=== PATIENT | female | born 1980 | race Caucasian/White ===

== ENCOUNTER → 2016-07-14 | Outpatient (CLI) | payer OTHER ==
--- NOTE | 2016-07-14 13:46 | CARD ---
APPROVED REPORT EXAM: Two-dimensional and M-mode echocardiogram with Doppler and color Doppler. Other Information Quality : GoodHR: 115bpm Rhythm : Tachycardia INDICATION Near syncope, Cardiac murmur 2D DIMENSIONS RVDd2.0 (2.9-3.5cm)Left Atrium(2D)2.9 (1.6-4.0cm) IVSd1.0 (0.7-1.1cm)Aortic Root(2D)3.1 (2.0-3.7cm) LVDd4.7 (3.9-5.9cm)LVOT Diameter2.1 (1.8-2.4cm) PWd0.7 (0.7-1.1cm)LVDs2.8 (2.5-4.0cm) FS (%) 40.1 %SV73.2 ml Aortic Valve AoV Peak Warren.129.3cm/sAoV VTI23.3cm AO Peak GR.6.7mmHgLVOT Peak Warren.98.0cm/s AO Mean GR.4mmHgAVA (VMAX)2.68cm2 Mitral Valve MV E Cpcjzqah358.7cm/sMV DECEL CDLD67yy MV A Dwvpskum548.0cm/sE/A Ratio0.7 MV A Kwsjqyud73ea Pulmonary Valve PV Peak Ftbgzcjq47.6cm/s Tricuspid Valve TR P. Bqlfspcs472th/sTR Peak Gr.46mmHg Pulmonary Vein S1 Knmodcyh63.7cm/sD2 Vhjevnsv41.9cm/s PVa [id number] LEFT VENTRICLE The left ventricle is normal size. There is normal left ventricular wall thickness. The left ventricu lar systolic function is normal and the ejection fraction is within normal range. The Ejection Fracti on is 60-65%. There is normal LV segmental wall motion. Transmitral Doppler flow pattern is Grade I-a bnormal relaxation pattern. RIGHT VENTRICLE The right ventricle is normal size. There is normal right ventricular wall thickness. The right ventr icular systolic function is normal. ATRIA The left atrium size is normal. The right atrium size is normal. The interatrial septum is intact wit h no evidence for an atrial septal defect or patent foramen ovale as noted on 2-D or Doppler imaging. AORTIC VALVE The aortic valve is normal in structure and function. Doppler and Color Flow revealed no significant aortic regurgitation. There is no significant aortic valvular stenosis. MITRAL VALVE There is no evidence of mitral valve prolapse. There is no mitral valve stenosis. Doppler and Color F low revealed trace to mild mitral regurgitation. TRICUSPID VALVE Doppler and Color Flow revealed mild tricuspid regurgitation. The pulmonary artery systolic pressure is estimated at 42 mmHg. PULMONIC VALVE The pulmonary valve is normal in structure and function. Doppler and Color Flow revealed no pulmonic valvular regurgitation. There is no pulmonic valvular stenosis. GREAT VESSELS The aortic root is normal in size. The ascending aorta is normal in size. The pulmonary artery is nor mal. The IVC is normal in size and collapses >50% with inspiration. PERICARDIAL EFFUSION There is no pleural effusion. There is no evidence of significant pericardial effusion. Critical Notification Critical Value: No <Conclusion> The left ventricle is normal size. The left ventricular systolic function is normal and the ejection fraction is within normal range. The Ejection Fraction is 60-65%. There is no significant aortic valvular stenosis. Doppler and Color Flow revealed no significant aortic regurgitation. Doppler and Color Flow revealed trace to mild mitral regurgitation. Doppler and Color Flow revealed mild tricuspid regurgitation. The pulmonary artery systolic pressure is estimated at 42 mmHg.
== END | disposition home or self-care (01) ==
LOC: ECHO 09:03
PROVIDERS: ATTEND Internal Medicine Cardiovascular Disease
DX: I34.0 Nonrheumatic mitral (valve) insufficiency (principal); I07.1 Rheumatic tricuspid insufficiency
CPT/HCPCS: 93306

== ENCOUNTER → 2016-07-15 | Outpatient (CLI) | payer OTHER ==
--- NOTE | 2016-07-15 10:41 | RAD ---
Right hip, 2 views, 07/15/2016: History: Degenerative change at the hip The right hip joint is well maintained. The femoral head is smooth. The periarticular soft tissues are unremarkable. Surgical sutures are noted in the pelvis. IMPRESSION: No significant right hip abnormality is detected.
== END | disposition home or self-care (01) ==
LOC: RAD 09:53
PROVIDERS: ATTEND Family Medicine
DX: M16.11 Unilateral primary osteoarthritis, right hip (principal)
CPT/HCPCS: 73502

== ENCOUNTER → 2017-05-14 | Outpatient (CLI) | payer OTHER | END | disposition home or self-care (01) | LOC: KCIC MRI 13:08 | DX: R55 Syncope and collapse (principal); G43.919 Migraine, unspecified, intractable, without status migrainosus | CPT/HCPCS: 70551 ==

== ENCOUNTER 2017-08-25 15:24 | Emergency (ER) | payer OTHER ==
[2017-08-25] MEDS: ONDANSETRON PF 4 MG/2 ML VIAL. IV (16:00)
[2017-08-25] MEDS: IV NORMAL SALINE 1000ML BAG 1,000 ML IV (16:00)
[2017-08-25 16:05] LABS: URINE HCG POC HCG NEGATIVE (Negative)
[2017-08-25 16:09] LABS: BILIRUBIN,URINE NEGATIVE (NEG); CLARITY,URINE CLOUDY; COLOR,URINE YELLOW; GLUCOSE,URINE NEGATIVE (NEG); NITRITE,URINE NEGATIVE (NEG); PROTEIN,URINE NEGATIVE (NEG-TRACE)
[2017-08-25 16:15] LABS: BACTERIA,URINE MODERATE /HPF (0-FEW); BARBITURATES NEG (NEG); BENZODIAZEPINES NEG (NEG); CANNABINOIDS NEG (NEG); COCAINE NEG (NEG); METHADONE NEG (NEG); OPIATES NEG (NEG); PHENCYCLIDINE NEG (NEG); RBC,URINE >40 /HPF (0-2); SQUAMOUS EPITHELIAL CELL,UR MOD /LPF
[2017-08-25 16:17] LABS: AMPHETAMINE/METHAMPHETAMINE NEG (NEG); ETHANOL, URINE NEG (NEG)
[2017-08-25 16:44] LABS: ADD MAN DIFF? NO
[2017-08-25 16:46] LABS: BASO # 0.1 x10^3/uL (0.0-0.2); BASO % 1 % (0-3); EOS # 0.1 x10^3/uL (0.0-0.7); EOS % 1 % (0-3); HEMATOCRIT 39.7 % (36.0-47.0); HEMOGLOBIN 13.7 g/dL (12.0-15.5); LYMPH # 3.1 x10^3/uL (1.0-4.8); LYMPH % 33 % (24-48); MEAN CORPUSCULAR HEMOGLOBIN 32 pg (25-35); MEAN CORPUSCULAR HGB CONC 35 g/dL (31-37); MEAN CORPUSCULAR VOLUME 91 fL (79-100); MONO # 0.7 x10^3/uL (0.0-1.1); MONO % 7 % (0-9); NEUT # 5.4 x10^3uL (1.8-7.7); NEUT % 58 % (31-73); PLATELET COUNT 377 x10^3/uL (140-400); RED BLOOD COUNT 4.36 x10^6/uL (3.50-5.40); RED CELL DISTRIBUTION WIDTH 12.5 % (11.5-14.5); WHITE BLOOD COUNT 9.3 x10^3/uL (4.0-11.0)
[2017-08-25 16:55] LABS: PROTHROMBIN TIME PATIENT 12.7 SEC (11.7-14.0)
[2017-08-25 17:00] LABS: ETHANOL < 10 mg/dL (0-10)
[2017-08-25 17:01] LABS: ANION GAP 11 (6-14); BLOOD UREA NITROGEN 11 mg/dL (7-20); BUN/CREATININE RATIO 10 (6-20); CALCIUM 8.7 mg/dL (8.5-10.1); CARBON DIOXIDE 24 mmol/L (21-32); CHLORIDE 106 mmol/L (98-107); CREATININE 1.1 mg/dL (0.6-1.0); GFR 56.2; GLUCOSE 118 mg/dL (70-99); POTASSIUM 3.7 mmol/L (3.5-5.1); SODIUM 141 mmol/L (136-145)
[2017-08-25 17:07] LABS: ALBUMIN 3.7 g/dL (3.4-5.0); ALK PHOS 90 U/L (46-116); ALT (SGPT) 21 U/L (14-59); AST (SGOT) 15 U/L (15-37); LIPASE 405 U/L (73-393); MAGNESIUM 1.8 mg/dL (1.8-2.4); TOTAL BILIRUBIN 0.5 mg/dL (0.2-1.0); TOTAL PROTEIN 7.4 g/dL (6.4-8.2)
[2017-08-25 17:09] LABS: TROPONINI < 0.017 ng/mL (0.000-0.055)
[2017-08-25 17:17] LABS: NT-PRO BNP 87 pg/mL (0-124); THYROID STIM HORMONE (TSH) 1.195 uIU/mL (0.358-3.74)
[2017-08-25 17:17] LABS: CKMB MASS < 0.5 ng/mL (0.0-3.6); CREATINE KINASE 50 U/L (26-192)
[2017-08-25] MEDS: fentaNYL PF VIAL 100 MCG/2 ML VIAL IV (17:50)
[2017-08-25] MEDS: TAMSULOSIN 0.4 MG CAP.ER.24H. PO (17:50)
[2017-08-25] MEDS: KETOROLAC 30 MG/ML INJ. IV (17:51)
== END 2017-08-25 18:20 | disposition home or self-care (01) ==
LOC: ER 15:24
DX: N20.0 Calculus of kidney (principal); R42 Dizziness and giddiness; Z87.442 Personal history of urinary calculi
CPT/HCPCS: 36415; 71046; 74176; 80053; 80307; 81001; 81025; 82553; 83690; 83735; 83880; 84443; 84484; 85025; 85610; 87086; 93005; 96361; 96374; 96375; 99285-25; G0480; J1885; J2405; J3010; J7030

== ENCOUNTER 2018-03-08 13:12 | Emergency (ER) | payer OTHER ==
[~2018-03-08] VITALS: Ht 165.1 cm; Wt 90.8 kg
[~2018-03-08 13:12] MED LIST: ALPR0.5T6 PO; CIPR500T94 PO; DIVA500T17 PO; FLUD0.1T PO; HYDR-971 PO; LACT460C PO; LEVO50TA5 PO; LEXAPRO20 MG PO; MULT1TAB52 PO; ONDA4TAB10 SL; OXYC-411 PO; PRAZ1CAP2 PO; TAMS0.4C97 PO; TOPI100T8 PO; TRAM50TA PO; [UNRECOGNIZED DRUG - OTHER] PO
--- NOTE | 2018-03-08 14:21 | PHYS DOC ---
Past Medical History Past Medical History: Anxiety, Depression, Hypothyroid, Kidney Stone, Migraines , Other Additional Past Medical Histor: ptsd Past Surgical History: Tonsillectomy, Other Additional Past Surgical Histo: partial hyster, r leg Alcohol Use: None Drug Use: None Adult General Chief Complaint Chief Complaint: FLANK PAIN HPI HPI Patient is a 37 year old female who presents to the emergency room for evaluation. She states that about 4 days ago she had a gradual onset of left flank pain, which radiated towards her left lower abdomen and pelvic area. She reports some discomfort with urination, and somewhat of a decreased urine output. She has not had any vomiting or fever. She denies any chills, dizziness , lightheadedness, numbness, weakness. She has had a prior hysterectomy. She denies abnormal vaginal bleeding or other pelvic pain. She has had kidney stones in the past and states that this pain feels similar to her prior kidney stones. She states her last episode of kidney stones was about 3 months ago. There are no alleviating or exacerbating factors to the patient's symptoms except as noted above. Review of Systems Review of Systems Constitutional: Denies fever or chills [] Eyes: Denies change in visual acuity, redness, or eye pain [] HENT: Denies nasal congestion or sore throat [] Respiratory: Denies cough or shortness of breath [] Cardiovascular: The patient denies any shortness of breath, chest pain, palpitations, or orthopnea [] GI: Denies vomiting, bloody stools or diarrhea [] : Denies hematuria. Reports some dysuria. [] Musculoskeletal: Denies midline back pain or joint pain [] Integument: Denies rash or skin lesions [] Neurologic: Denies headache, focal weakness or sensory changes [] Endocrine: Denies polyuria or polydipsia [] All other systems were reviewed and found to be within normal limits, except as documented in this note. Current Medications Current Medications Current Medications Medications (Trade) Dose Ordered Sig/Clarissa Start Time Stop Time Status Last Admin Dose Admin Ketorolac Tromethamine (Toradol 30mg Vial) 30 mg 1X ONCE 03/08/18 14:30 03/08/18 14:31 DC 03/08/18 14:44 30 MG Sodium Chloride 1,000 ml @ 1,000 mls/hr Q1H 03/08/18 14:30 03/08/18 15:29 DC 03/08/18 14:43 1,000 MLS/HR Allergies Allergies Allergies Coded Allergies Type Severity Reaction Last Updated Verified No Known Drug Allergies 08/25/17 No Physical Exam Physical Exam PHYSICAL EXAM: CONSTITUTIONAL: Well developed, well nourished HEAD: normocephalic, atraumatic EENT: PERRL, EOMI. Conjunctivae normal color, sclerae non-icteric; moist mucous membranes. NECK: Supple, non-tender; no meningismus. LUNGS: Lungs CTA, breathing even and unlabored. Normal air movement. HEART: Regular rate and rhythm, no murmur CHEST: No deformity; non-tender ABDOMEN: The abdomen is soft, there is mild diffuse left mid and lower abdominal tenderness to palpation, without rebound or guarding. The remainder the abdomen is soft and non-tender, no masses or bruits. EXTREM: Normal ROM; no deformity, no calf tenderness. Normal pulses palpable in all extremities. There is no pedal edema. SKIN: No rash; no diaphoresis NEURO: Alert; normal speech and cognition; CN's grossly intact; strength grossly intact without focal deficit. BACK: There is mild left-sided CVA tenderness to palpation. There is no right CVA TTP, and no midline vertebral tenderness to palpation. Current Patient Data Vital Signs Vital Signs Date Time Temp Pulse Resp B/P (MAP) Pulse Ox O2 Delivery O2 Flow Rate FiO2 03/08/18 14:43 90 22 117/67 (84) 100 Room Air 03/08/18 13:17 98.2 98.2 Lab Values Laboratory Tests Test 03/08/18 13:36 03/08/18 13:58 White Blood Count 8.0 x10^3/uL (4.0-11.0) Red Blood Count 4.21 x10^6/uL (3.50-5.40) Hemoglobin 13.5 g/dL (12.0-15.5) Hematocrit 38.6 % (36.0-47.0) Mean Corpuscular Volume 92 fL (79-100) Mean Corpuscular Hemoglobin 32 pg (25-35) Mean Corpuscular Hemoglobin Concent 35 g/dL (31-37) Red Cell Distribution Width 12.4 % (11.5-14.5) Platelet Count 279 x10^3/uL (140-400) Neutrophils (%) (Auto) 60 % (31-73) Lymphocytes (%) (Auto) 33 % (24-48) Monocytes (%) (Auto) 5 % (0-9) Eosinophils (%) (Auto) 2 % (0-3) Basophils (%) (Auto) 1 % (0-3) Neutrophils # (Auto) 4.8 x10^3uL (1.8-7.7) Lymphocytes # (Auto) 2.6 x10^3/uL (1.0-4.8) Monocytes # (Auto) 0.4 x10^3/uL (0.0-1.1) Eosinophils # (Auto) 0.1 x10^3/uL (0.0-0.7) Basophils # (Auto) 0.1 x10^3/uL (0.0-0.2) Urine Collection Type U cath Urine Color Yellow Urine Clarity Clear Urine pH 7.0 Urine Specific [place] 1.020 Urine Protein 30 mg/dL (NEG-TRACE) Urine Glucose (UA) Negative mg/dL (NEG) Urine Ketones (Stick) Negative mg/dL (NEG) Urine Blood Moderate (NEG) Urine Nitrite Negative (NEG) Urine Bilirubin Negative (NEG) Urine Urobilinogen Dipstick 1.0 mg/dL (0.2 mg/dL) Urine Leukocyte Esterase Trace (NEG) Urine RBC 11-20 /HPF (0-2) Urine WBC 5-10 /HPF (0-4) Urine Squamous Epithelial Cells Mod /LPF Urine Bacteria Few /HPF (0-FEW) Urine Mucus Mod /LPF Sodium Level 142 mmol/L (136-145) Potassium Level 3.4 mmol/L (3.5-5.1) L Chloride Level 107 mmol/L (98-107) Carbon Dioxide Level 24 mmol/L (21-32) Anion Gap 11 (6-14) Blood Urea Nitrogen 13 mg/dL (7-20) Creatinine 1.0 mg/dL (0.6-1.0) Estimated GFR (Cockcroft-Gault) 62.7 BUN/Creatinine Ratio 13 (6-20) Glucose Level 109 mg/dL (70-99) H Calcium Level 8.8 mg/dL (8.5-10.1) Total Bilirubin 0.3 mg/dL (0.2-1.0) Aspartate Amino Transferase (AST) 20 U/L (15-37) Alanine Aminotransferase (ALT) 36 U/L (14-59) Alkaline Phosphatase 70 U/L (46-116) Total Protein 7.2 g/dL (6.4-8.2) Albumin 3.3 g/dL (3.4-5.0) L Albumin/Globulin Ratio 0.8 (1.0-1.7) L Lipase 102 U/L (73-393) POC Urine HCG, Qualitative Hcg negative (Negative) Laboratory Tests 03/08/18 13:36 Laboratory Tests 03/08/18 13:36 EKG EKG [] Radiology/Procedures Radiology/Procedures [PROCEDURE: CT ABDOMEN PELVIS WO CONTRAST PQRS Compliance Statement: One or more of the following individualized dose reduction techniques were utilized for this examination: 1. Automated exposure control 2. Adjustment of the mA and/or kV according to patient size 3. Use of iterative reconstruction technique CT ABDOMEN PELVIS WO CONTRAST Clinical Indication: RIGHT SIDE FLANK PAIN Comparison: CT abdomen and pelvis without contrast, August 25. Technique: Helical CT imaging of the abdomen and pelvis is performed without IV or oral contrast. Findings: Mild bilateral lower lobe atelectasis or scarring. Cardiac size is normal. Gallbladder is contracted, limiting evaluation. The liver, spleen, pancreas, adrenal glands, and abdominal aorta are normal. There are multiple bilateral mostly sub-5 mm renal calculi. No ureteral calculus. No hydronephrosis. Stomach unremarkable. No dilated small bowel. Sigmoid and descending colon diverticulosis. The appendix is normal. There is no colon wall thickening. The urinary bladder is well-distended, otherwise normal. Uterus surgically absent. Probable small left ovary functional cyst. No pelvic free fluid. IMPRESSION: 1. No obstructive uropathy. 2. Multiple bilateral nonobstructing renal calculi, similar to prior study. 3. Distal colon diverticulosis without diverticulitis. ] Course & Med Decision Making Course & Med Decision Making Pertinent Labs and Imaging studies reviewed. (See chart for details) 3:30 PM: The patient's condition remained stable. I discussed test results, the exact uncertain etiology of her symptoms, although I do suspect her urinalysis more likely represents urine contamination with skin cells as opposed to an actual UTI, because of her symptoms of dysuria she'll be treated empirically for possible UTI. I discussed importance of close follow-up with her urologist and return precautions. [] Obi Disclaimer Dragon Disclaimer This electronic medical record was generated, in whole or in part, using a voice recognition dictation system. Departure Departure Impression: Primary Impression: Flank pain Disposition: 01 HOME, SELF-CARE Condition: STABLE Referrals: OLE BARRERA MD (PCP) CURTIS CROCKETT MD Patient Instructions: Flank Pain Scripts Diclofenac Sodium (DICLOFENAC SODIUM) 50 Mg Tablet.dr 1 TAB PO BID, #20 TAB 0 Refills Prov: SHOAIB AGRAWAL MD 03/08/18 Sulfamethoxazole/Trimethoprim (BACTRIM DS TABLET) 1 Each Tablet 1 TAB PO BID, #14 TAB Prov: SHOAIB AGRAWAL MD 03/08/18 SHOAIB AGRAWAL MD Mar 08, 2018 14:21
[2018-03-08] MEDS ORDERED: IV NORMAL SALINE 1000ML BAG 1,000 ML IV SCH (14:30)
[2018-03-08] MEDS ORDERED: KETOROLAC 30 MG/ML VIAL. IV ONE (14:30)
[2018-03-08 14:39] LABS: BASO # 0.1 x10^3/uL (0.0-0.2); BASO % 1 % (0-3); EOS # 0.1 x10^3/uL (0.0-0.7); EOS % 2 % (0-3); HEMATOCRIT 38.6 % (36.0-47.0); HEMOGLOBIN 13.5 g/dL (12.0-15.5); LYMPH # 2.6 x10^3/uL (1.0-4.8); LYMPH % 33 % (24-48); MEAN CORPUSCULAR HEMOGLOBIN 32 pg (25-35); MEAN CORPUSCULAR HGB CONC 35 g/dL (31-37); MEAN CORPUSCULAR VOLUME 92 fL (79-100); MONO # 0.4 x10^3/uL (0.0-1.1); MONO % 5 % (0-9); NEUT # 4.8 x10^3uL (1.8-7.7); NEUT % 60 % (31-73); PLATELET COUNT 279 x10^3/uL (140-400); RED BLOOD COUNT 4.21 x10^6/uL (3.50-5.40); RED CELL DISTRIBUTION WIDTH 12.4 % (11.5-14.5)
[2018-03-08 14:40] LABS: BILIRUBIN,URINE NEGATIVE (NEG); CLARITY,URINE CLEAR; COLOR,URINE YELLOW; NITRITE,URINE NEGATIVE (NEG); PROTEIN,URINE 30 mg/dL (NEG-TRACE)
[2018-03-08 14:48] LABS: CALCIUM 8.8 mg/dL (8.5-10.1); GFR 62.7; POTASSIUM 3.4 mmol/L (3.5-5.1)
[2018-03-08 14:51] LABS: ALBUMIN 3.3 g/dL (3.4-5.0); ALBUMIN/GLOBULIN RATIO 0.8 (1.0-1.7); TOTAL BILIRUBIN 0.3 mg/dL (0.2-1.0); TOTAL PROTEIN 7.2 g/dL (6.4-8.2)
[2018-03-08 14:57] LABS: BACTERIA,URINE FEW /HPF (0-FEW); SQUAMOUS EPITHELIAL CELL,UR MOD /LPF
--- NOTE | 2018-03-08 15:15 | RAD ---
PQRS Compliance Statement: One or more of the following individualized dose reduction techniques were utilized for this examination: 1. Automated exposure control 2. Adjustment of the mA and/or kV according to patient size 3. Use of iterative reconstruction technique CT ABDOMEN PELVIS WO CONTRAST Clinical Indication: RIGHT SIDE FLANK PAIN Comparison: CT abdomen and pelvis without contrast, August 25. Technique: Helical CT imaging of the abdomen and pelvis is performed without IV or oral contrast. Findings: Mild bilateral lower lobe atelectasis or scarring. Cardiac size is normal. Gallbladder is contracted, limiting evaluation. The liver, spleen, pancreas, adrenal glands, and abdominal aorta are normal. There are multiple bilateral mostly sub-5 mm renal calculi. No ureteral calculus. No hydronephrosis. Stomach unremarkable. No dilated small bowel. Sigmoid and descending colon diverticulosis. The appendix is normal. There is no colon wall thickening. The urinary bladder is well-distended, otherwise normal. Uterus surgically absent. Probable small left ovary functional cyst. No pelvic free fluid. IMPRESSION: 1. No obstructive uropathy. 2. Multiple bilateral nonobstructing renal calculi, similar to prior study. 3. Distal colon diverticulosis without diverticulitis. Electronically signed by: Raad Lora MD (03/08/2018 3:11 PM) [id number]
[2018-03-08 15:30] VITALS: BP 119/84
[2018-03-08] MEDS ORDERED: SULF1TAB24 PO (15:33)
[2018-03-08] MEDS ORDERED: DICL50TA4 PO (15:33)
[2018-03-08] MEDS ORDERED: fentaNYL PF VIAL 100 MCG/2 ML VIAL IV ONE (15:45)
== END 2018-03-08 16:36 | disposition home or self-care (01) ==
LOC: ER 13:12
DX: R10.32 Left lower quadrant pain (principal); E03.9 Hypothyroidism, unspecified; Z90.89 Acquired absence of other organs
CPT/HCPCS: 36415; 74176; 80053; 81001; 81025; 83690; 85025; 87086; 96374; 96375; 99285; J1885; J3010; J7030

== ENCOUNTER 2018-05-30 13:58 | Emergency (ER) | payer MEDICAID, OTHER ==
[~2018-05-30] VITALS: Ht 167.6 cm; Wt 81.6 kg
[~2018-05-30 13:58] MED LIST changes: +DICL50TA4 PO; +HYDR-3164 PO; -HYDR-971 PO; +SULF1TAB24 PO
[2018-05-30] MEDS ORDERED: IV NORMAL SALINE 1000ML BAG 1,000 ML IV ONE (14:30)
--- NOTE | 2018-05-30 14:32 | PHYS DOC ---
Past Medical History Past Medical History: Anxiety, Depression, Hypothyroid, Kidney Stone, Migraines , Other Additional Past Medical Histor: ptsd Past Surgical History: Tonsillectomy, Other Additional Past Surgical Histo: partial hyster, r leg Alcohol Use: None Drug Use: None Adult General Chief Complaint Chief Complaint: URINARY RETENTION HPI HPI 37 y/o female presents to ER for c/o rt lower abd/groin pain with difficulty urinating. She reports symptoms started yesterday and have been gradually worsening. Patient states she has history of kidney stones as well as growth on her right ovary. Patient has had partial hysterectomy due to endometriosis. Patient states she has appointment scheduled on the at [facility] for further evaluation for growth on her right ovary. Patient states she has been having difficulty urinating but has been able to void this morning. Pt denies fever, V/D, change in bowel pattern, or swelling. She denies vaginal symptoms or concerns for STDs. Patient states she has had recent pelvic exam which was normal limits. Review of Systems Review of Systems Constitutional: Denies fever or chills [] Respiratory: Denies cough or shortness of breath [] Cardiovascular: No additional information not addressed in HPI [] GI: Denies vomiting, bloody stools or diarrhea. Reports rt lower abd/groin pain with intermittent nausea : Denies hematuria. Reports difficulty urinating with dysuria. Denies vaginal symptoms concerns for STDs as she has monogamous relationship with boyfriend. Musculoskeletal: Denies back pain or joint pain [] Integument: Denies rash, swelling or skin lesions [] Neurologic: Denies headache, focal weakness or sensory changes [] All other systems were reviewed and found to be within normal limits, except as documented in this note. Current Medications Current Medications Current Medications Medications (Trade) Dose Ordered Sig/Clarissa Start Time Stop Time Status Last Admin Dose Admin Fentanyl Citrate (Fentanyl 2ml Vial) 50 mcg 1X ONCE 05/30/18 15:45 05/30/18 15:46 DC 05/30/18 15:52 50 MCG Ketorolac Tromethamine (Toradol 15mg Vial) 15 mg 1X ONCE 05/30/18 16:30 05/30/18 16:31 DC 05/30/18 16:46 15 MG Ondansetron HCl (Zofran) 4 mg 1X ONCE 05/30/18 15:00 05/30/18 15:01 DC 05/30/18 14:39 4 MG Sodium Chloride 1,000 ml @ 1,000 mls/hr 1X ONCE 05/30/18 14:30 05/30/18 15:29 DC 05/30/18 14:30 1,000 MLS/HR Allergies Allergies Allergies Coded Allergies Type Severity Reaction Last Updated Verified No Known Drug Allergies 08/25/17 No Physical Exam Physical Exam Constitutional: Well developed, well nourished, no acute distress, non-toxic appearance. [] HENT: Normocephalic, atraumatic, bilateral external ears normal, oropharynx moist, no oral exudates, nose normal. [] Eyes: Pupils equal, conjunctiva normal, no discharge. [] Neck: Normal range of motion, no tenderness, supple, no stridor. [] Cardiovascular: Heart rate regular rhythm, no murmur [] Lungs & Thorax: Bilateral breath sounds clear to auscultation. Resp. equal/ nonlabored Abdomen: Bowel sounds normal, soft- no distention/rigidity, tender to palp. rt lower abd/groin- no rebound tenderness, no masses, no pulsatile masses. [] Skin: Warm, dry, no erythema, no rash. [] Back: No tenderness, no CVA tenderness. [] Extremities: No tenderness, no cyanosis, no clubbing, ROM intact, no edema. [] Neurologic: Alert and oriented X 3, normal motor function, normal sensory function, no focal deficits noted. [] Psychologic: Affect normal, judgement normal, mood normal. [] Current Patient Data Vital Signs Vital Signs Date Time Temp Pulse Resp B/P (MAP) Pulse Ox O2 Delivery O2 Flow Rate FiO2 05/30/18 16:45 82 16 99 05/30/18 14:42 98.7 116/71 (86) Room Air 98.7 Lab Values Laboratory Tests Test 05/30/18 14:10 05/30/18 14:30 Urine Collection Type Unknown Urine Color Yellow Urine Clarity Clear Urine pH 6.5 Urine Specific [place] 1.010 Urine Protein Negative mg/dL (NEG-TRACE) Urine Glucose (UA) Negative mg/dL (NEG) Urine Ketones (Stick) Negative mg/dL (NEG) Urine Blood Large (NEG) Urine Nitrite Negative (NEG) Urine Bilirubin Negative (NEG) Urine Urobilinogen Dipstick 0.2 mg/dL (0.2 mg/dL) Urine Leukocyte Esterase Negative (NEG) Urine RBC 11-20 /HPF (0-2) Urine WBC 1-4 /HPF (0-4) Urine Squamous Epithelial Cells Many /LPF Urine Bacteria Many /HPF (0-FEW) Urine Mucus Slight /LPF White Blood Count 6.7 x10^3/uL (4.0-11.0) Red Blood Count 4.55 x10^6/uL (3.50-5.40) Hemoglobin 14.3 g/dL (12.0-15.5) Hematocrit 42.0 % (36.0-47.0) Mean Corpuscular Volume 92 fL (79-100) Mean Corpuscular Hemoglobin 32 pg (25-35) Mean Corpuscular Hemoglobin Concent 34 g/dL (31-37) Red Cell Distribution Width 12.8 % (11.5-14.5) Platelet Count 330 x10^3/uL (140-400) Neutrophils (%) (Auto) 46 % (31-73) Lymphocytes (%) (Auto) 41 % (24-48) Monocytes (%) (Auto) 8 % (0-9) Eosinophils (%) (Auto) 4 % (0-3) H Basophils (%) (Auto) 1 % (0-3) Neutrophils # (Auto) 3.1 x10^3uL (1.8-7.7) Lymphocytes # (Auto) 2.7 x10^3/uL (1.0-4.8) Monocytes # (Auto) 0.6 x10^3/uL (0.0-1.1) Eosinophils # (Auto) 0.3 x10^3/uL (0.0-0.7) Basophils # (Auto) 0.1 x10^3/uL (0.0-0.2) Sodium Level 138 mmol/L (136-145) Potassium Level 3.9 mmol/L (3.5-5.1) Chloride Level 105 mmol/L (98-107) Carbon Dioxide Level 27 mmol/L (21-32) Anion Gap 6 (6-14) Blood Urea Nitrogen 8 mg/dL (7-20) Creatinine 0.8 mg/dL (0.6-1.0) Estimated GFR (Cockcroft-Gault) 81.2 BUN/Creatinine Ratio 10 (6-20) Glucose Level 86 mg/dL (70-99) Calcium Level 8.6 mg/dL (8.5-10.1) Total Bilirubin 0.3 mg/dL (0.2-1.0) Aspartate Amino Transferase (AST) 15 U/L (15-37) Alanine Aminotransferase (ALT) 25 U/L (14-59) Alkaline Phosphatase 69 U/L (46-116) Total Protein 7.1 g/dL (6.4-8.2) Albumin 3.4 g/dL (3.4-5.0) Albumin/Globulin Ratio 0.9 (1.0-1.7) L Laboratory Tests 05/30/18 14:30 Laboratory Tests 05/30/18 14:30 EKG EKG [] Radiology/Procedures Radiology/Procedures PROCEDURE: CT ABDOMEN PELVIS WO CONTRAST PQRS Compliance Statement: One or more of the following individualized dose reduction techniques were utilized for this examination: 1. Automated exposure control 2. Adjustment of the mA and/or kV according to patient size 3. Use of iterative reconstruction technique CT ABDOMEN PELVIS WO CONTRAST Clinical Indication: rt lower abd pain- hx of kidney stones Comparison: CT abdomen and pelvis without contrast, March 08, 2018. Technique: Helical CT imaging of the abdomen and pelvis is performed without IV or oral contrast. Findings: Minimal dependent atelectasis the lung bases. Cardiac size normal. Gallbladder is mostly contracted, limiting evaluation. Liver, spleen, pancreas, adrenal glands, and abdominal aorta caliber are normal. Multiple bilateral nonobstructing renal calculi are similar to prior study. There is mild right hydroureteronephrosis secondary to a 6 x 3 mm calculus at the ureterovesicular junction, image 209. Urinary bladder is normal. Stomach unremarkable. No dilated small bowel. The appendix is normal. There is moderate distal colon diverticulosis. No colon wall thickening is seen. No abdominal adenopathy or free fluid. Hysterectomy. Ovaries relatively symmetric. Trace pelvic free fluid is probably physiologic. No acute bone abnormality. IMPRESSION: 1. Mild right obstructive uropathy secondary to a 6 x 3 mm calculus at the ureterovesicular junction. 2. Bilateral nonobstructing renal calculi. 3. Distal colon diverticulosis without diverticulitis. Electronically signed by: Raad Lora MD (05/30/2018 4:15 PM) [facility] DICTATED and SIGNED BY: RAAD LORA MD DATE: 05/30/18 0240 Course & Med Decision Making Course & Med Decision Making Pertinent Labs and Imaging studies reviewed. (See chart for details) 1530: Discussed lab results with patient with labs unremarkable and UA with large blood and negative leukocytes. Patient states she's had minimal relief from initial dose pain medicine will provide second dose. CT abdomen and pelvis is pending. Is nontoxic in appearance at this time and has had no episodes of vomiting. She has been able to urinate while in the ER. 1635: Discussed CT results with patient with 6 x 3 mm obstructive stone right UVJ with mild hydroureter nephrosis-appendix normal limits. Patient reports last dose of pain medicine improved her pain and at this time reports pain to be tolerable. Discussed plans for home discharge as patient has follow-up with urology this week and patient is comfortable with this plan. Patient's WBCs were 6.7 no bands BUN/creatinine normal limits at 8/0.8. UA with large blood negative leukocytes and nitrates. Patient had had partial hysterectomy in past. Patient remains nontoxic in appearance and in no visible distress during this discussion. Advised on signs and symptoms to return to ER for. We will provide prescriptions for Flomax, Zofran ODT, and [place] tablets. Patient reports she has been on those medications in the past and tolerated fine. Will provide dose of Toradol prior to discharge. She is currently denying any nausea. Discharge instructions were discussed and patient was advised to call her urology office in the morning and discuss emergency department visit. Staff Physician Addendum: I was working in the ER during the course of this patient's visit. I was available for consultation as needed, but I was not directly involved in the care of this patient. Dragon Disclaimer Dragon Disclaimer This electronic medical record was generated, in whole or in part, using a voice recognition dictation system. Departure Departure Impression: Primary Impression: Hydroureteronephrosis Additional Impression: Kidney stone on right side Disposition: HOME, SELF-CARE Condition: STABLE Referrals: OLE BARRERA MD (PCP) Patient Instructions: Kidney Stones Additional Instructions: As discussed call your urology office tomorrow and discuss emergency department visit. Drink plenty of water. Ibuprofen as directed on container as needed for additional pain control. Scripts Tamsulosin Hcl (FLOMAX) 0.4 Mg Cap.er.24h 0.4 MG PO DAILY, #7 TAB 0 Refills Prov: HAJA VICENTE APRN 05/30/18 Hydrocodone/Apap 5-325 (NORCO 5-325 TABLET) 1 Each Tablet 1-2 TAB PO Q4-6HRS PRN for PAIN, #16 TAB 0 Refills Prov: HAJA VICENTE APRN 05/30/18 Ondansetron (ONDANSETRON ODT) 4 Mg Tab.rapdis 1 TAB PO PRN Q6-8HRS PRN for NAUSEA, #8 TAB 0 Refills Prov: HAJA VICENTE APRN 05/30/18 Problem Qualifiers HAJA VICENTE APRN May 30, 2018 14:32 OPAL CASTELLON MD May 30, 2018 17:59
[2018-05-30 14:41] LABS: BASO # 0.1 x10^3/uL (0.0-0.2); BASO % 1 % (0-3); EOS # 0.3 x10^3/uL (0.0-0.7); EOS % 4 % (0-3); HEMOGLOBIN 14.3 g/dL (12.0-15.5); LYMPH # 2.7 x10^3/uL (1.0-4.8); LYMPH % 41 % (24-48); MEAN CORPUSCULAR HEMOGLOBIN 32 pg (25-35); MEAN CORPUSCULAR HGB CONC 34 g/dL (31-37); MEAN CORPUSCULAR VOLUME 92 fL (79-100); MONO # 0.6 x10^3/uL (0.0-1.1); MONO % 8 % (0-9); NEUT # 3.1 x10^3uL (1.8-7.7); NEUT % 46 % (31-73); PLATELET COUNT 330 x10^3/uL (140-400); RED BLOOD COUNT 4.55 x10^6/uL (3.50-5.40); RED CELL DISTRIBUTION WIDTH 12.8 % (11.5-14.5); WHITE BLOOD COUNT 6.7 x10^3/uL (4.0-11.0)
[2018-05-30 14:43] LABS: BILIRUBIN,URINE NEGATIVE (NEG); CLARITY,URINE CLEAR; COLOR,URINE YELLOW; NITRITE,URINE NEGATIVE (NEG); PH,URINE 6.5; PROTEIN,URINE NEGATIVE (NEG-TRACE); UROBILINOGEN,URINE 0.2 mg/dL (0.2 mg/dL)
[2018-05-30 14:52] LABS: BACTERIA,URINE MANY /HPF (0-FEW); SQUAMOUS EPITHELIAL CELL,UR MANY /LPF
[2018-05-30 15:00] LABS: ALBUMIN 3.4 g/dL (3.4-5.0); ALBUMIN/GLOBULIN RATIO 0.9 (1.0-1.7); CALCIUM 8.6 mg/dL (8.5-10.1); CREATININE 0.8 mg/dL (0.6-1.0); GFR 81.2; POTASSIUM 3.9 mmol/L (3.5-5.1); TOTAL BILIRUBIN 0.3 mg/dL (0.2-1.0); TOTAL PROTEIN 7.1 g/dL (6.4-8.2)
[2018-05-30] MEDS ORDERED: ONDANSETRON PF 4 MG/2 ML VIAL. IV ONE (15:00)
[2018-05-30] MEDS ORDERED: fentaNYL PF VIAL 100 MCG/2 ML VIAL IV ONE ×2 (15:00→15:45)
--- NOTE | 2018-05-30 16:19 | RAD ---
PQRS Compliance Statement: One or more of the following individualized dose reduction techniques were utilized for this examination: 1. Automated exposure control 2. Adjustment of the mA and/or kV according to patient size 3. Use of iterative reconstruction technique CT ABDOMEN PELVIS WO CONTRAST Clinical Indication: rt lower abd pain- hx of kidney stones Comparison: CT abdomen and pelvis without contrast, March 08, 2018. Technique: Helical CT imaging of the abdomen and pelvis is performed without IV or oral contrast. Findings: Minimal dependent atelectasis the lung bases. Cardiac size normal. Gallbladder is mostly contracted, limiting evaluation. Liver, spleen, pancreas, adrenal glands, and abdominal aorta caliber are normal. Multiple bilateral nonobstructing renal calculi are similar to prior study. There is mild right hydroureteronephrosis secondary to a 6 x 3 mm calculus at the ureterovesicular junction, image 209. Urinary bladder is normal. Stomach unremarkable. No dilated small bowel. The appendix is normal. There is moderate distal colon diverticulosis. No colon wall thickening is seen. No abdominal adenopathy or free fluid. Hysterectomy. Ovaries relatively symmetric. Trace pelvic free fluid is probably physiologic. No acute bone abnormality. IMPRESSION: 1. Mild right obstructive uropathy secondary to a 6 x 3 mm calculus at the ureterovesicular junction. 2. Bilateral nonobstructing renal calculi. 3. Distal colon diverticulosis without diverticulitis. Electronically signed by: Raad Lora MD (05/30/2018 4:15 PM) [facility]
[2018-05-30] MEDS ORDERED: KETOROLAC 15 MG/ML VIAL. IV ONE (16:30)
[2018-05-30] MEDS ORDERED: HYDR-3164 PO (16:44)
[2018-05-30] MEDS ORDERED: ONDA4TAB12 PO (16:44)
[2018-05-30] MEDS ORDERED: TAMS0.4C97 PO (16:44)
[2018-05-30 16:45] VITALS: BP 111/65
== END 2018-05-30 17:29 | disposition home or self-care (01) ==
LOC: ER 13:58
DX: N13.30 Unspecified hydronephrosis (principal); N20.0 Calculus of kidney; E03.9 Hypothyroidism, unspecified; Z90.89 Acquired absence of other organs
CPT/HCPCS: 36415; 74176; 80053; 81001; 85025; 87086; 96374; 96375; 96376; 99284; J1885; J2405; J3010; J7030

== ENCOUNTER 2018-06-14 19:32 | Emergency (ER) | payer OTHER ==
[~2018-06-14] VITALS: Ht 165.1 cm; Wt 86.2 kg
[~2018-06-14 19:32] MED LIST changes: +ONDA4TAB12 PO
[2018-06-14] MEDS ORDERED: IV NORMAL SALINE 1000ML BAG 1,000 ML IV SCH (20:22)
--- NOTE | 2018-06-14 20:28 | PHYS DOC ---
Past Medical History Past Medical History: Hypothyroid, Migraines Additional Past Medical Histor: ptsd Past Surgical History: Hysterectomy Additional Past Surgical Histo: partial hyster, r leg Alcohol Use: None Drug Use: None Adult General Chief Complaint Chief Complaint: POST-OP PROBLEM HPI HPI is a 37-year-old female who presents with complaint of abdominal pain after having recent surgery. Patient states that she had laparoscopic surgery to evaluate a pelvic mass and states that it was found to be her ovary. She states that she was told that the ovary and tube were moved and clipped. She states that since that time she has had a lot of pain up under her right ribs. She states that she was told by the surgeon to do a lot of walking after the surgery to relieve any gas and states that she also took a laxative to make sure she wasn't just constipated. She states that she has been moving her bowels well. She rates the pain at an 8 out of 10. She also complains of right- sided neck pain that radiates into her right shoulder and down her right arm. She states that that pain has been present ever since the surgery. She believes that pain is associated with the recent surgery. Review of Systems Review of Systems Constitutional: Denies fever or chills [] Respiratory: Denies cough or shortness of breath [] Cardiovascular: No additional information not addressed in HPI [] GI: Complains of postoperative abdominal pain without nausea, vomiting or diarrhea [] : [place] of dysuria and vaginal inflammation [] Neurologic: Denies headache, focal weakness or sensory changes [] All other systems were reviewed and found to be within normal limits, except as documented in this note. Current Medications Current Medications Current Medications Medications (Trade) Dose Ordered Sig/Clarissa Start Time Stop Time Status Last Admin Dose Admin Fentanyl Citrate (Fentanyl 2ml Vial) 25 mcg 1X ONCE 06/14/18 20:30 06/14/18 20:31 DC 06/14/18 20:46 25 MCG Info (CONTRAST GIVEN -- Rx MONITORING) 1 each PRN DAILY PRN 06/14/18 20:45 06/16/18 20:44 Iohexol (Omnipaque 300 Mg/ml) 75 ml 1X ONCE 06/14/18 20:45 06/14/18 20:46 DC 06/14/18 22:00 75 ML Ondansetron HCl (Zofran) 4 mg 1X ONCE 06/14/18 20:30 06/14/18 20:31 DC 06/14/18 20:46 4 MG Sodium Chloride 1,000 ml @ 1,000 mls/hr Q1H 06/14/18 20:22 06/14/18 21:21 DC 06/14/18 20:47 1,000 MLS/HR Allergies Allergies Allergies Coded Allergies Type Severity Reaction Last Updated Verified No Known Drug Allergies 08/25/17 No Physical Exam Physical Exam Constitutional: Well developed, well nourished, no acute distress, non-toxic appearance. [] HENT: Normocephalic, atraumatic, bilateral external ears normal, oropharynx moist, no oral exudates, nose normal. [] Eyes: PERRLA, EOMI, conjunctiva normal, no discharge. [] Neck: Normal range of motion, with tenderness to palpation around the cervical strap musculature on the right. [] Cardiovascular:Heart rate regular rhythm, no murmur [] Lungs & Thorax: Bilateral breath sounds clear to auscultation [] Abdomen: Bowel sounds normal, soft, with right upper abdominal tenderness. [] Skin: Warm, dry, no erythema, no rash. [] Extremities: No tenderness, no cyanosis, no clubbing, ROM intact, no edema. [] Neurologic: Alert and oriented X 3, no focal deficits noted. [] Current Patient Data Vital Signs Vital Signs Date Time Temp Pulse Resp B/P (MAP) Pulse Ox O2 Delivery O2 Flow Rate FiO2 06/14/18 20:46 18 99 Room Air 06/14/18 19:40 97.6 115 126/74 (91) 97.6 Lab Values Laboratory Tests Test 06/14/18 19:40 06/14/18 19:53 06/14/18 20:45 Urine Color Yellow Urine Clarity Clear Urine pH 8.0 Urine Specific [place] 1.010 Urine Protein Negative mg/dL (NEG-TRACE) Urine Glucose (UA) Negative mg/dL (NEG) Urine Ketones (Stick) Negative mg/dL (NEG) Urine Blood Negative (NEG) Urine Nitrite Negative (NEG) Urine Bilirubin Negative (NEG) Urine Urobilinogen Dipstick 0.2 mg/dL (0.2 mg/dL) Urine Leukocyte Esterase Negative (NEG) Urine RBC 0 /HPF (0-2) Urine WBC 1-4 /HPF (0-4) Urine Squamous Epithelial Cells Occ /LPF Urine Amorphous Sediment Present /HPF Urine Bacteria 0 /HPF (0-FEW) POC Urine HCG, Qualitative Hcg negative (Negative) White Blood Count 10.0 x10^3/uL (4.0-11.0) Red Blood Count 4.66 x10^6/uL (3.50-5.40) Hemoglobin 14.4 g/dL (12.0-15.5) Hematocrit 43.3 % (36.0-47.0) Mean Corpuscular Volume 93 fL (79-100) Mean Corpuscular Hemoglobin 31 pg (25-35) Mean Corpuscular Hemoglobin Concent 33 g/dL (31-37) Red Cell Distribution Width 13.2 % (11.5-14.5) Platelet Count 335 x10^3/uL (140-400) Neutrophils (%) (Auto) 57 % (31-73) Lymphocytes (%) (Auto) 31 % (24-48) Monocytes (%) (Auto) 6 % (0-9) Eosinophils (%) (Auto) 5 % (0-3) H Basophils (%) (Auto) 1 % (0-3) Neutrophils # (Auto) 5.7 x10^3uL (1.8-7.7) Lymphocytes # (Auto) 3.1 x10^3/uL (1.0-4.8) Monocytes # (Auto) 0.6 x10^3/uL (0.0-1.1) Eosinophils # (Auto) 0.5 x10^3/uL (0.0-0.7) Basophils # (Auto) 0.1 x10^3/uL (0.0-0.2) Sodium Level 140 mmol/L (136-145) Potassium Level 3.8 mmol/L (3.5-5.1) Chloride Level 103 mmol/L (98-107) Carbon Dioxide Level 28 mmol/L (21-32) Anion Gap 9 (6-14) Blood Urea Nitrogen 9 mg/dL (7-20) Creatinine 0.7 mg/dL (0.6-1.0) Estimated GFR (Cockcroft-Gault) 94.7 BUN/Creatinine Ratio 13 (6-20) Glucose Level 59 mg/dL (70-99) L Calcium Level 9.1 mg/dL (8.5-10.1) Total Bilirubin 0.2 mg/dL (0.2-1.0) Aspartate Amino Transferase (AST) 28 U/L (15-37) Alanine Aminotransferase (ALT) 37 U/L (14-59) Alkaline Phosphatase 80 U/L (46-116) Total Protein 7.8 g/dL (6.4-8.2) Albumin 3.6 g/dL (3.4-5.0) Albumin/Globulin Ratio 0.9 (1.0-1.7) L Lipase 80 U/L (73-393) Laboratory Tests 06/14/18 20:45 Laboratory Tests 06/14/18 20:45 EKG EKG [] Radiology/Procedures Radiology/Procedures [] Impressions: REASON: postop abd pain; had lap surgery on the PROCEDURE: CT ABD PELV W/ IV CONTRST ONLY PQRS Compliance statement: One or more of the following individualized dose reduction techniques were utilized for this examination: 1. Automated exposure control. 2. Adjustment of the mA and/or kV according to patient size. 3. Use of iterative reconstruction technique. Indication:POST OP ABD PAIN; OVARIAN SURGERY; OMNI 300, 75ML TECHNIQUE: CT abdomen and pelvis with IV contrast with multiplanar reformats. COMPARISON: 05/30/2018 FINDINGS: Heart is normal in size. No pericardial or pleural effusion. Clear lung bases. Liver, spleen, gallbladder, pancreas, adrenals within normal limits. Multiple bilateral renal stones are seen. The largest stone in the left kidney measures 8 mm. No nephrolithiasis. No free pelvic fluid or ascites. Scattered colonic diverticuli. No bowel obstruction. Normal appendix. Status post hysterectomy. Urinary bladder is within normal limits. Bilateral ovaries are seen. Small pneumoperitoneum. No suspicious bony lesion. IMPRESSION: 1. Small pneumoperitoneum which may be secondary to recent surgery. 2. Nonobstructing bilateral renal stones. Critical findings were identified on 06/14/2018 10:16 PM, read back and verified with Dr. Keene on 06/14/2018 10:[address] Dyllan James DO. Electronically signed by: Dyllan James DO (06/14/2018 10:26 PM) [facility] Course & Med Decision Making Course & Med Decision Making Pertinent Labs and Imaging studies reviewed. (See chart for details) [] Dragon Disclaimer Dragon Disclaimer This electronic medical record was generated, in whole or in part, using a voice recognition dictation system. Departure Departure Impression: Primary Impression: Postoperative abdominal pain Additional Impression: Cervical paraspinal muscle spasm Disposition: 01 HOME, SELF-CARE Condition: STABLE Referrals: OLE BARRERA MD (PCP) Patient Instructions: Muscle Cramps, Pain Relief Preoperatively and Postoperatively Scripts Fluconazole (DIFLUCAN) 150 Mg Tablet 1 TAB PO ONCE, #1 TAB 1 Refill Prov: DON KEENE Jr. DO 06/14/18 Orphenadrine Citrate (ORPHENADRINE CITRATE) 100 Mg Tablet.er 1 TAB PO BID PRN for MUSCLE SPASMS, #20 TAB Prov: DON KEENE Jr. DO 06/14/18 Hydrocodone/Apap 5-325 (NORCO 5-325 TABLET) 1 Each Tablet 1 EACH PO PRN Q6HRS PRN for PAIN, #15 as needed for pain Prov: DON KEENE Jr. DO 06/14/18 Problem Qualifiers DON KEENE Jr. DO Jun 14, 2018 20:28
[2018-06-14] MEDS ORDERED: fentaNYL PF VIAL 100 MCG/2 ML VIAL IV ONE (20:30)
[2018-06-14] MEDS ORDERED: ONDANSETRON PF 4 MG/2 ML VIAL. IV ONE (20:30)
[2018-06-14 20:32] LABS: BILIRUBIN,URINE NEGATIVE (NEG); CLARITY,URINE CLEAR; COLOR,URINE YELLOW; NITRITE,URINE NEGATIVE (NEG); PROTEIN,URINE NEGATIVE (NEG-TRACE); UROBILINOGEN,URINE 0.2 mg/dL (0.2 mg/dL)
[2018-06-14 20:39] LABS: AMORPHOUS SEDIMENT,UR PRESENT /HPF; BACTERIA,URINE 0 /HPF (0-FEW); RBC,URINE 0 /HPF (0-2); SQUAMOUS EPITHELIAL CELL,UR OCC /LPF
[2018-06-14] MEDS ORDERED: CONTRAST GIVEN. MC PRN (20:45)
[2018-06-14] MEDS ORDERED: IOHEXOL 300 MG/ML 100ML VIAL. IV ONE (20:45)
--- NOTE | 2018-06-14 21:16 | RAD ---
Indication: Lower neck pain after abdominal surgery one week ago TECHNIQUE: 3 views of the cervical spine COMPARISON: None FINDINGS: Cervical spine demonstrates straightening. This could be due to muscle spasm or positioning. Atlantoaxial joint interval is preserved. No compression deformity. No significant facet arthropathy. Prevertebral soft tissue within normal limits. Visualized lung apices are clear. IMPRESSION: No acute findings. Electronically signed by: Dyllan James DO (06/14/2018 9:12 PM) [facility]
[2018-06-14 21:38] LABS: BASO # 0.1 x10^3/uL (0.0-0.2); BASO % 1 % (0-3); EOS # 0.5 x10^3/uL (0.0-0.7); EOS % 5 % (0-3); HEMATOCRIT 43.3 % (36.0-47.0); HEMOGLOBIN 14.4 g/dL (12.0-15.5); LYMPH # 3.1 x10^3/uL (1.0-4.8); LYMPH % 31 % (24-48); MEAN CORPUSCULAR HEMOGLOBIN 31 pg (25-35); MEAN CORPUSCULAR HGB CONC 33 g/dL (31-37); MEAN CORPUSCULAR VOLUME 93 fL (79-100); MONO # 0.6 x10^3/uL (0.0-1.1); MONO % 6 % (0-9); NEUT # 5.7 x10^3uL (1.8-7.7); NEUT % 57 % (31-73); PLATELET COUNT 335 x10^3/uL (140-400); RED BLOOD COUNT 4.66 x10^6/uL (3.50-5.40); RED CELL DISTRIBUTION WIDTH 13.2 % (11.5-14.5)
[2018-06-14 21:49] LABS: CALCIUM 9.1 mg/dL (8.5-10.1); CREATININE 0.7 mg/dL (0.6-1.0); GFR 94.7; POTASSIUM 3.8 mmol/L (3.5-5.1)
[2018-06-14 21:55] LABS: ALBUMIN 3.6 g/dL (3.4-5.0); ALBUMIN/GLOBULIN RATIO 0.9 (1.0-1.7); TOTAL BILIRUBIN 0.2 mg/dL (0.2-1.0); TOTAL PROTEIN 7.8 g/dL (6.4-8.2)
--- NOTE | 2018-06-14 22:31 | RAD ---
PQRS Compliance statement: One or more of the following individualized dose reduction techniques were utilized for this examination: 1. Automated exposure control. 2. Adjustment of the mA and/or kV according to patient size. 3. Use of iterative reconstruction technique. Indication:POST OP ABD PAIN; OVARIAN SURGERY; OMNI 300, 75ML TECHNIQUE: CT abdomen and pelvis with IV contrast with multiplanar reformats. COMPARISON: 05/30/2018 FINDINGS: Heart is normal in size. No pericardial or pleural effusion. Clear lung bases. Liver, spleen, gallbladder, pancreas, adrenals within normal limits. Multiple bilateral renal stones are seen. The largest stone in the left kidney measures 8 mm. No nephrolithiasis. No free pelvic fluid or ascites. Scattered colonic diverticuli. No bowel obstruction. Normal appendix. Status post hysterectomy. Urinary bladder is within normal limits. Bilateral ovaries are seen. Small pneumoperitoneum. No suspicious bony lesion. IMPRESSION: 1. Small pneumoperitoneum which may be secondary to recent surgery. 2. Nonobstructing bilateral renal stones. Critical findings were identified on 06/14/2018 10:16 PM, read back and verified with Dr. Keene on 06/14/2018 10:[address] Dyllan James DO. Electronically signed by: Dyllan James DO (06/14/2018 10:26 PM) [facility]
[2018-06-14 22:33] VITALS: BP 112/68
[2018-06-14] MEDS ORDERED: HYDR-3164 PO (22:48)
[2018-06-14] MEDS ORDERED: FLUC150T PO (22:48)
[2018-06-14] MEDS ORDERED: ORPH100T PO (22:48)
== END 2018-06-14 23:00 | disposition home or self-care (01) ==
LOC: ER 19:32
DX: G89.18 Other acute postprocedural pain (principal); R10.11 Right upper quadrant pain; M62.838 Other muscle spasm; M25.511 Pain in right shoulder; E03.9 Hypothyroidism, unspecified; G43.909 Migraine, unspecified, not intractable, without status migrainosus; Z90.711 Acquired absence of uterus with remaining cervical stump
CPT/HCPCS: 36415; 72040; 74177; 80053; 81001; 81025; 83690; 85025; 96374; 96375; 99284; J2405; J3010; J7030; Q9967

== ENCOUNTER 2018-09-04 14:19 | Emergency (ER) | payer OTHER ==
[~2018-09-04] VITALS: Ht 165.1 cm; Wt 86.2 kg
[~2018-09-04 14:19] MED LIST changes: +FLUC150T PO; +ORPH100T PO
[2018-09-04 14:34] VITALS: BP 135/68
[2018-09-04] MEDS ORDERED: NAPROXEN 500 MG TABLET PO STA (14:50)
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
[2018-09-04] MEDS ORDERED: cefTRIAXone IM 250 MG VIAL IM ONE (15:00)
[2018-09-04] MEDS ORDERED: AZITHROMYCIN 250 MG TABLET. PO ONE (15:00)
[2018-09-04 15:05] LABS: BILIRUBIN,URINE NEGATIVE (NEG); CLARITY,URINE CLEAR; COLOR,URINE YELLOW; NITRITE,URINE NEGATIVE (NEG); PROTEIN,URINE NEGATIVE (NEG-TRACE); UROBILINOGEN,URINE 0.2 mg/dL (0.2 mg/dL)
[2018-09-04 15:09] LABS: BACTERIA,URINE 0 /HPF (0-FEW); RBC,URINE OCC /HPF (0-2); SQUAMOUS EPITHELIAL CELL,UR MANY /LPF; WBC,URINE RARE /HPF (0-4)
[2018-09-04] MEDS ORDERED: NAPR-683 PO (15:35)
--- NOTE | 2018-09-04 22:29 | RAD ---
Two-view right femur 09/04/2018 CLINICAL INDICATION: Right leg pain. COMPARISON: None. FINDINGS: No acute fracture or traumatic malalignment. The visualized soft tissues are unremarkable. IMPRESSION: No acute osseous abnormality. Electronically signed by: Eliecer Brown MD (09/04/2018 10:26 PM) [facility]
== END 2018-09-04 15:46 | disposition home or self-care (01) ==
LOC: ER 14:19
DX: S79.921A Unspecified injury of right thigh, initial encounter (principal); Z20.2 Contact with and (suspected) exposure to infections with a predominantly sexual mode of transmission; G43.909 Migraine, unspecified, not intractable, without status migrainosus; E03.9 Hypothyroidism, unspecified; Z90.711 Acquired absence of uterus with remaining cervical stump; W18.39XA Other fall on same level, initial encounter; Y93.89 Activity, other specified; Y92.098 Other place in other non-institutional residence as the place of occurrence of the external cause; Y99.8 Other external cause status
CPT/HCPCS: 73552; 81001; 87491; 87591; 96372; 99285; J0696; Q0111; Q0144

== ENCOUNTER → 2019-02-17 | Outpatient (CLI) | payer MEDICAID ==
[2018-11-05 11:00] VITALS: BP 98/58
[~2019-02-17] MED LIST changes: +HYDR-2769 PO; +LEVO75TA5 PO; +NAPR-683 PO; +PHEN-443 PO; +POTA10TA17 PO
[2019-02-17 15:58] LABS: BILIRUBIN,URINE NEGATIVE (NEG); CLARITY,URINE CLEAR; COLOR,URINE YELLOW; NITRITE,URINE NEGATIVE (NEG); PROTEIN,URINE NEGATIVE (NEG-TRACE); UROBILINOGEN,URINE 0.2 mg/dL (0.2 mg/dL)
[2019-02-17 16:06] LABS: CALCIUM 8.9 mg/dL (8.5-10.1); CREATININE 0.8 mg/dL (0.6-1.0); GFR 80.7; POTASSIUM 4.3 mmol/L (3.5-5.1)
[2019-02-17 16:10] LABS: SQUAMOUS EPITHELIAL CELL,UR MOD /LPF
[2019-02-17 16:11] LABS: BACTERIA,URINE MOD /HPF (0-FEW)
[2019-02-18 03:12] LABS: RHEUMATOID FACTOR <10.0 IU/mL (0.0-13.9)
[2019-02-21 21:09] LABS: ANA INTERP Negative (.)
== END | disposition home or self-care (01) ==
LOC: LAB 15:29
PROVIDERS: ATTEND Internal Medicine Nephrology
DX: N20.0 Calculus of kidney (principal)
CPT/HCPCS: 36415; 80048; 81001; 82570; 84156; 86038; 86431

== ENCOUNTER 2019-02-24 17:35 | Emergency (ER) | payer MEDICAID ==
[~2019-02-24] VITALS: Ht 165.1 cm; Wt 88.0 kg
[2019-02-24 19:22] LABS: BILIRUBIN,URINE NEGATIVE (NEG); CLARITY,URINE CLEAR; COLOR,URINE YELLOW; NITRITE,URINE NEGATIVE (NEG); PROTEIN,URINE NEGATIVE (NEG-TRACE)
[2019-02-24] MEDS ORDERED: AZITHROMYCIN 250 MG TABLET. PO ONE (19:30)
[2019-02-24] MEDS ORDERED: metroNIDAZOLE 500 MG TABLET PO ONE (19:30)
[2019-02-24] MEDS ORDERED: cefTRIAXone IM 250 MG VIAL IM ONE (19:30)
[2019-02-24 19:33] LABS: BACTERIA,URINE MANY /HPF (0-FEW); SQUAMOUS EPITHELIAL CELL,UR MOD /LPF
[2019-02-24 20:37] VITALS: BP 114/71
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
== END 2019-02-24 20:42 | disposition home or self-care (01) ==
LOC: ER 17:35
DX: Z20.2 Contact with and (suspected) exposure to infections with a predominantly sexual mode of transmission (principal); F41.9 Anxiety disorder, unspecified; G43.909 Migraine, unspecified, not intractable, without status migrainosus; Z90.710 Acquired absence of both cervix and uterus; Z90.89 Acquired absence of other organs; Z87.442 Personal history of urinary calculi
CPT/HCPCS: 81001; 87491; 87591; 96372; 99284; J0696; Q0144

== ENCOUNTER → 2019-05-25 | Outpatient (CLI) | payer MEDICAID ==
[2019-05-25 10:44] LABS: CALCIUM 8.9 mg/dL (8.5-10.1); CREATININE 0.8 mg/dL (0.6-1.0); GFR 80.7; POTASSIUM 4.8 mmol/L (3.5-5.1)
[2019-05-25 10:46] LABS: CREATININE,RANDOM URINE 143.9 mg/dL (Not Establ.)
--- NOTE | 2019-05-25 16:11 | RAD ---
EXAM: Renal sonogram. HISTORY: Nephrolithiasis. TECHNIQUE: Sonographic imaging of the kidneys and bladder was performed. COMPARISON: CT dated 11/03/2018. FINDINGS: The kidneys are normal in size. There is slight renal cortical thinning. No solid or cystic renal lesion is seen. There is no hydronephrosis. The bladder is empty. IMPRESSION: 1. No sonographic correlate for nephrolithiasis demonstrated on the prior CT. 2. No hydronephrosis. 2. Suspected slight renal cortical thinning. Electronically signed by: Kimmie Jefferson MD (05/25/2019 4:08 PM) [facility]
== END | disposition home or self-care (01) ==
LOC: US 09:57
PROVIDERS: ATTEND Internal Medicine Nephrology
DX: N20.0 Calculus of kidney (principal)
CPT/HCPCS: 36415; 76770; 80048; 82570; 84156

== ENCOUNTER 2019-06-11 16:28 | Emergency (ER) | payer MEDICAID ==
[~2019-06-11] VITALS: Ht 165.1 cm; Wt 89.0 kg
--- NOTE | 2019-06-11 16:43 | PHYS DOC ---
Past Medical History Past Medical History: Anxiety, Diverticulitis, Kidney Stone, Migraines Additional Past Medical Histor: ptsd Past Surgical History: Hysterectomy, Tonsillectomy Additional Past Surgical Histo: kidney stone removal Alcohol Use: None Drug Use: None Adult General HPI HPI Patient is a 38 year old female who presents with [Maria Guadalupe. Patient reports today she has noticed her lower lip is swollen, states it has seemed to get a little bit worse throughout the day. States she does not know what caused it, states no new foods, no new medications, no new personal care products. States no shortness of breath, however she does feel some burning when she takes a deep breath in the back of her throat. Denies any shortness of breath at this time. Denies any discomfort, other than to lower lip, due to swelling. denies any rash to body.] States never had this happen before and she has not taken any medications for this Review of Systems Review of Systems Constitutional: Denies fever or chills [] Eyes: Denies change in visual acuity, redness, or eye pain [] HENT: Denies nasal congestion or sore throat Reports swelling to lip and tongue[] Respiratory: Denies cough or shortness of breath [] Cardiovascular: No additional information not addressed in HPI [] GI: Denies abdominal pain, nausea, vomiting, bloody stools or diarrhea [] : Denies dysuria or hematuria [] Musculoskeletal: Denies back pain or joint pain [] Integument: Denies rash or skin lesions [] Neurologic: Denies headache, focal weakness or sensory changes [] Endocrine: Denies polyuria or polydipsia [] All other systems were reviewed and found to be within normal limits, except as documented in this note. Current Medications Current Medications Current Medications Medications (Trade) Dose Ordered Sig/Clarissa Start Time Stop Time Status Last Admin Dose Admin Diphenhydramine HCl (Benadryl) 25 mg 1X ONCE 06/11/19 17:15 06/11/19 17:16 DC 06/11/19 17:00 25 MG Famotidine (Pepcid Vial) 20 mg 1X ONCE 06/11/19 17:15 06/11/19 17:16 DC 06/11/19 16:50 20 MG Methylprednisolone Sodium Succinate (SOLU-Medrol 125MG VIAL) 125 mg 1X ONCE 06/11/19 17:15 06/11/19 17:16 DC 06/11/19 16:57 125 MG Ondansetron HCl (Zofran) 4 mg 1X ONCE 06/11/19 17:15 06/11/19 17:16 DC 06/11/19 17:11 4 MG Sodium Chloride 1,000 ml @ 1,000 mls/hr 1X ONCE 06/11/19 16:45 06/11/19 17:44 DC 06/11/19 16:47 1,000 MLS/HR Allergies Allergies Allergies Coded Allergies Type Severity Reaction Last Updated Verified No Known Drug Allergies 08/25/17 No Physical Exam Physical Exam Constitutional: Well developed, well nourished, no acute distress, non-toxic appearance. [] HENT: Normocephalic, atraumatic, bilateral external ears normal, oropharynx mois t, no oral exudates, nose normal. Noted swelling to lower lip with erythema. No appreciable swelling of tongue. Tonsils 0+, no erythema. Oropharynx without noted edema. [] Eyes: PERRLA, EOMI, conjunctiva normal, no discharge. [] Neck: Normal range of motion, no tenderness, supple, no stridor. [] Cardiovascular:Heart rate regular rhythm, no murmur [] Lungs & Thorax: Bilateral breath sounds clear to auscultation [] Abdomen: Bowel sounds normal, soft, no tenderness, no masses, no pulsatile masses. [] Skin: Warm, dry, no erythema, no rash. No hives or whelts noted.[] Back: No tenderness, no CVA tenderness. [] Extremities: No tenderness, no cyanosis, no clubbing, ROM intact, no edema. [] Neurologic: Alert and oriented X 3, normal motor function, normal sensory function, no focal deficits noted. [] Psychologic: Affect normal, judgement normal, mood normal. [] Current Patient Data Vital Signs Vital Signs Date Time Temp Pulse Resp B/P (MAP) Pulse Ox O2 Delivery O2 Flow Rate FiO2 06/11/19 16:28 98.7 107 16 134/88 (103) 99 Room Air 98.7 Lab Values Laboratory Tests Test 06/11/19 16:35 White Blood Count 15.9 x10^3/uL (4.0-11.0) H Red Blood Count 4.58 x10^6/uL (3.50-5.40) Hemoglobin 14.6 g/dL (12.0-15.5) Hematocrit 42.0 % (36.0-47.0) Mean Corpuscular Volume 92 fL (79-100) Mean Corpuscular Hemoglobin 32 pg (25-35) Mean Corpuscular Hemoglobin Concent 35 g/dL (31-37) Red Cell Distribution Width 12.9 % (11.5-14.5) Platelet Count 355 x10^3/uL (140-400) Neutrophils (%) (Auto) 79 % (31-73) H Lymphocytes (%) (Auto) 13 % (24-48) L Monocytes (%) (Auto) 7 % (0-9) Eosinophils (%) (Auto) 0 % (0-3) Basophils (%) (Auto) 1 % (0-3) Neutrophils # (Auto) 12.6 x10^3/uL (1.8-7.7) H Lymphocytes # (Auto) 2.1 x10^3/uL (1.0-4.8) Monocytes # (Auto) 1.1 x10^3/uL (0.0-1.1) Eosinophils # (Auto) 0.0 x10^3/uL (0.0-0.7) Basophils # (Auto) 0.1 x10^3/uL (0.0-0.2) Segmented Neutrophils % 82 % (35-66) H Lymphocytes % 11 % (24-48) L Monocytes % 6 % (0-10) Basophils % 1 % (0-3) Platelet Estimate Adequate (ADEQUATE) Sodium Level 139 mmol/L (136-145) Potassium Level 3.4 mmol/L (3.5-5.1) L Chloride Level 101 mmol/L (98-107) Carbon Dioxide Level 26 mmol/L (21-32) Anion Gap 12 (6-14) Blood Urea Nitrogen 15 mg/dL (7-20) Creatinine 1.0 mg/dL (0.6-1.0) Estimated GFR (Cockcroft-Gault) 62.4 BUN/Creatinine Ratio 15 (6-20) Glucose Level 128 mg/dL (70-99) H Calcium Level 9.3 mg/dL (8.5-10.1) Total Bilirubin 1.0 mg/dL (0.2-1.0) Aspartate Amino Transferase (AST) 153 U/L (15-37) H Alanine Aminotransferase (ALT) 61 U/L (14-59) H Alkaline Phosphatase 87 U/L (46-116) Total Protein 7.6 g/dL (6.4-8.2) Albumin 4.0 g/dL (3.4-5.0) Albumin/Globulin Ratio 1.1 (1.0-1.7) Laboratory Tests 06/11/19 16:35 Laboratory Tests 06/11/19 16:35 EKG EKG [] Radiology/Procedures Radiology/Procedures [] Course & Med Decision Making Course & Med Decision Making Pertinent Labs and Imaging studies reviewed. (See chart for details) [@1730 Patient reporting she's feeling her lips less swollen. states no SOA. Lips noted with decreased swelling. Patient reports she does have some hallucinations from benadryl, reporting she just sees some items around. States she has had this before with benadryl. Will continue to observe ]@1830 Patient states she continues to feel her lips are less swollen, states her tongue does not feel swollen. States she feels good enough to go home. Discussed Epi Pen, reports she doesn't have money for that at that time. Discussed with patient importance of calling EMS if she notices for the swelling, any difficulty breathing or worsening rash. Patient reports she saw her primary care to see if she gets allergy testing. Discussed with patient at times familial angioedema may take 1-2 weeks to return to normal. Primary care may consider testing for this, as she reports her son is also had episode of angioedema however was believed to be related to a spice. Obi Disclaimer Obi Disclaimer This electronic medical record was generated, in whole or in part, using a voice recognition dictation system. Departure Departure Impression: Primary Impression: Angioedema of lips Disposition: HOME, SELF-CARE Condition: GOOD Referrals: OLE BARRERA MD (PCP) Patient Instructions: Angioedema, [id number] Additional Instructions: As we discussed, follow-up with your primary care to determine if they want to r efer you to an cold storage worker for further testing. You may also discuss with your primary care testing for familial angioedema, if concerned. If you start to notice some shortness of breath, for the swelling in her throat, difficulty breathing, call 911 for further evaluation and emergency care as needed. Problem Qualifiers Primary Impression: Angioedema of lips Encounter type: initial encounter Qualified Codes: T78.3XXA - Angioneurotic edema, initial encounter SANTI MONTIEL HOME COORDINATOR Jun 11, 2019 16:43
[2019-06-11 16:45] LABS: BASO # 0.1 x10^3/uL (0.0-0.2); BASO % 1 % (0-3); EOS % 0 % (0-3); HEMOGLOBIN 14.6 g/dL (12.0-15.5); LYMPH # 2.1 x10^3/uL (1.0-4.8); LYMPH % 13 % (24-48); MEAN CORPUSCULAR HEMOGLOBIN 32 pg (25-35); MEAN CORPUSCULAR HGB CONC 35 g/dL (31-37); MEAN CORPUSCULAR VOLUME 92 fL (79-100); MONO # 1.1 x10^3/uL (0.0-1.1); MONO % 7 % (0-9); NEUT # 12.6 x10^3/uL (1.8-7.7); NEUT % 79 % (31-73); PLATELET COUNT 355 x10^3/uL (140-400); RED BLOOD COUNT 4.58 x10^6/uL (3.50-5.40); RED CELL DISTRIBUTION WIDTH 12.9 % (11.5-14.5); WHITE BLOOD COUNT 15.9 x10^3/uL (4.0-11.0)
[2019-06-11] MEDS ORDERED: IV NORMAL SALINE 1000ML BAG 1,000 ML IV ONE (16:45)
[2019-06-11 17:06] LABS: ALBUMIN/GLOBULIN RATIO 1.1 (1.0-1.7); CALCIUM 9.3 mg/dL (8.5-10.1); GFR 62.4; POTASSIUM 3.4 mmol/L (3.5-5.1); TOTAL PROTEIN 7.6 g/dL (6.4-8.2)
[2019-06-11] MEDS ORDERED: ONDANSETRON PF 4 MG/2 ML VIAL. IV ONE (17:15)
[2019-06-11] MEDS ORDERED: diphenhydrAMINE 50 MG/ML VIAL IVP ONE (17:15)
[2019-06-11] MEDS ORDERED: FAMOTIDINE 20 MG/2 ML VIAL IVP ONE (17:15)
[2019-06-11] MEDS ORDERED: methylPREDNISolone SOD SUCC PF 125 MG/2 ML VIAL. IV ONE (17:15)
[2019-06-11 17:25] LABS: % BASOS 1 % (0-3); % LYMPHS 11 % (24-48); % MONOS 6 % (0-10); % SEGS 82 % (35-66)
[2019-06-11 17:26] LABS: PLT ESTIMATE ADEQUATE (ADEQUATE)
[2019-06-11 18:30] VITALS: BP 122/71
[2019-06-14] MEDS ORDERED: METH4TAB2 PO (14:29)
== END 2019-06-11 19:00 | disposition home or self-care (01) ==
LOC: ER 16:28
DX: T78.3XXA Angioneurotic edema, initial encounter (principal); R19.7 Diarrhea, unspecified; G43.909 Migraine, unspecified, not intractable, without status migrainosus; F41.9 Anxiety disorder, unspecified; R44.3 Hallucinations, unspecified; F43.10 Post-traumatic stress disorder, unspecified
CPT/HCPCS: 36415; 80053; 85007; 85025; 96361; 96374; 96375; 99284; J1200; J2405; J2930; J3490; J7030

== ENCOUNTER → 2019-06-14 | Emergency (ER) | payer MEDICAID ==
[2019-06-11 18:30] VITALS: BP 122/71
[~2019-06-14] MED LIST changes: +METH4TAB2 PO
== END ==
LOC: ER 12:19
DX: K13.0 Diseases of lips (principal); K14.8 Other diseases of tongue; R22.0 Localized swelling, mass and lump, head; Z53.21 Procedure and treatment not carried out due to patient leaving prior to being seen by health care provider

== ENCOUNTER 2019-07-27 16:48 | Emergency (ER) | payer MEDICAID ==
[~2019-07-27] VITALS: Ht 165.1 cm; Wt 84.0 kg
[2019-07-27 17:32] VITALS: BP 135/77
[2019-07-27] MEDS ORDERED: FLUC150T PO (18:21)
[2019-07-27] MEDS ORDERED: DICY20TA3 PO (18:21)
[2019-07-27] MEDS ORDERED: ONDA4TAB12 PO (18:21)
[2019-07-27] MEDS ORDERED: ACYC800T PO (18:22)
--- NOTE | 2019-07-27 18:22 | PHYS DOC ---
Past Medical History Past Medical History: Anxiety, Depression, Kidney Stone, Migraines Additional Past Medical Histor: ptsd Past Surgical History: Hysterectomy, Tonsillectomy Additional Past Surgical Histo: lithotripsy, RLE fx repair Smoking Status: Never Smoker Alcohol Use: Occasionally Drug Use: None Adult General Chief Complaint Chief Complaint: OTHER COMPLAINTS [facility] Patient is a 39 year old female who presents with bumps on the lips due to herpes for two days. Denies any fever. Patient is also complaining of nausea, vomiting and diarrhea for three days. Denies any abd pain. Denies any chance is . Patient also believes she has a yeast infection and is requesting a prescription. Denies any concerns for STDs. Review of Systems Review of Systems Constitutional: Denies fever or chills [] Eyes: Denies change in visual acuity, redness, or eye pain [] HENT: Reports lips lesions. Denies nasal congestion or sore throat [] Respiratory: Denies cough or shortness of breath [] Cardiovascular: No additional information not addressed in HPI [] GI: Reports nausea,vomiting and diarrhea. Denies abdominal bloody stools : Reports possible yeast infection. Denies dysuria or hematuria [] Musculoskeletal: Denies back pain or joint pain [] Integument: Denies rash or skin lesions [] Neurologic: Denies headache, focal weakness or sensory changes [] All other systems were reviewed and found to be within normal limits, except as documented in this note. Allergies Allergies Allergies Coded Allergies Type Severity Reaction Last Updated Verified No Known Drug Allergies 08/25/17 No Physical Exam Physical Exam Constitutional: Well developed, well nourished, no acute distress, non-toxic appearance. [] HENT: Normocephalic, atraumatic, bilateral external ears normal, oropharynx moist, no oral exudates, nose normal. upper lip with blisters consistent with herpes. Eyes: PERRLA, EOMI, conjunctiva normal, no discharge. [] Neck: Normal range of motion, no tenderness, supple, no stridor. [] Cardiovascular:Heart rate regular rhythm, no murmur [] Lungs & Thorax: Bilateral breath sounds clear to auscultation [] Abdomen: Bowel sounds normal, soft, no tenderness, no masses, no pulsatile masses. [] Skin: Warm, dry, no erythema, no rash. [] Back: No tenderness, no CVA tenderness. [] Extremities: No tenderness, no cyanosis, no clubbing, ROM intact, no edema. [] Neurologic: Alert and oriented X 3, normal motor function, normal sensory function, no focal deficits noted. [] Psychologic: Affect normal, judgement normal, mood normal. [] Current Patient Data Vital Signs Vital Signs Date Time Temp Pulse Resp B/P (MAP) Pulse Ox O2 Delivery O2 Flow Rate FiO2 07/27/19 17:32 98.3 111 18 135/77 (96) 100 Room Air 98.3 EKG EKG [] Radiology/Procedures Radiology/Procedures [] Course & Med Decision Making Course & Med Decision Making Pertinent Labs and Imaging studies reviewed. (See chart for details) This is a 39-year-old female patient with herpes labialis, discharged with acyclovir. Patient is also complaining of nausea vomiting and diarrhea, given prescription for Zofran dicyclomine. Patient is also requesting prescription for yeast infection, Fluconazole provided Provided instructions to follow-up with her PCP next week. Note for work provided Dragon Disclaimer Dragon Disclaimer This electronic medical record was generated, in whole or in part, using a voice recognition dictation system. Departure Departure Impression: Primary Impression: Herpes labialis Additional Impressions: Nausea, vomiting and diarrhea Yeast infection involving the vagina and surrounding area Disposition: 01 HOME, SELF-CARE Condition: STABLE Referrals: OLE BARRERA MD (PCP) Follow-up with your doctor in 1 week Patient Instructions: Diarrhea, [id number], Herpes Labialis, Nausea and Vomiting, [id number] Additional Instructions: Please take the prescribed medications as ordered. Maintain good hand and pain at home. Push fluids. Follow-up with your doctor next week. Scripts Acyclovir (ACYCLOVIR) 800 Mg Tablet 1 TAB PO 5XDAY, #50 TAB Prov: MUTUNGA,CLUA SOLUTION COORDINATOR 07/27/19 Dicyclomine Hcl (DICYCLOMINE HCL) 20 Mg Tablet 1 TAB PO TID, #20 TAB Prov: MUTUNGA,CLAU SOLUTION COORDINATOR 07/27/19 Ondansetron (ONDANSETRON ODT) 4 Mg Tab.rapdis 1 TAB PO PRN Q6-8HRS, #16 TAB Prov: MUTUNGA,CLAU SOLUTION COORDINATOR 07/27/19 Fluconazole (DIFLUCAN) 150 Mg Tablet 1 TAB PO ONCE, #1 TAB 1 Refill Prov: CLAU CHERRY APRN 07/27/19 Problem Qualifiers CLAU CHERRY APRN Jul 27, 2019 18:22
== END 2019-07-27 18:35 | disposition home or self-care (01) ==
LOC: ER 16:48
DX: B00.1 Herpesviral vesicular dermatitis (principal); R11.2 Nausea with vomiting, unspecified; R19.7 Diarrhea, unspecified; B37.3 Candidiasis of vulva and vagina; G43.909 Migraine, unspecified, not intractable, without status migrainosus; Z87.442 Personal history of urinary calculi; Z90.710 Acquired absence of both cervix and uterus
CPT/HCPCS: 99283

== ENCOUNTER 2019-08-14 17:57 | Emergency (ER) | payer MEDICAID ==
[~2019-08-14] VITALS: Ht 170.2 cm; Wt 90.0 kg
[~2019-08-14 17:57] MED LIST changes: +ACYC800T PO; +DICY20TA3 PO
[2019-08-14 18:24] LABS: BASO # 0.1 x10^3/uL (0.0-0.2); BASO % 1 % (0-3); EOS % 0 % (0-3); HEMATOCRIT 46.4 % (36.0-47.0); HEMOGLOBIN 15.6 g/dL (12.0-15.5); LYMPH # 2.7 x10^3/uL (1.0-4.8); LYMPH % 26 % (24-48); MEAN CORPUSCULAR HEMOGLOBIN 31 pg (25-35); MEAN CORPUSCULAR HGB CONC 34 g/dL (31-37); MEAN CORPUSCULAR VOLUME 93 fL (79-100); MONO # 0.6 x10^3/uL (0.0-1.1); MONO % 5 % (0-9); NEUT # 7.2 x10^3/uL (1.8-7.7); NEUT % 68 % (31-73); PLATELET COUNT 326 x10^3/uL (140-400); RED BLOOD COUNT 5.01 x10^6/uL (3.50-5.40); RED CELL DISTRIBUTION WIDTH 13.9 % (11.5-14.5); WHITE BLOOD COUNT 10.5 x10^3/uL (4.0-11.0)
[2019-08-14] MEDS ORDERED: IV NORMAL SALINE 1000ML BAG 1,000 ML IV ONE (18:30)
[2019-08-14 18:33] LABS: CALCIUM 9.9 mg/dL (8.5-10.1); CREATININE 0.7 mg/dL (0.6-1.0); GFR 93.6
[2019-08-14 18:39] LABS: ALBUMIN 3.9 g/dL (3.4-5.0); ALBUMIN/GLOBULIN RATIO 1.1 (1.0-1.7); MAGNESIUM 1.7 mg/dL (1.8-2.4); TOTAL BILIRUBIN 0.6 mg/dL (0.2-1.0); TOTAL PROTEIN 7.6 g/dL (6.4-8.2)
[2019-08-14 18:44] LABS: BILIRUBIN,URINE NEGATIVE (NEG); CLARITY,URINE CLEAR; COLOR,URINE YELLOW; NITRITE,URINE NEGATIVE (NEG); PH,URINE 6.5 (<5.0-8.0); PROTEIN,URINE NEGATIVE (NEG-TRACE); UROBILINOGEN,URINE 0.2 mg/dL (0.2 mg/dL)
[2019-08-14 18:50] LABS: FREE T4 0.97 ng/dL (0.76-1.46); THYROID STIM HORMONE (TSH) 4.676 uIU/mL (0.358-3.74)
[2019-08-14 18:50] LABS: BACTERIA,URINE FEW /HPF (0-FEW); SQUAMOUS EPITHELIAL CELL,UR MOD /LPF
[2019-08-14 18:57] LABS: BARBITURATES NEG (NEG); BENZODIAZEPINES NEG (NEG); CANNABINOIDS NEG (NEG); COCAINE NEG (NEG); METHADONE NEG (NEG); OPIATES NEG (NEG); PHENCYCLIDINE NEG (NEG)
[2019-08-14 19:00] LABS: AMPHETAMINE/METHAMPHETAMINE NEG (NEG)
--- NOTE | 2019-08-14 19:00 | PHYS DOC ---
Past Medical History Past Medical History: Anxiety, Depression, Kidney Stone, Migraines Additional Past Medical Histor: ptsd Past Surgical History: Hysterectomy, Tonsillectomy Additional Past Surgical Histo: lithotripsy, RLE fx repair Smoking Status: Never Smoker Alcohol Use: Occasionally Drug Use: None Adult General Chief Complaint Chief Complaint: RAPID HEART RATE HPI HPI 39-year-old female presents with 3-4 day history of intermittent episodes of palpitations with associated dizziness and sweating. Reports weakness. Reports nausea/vomiting and "chest tightness". Reports had happened a few years ago without specific diagnosis. Denies syncope. Denies fever/chills. Denies trauma. Denies leg swelling or calf tenderness. Denies known sick contacts. Denies dysuria or cough. Review of Systems Review of Systems Constitutional: Denies fever or chills; reports sweatiness Eyes: Denies redness or eye pain HENT: Denies nasal congestion or sore throat Respiratory: Denies cough or shortness of breath Cardiovascular: Reports chest discomfort and palpitations GI: Denies abdominal pain; reports nausea and vomiting : Denies dysuria or hematuria Musculoskeletal: Denies back pain or joint pain Integument: Denies rash or skin lesions Neurologic: Denies headache, focal weakness or sensory changes; reports weakness Complete systems were reviewed and found to be within normal limits, except as documented in this note. Current Medications Current Medications Current Medications Medications (Trade) Dose Ordered Sig/Clarissa Start Time Stop Time Status Last Admin Dose Admin Sodium Chloride 1,000 ml @ 1,000 mls/hr 1X ONCE 08/14/19 18:30 08/14/19 19:29 DC 08/14/19 18:32 1,000 MLS/HR Allergies Allergies Allergies Coded Allergies Type Severity Reaction Last Updated Verified No Known Drug Allergies 08/25/17 No Physical Exam Physical Exam Constitutional: Well developed, well nourished, no acute distress, non-toxic appearance HENT: Normocephalic, atraumatic, oropharynx moist Eyes: PERRL, EOMI, conjunctiva normal, no discharge, no nystagmus Neck: Normal range of motion, no tenderness, supple Cardiovascular: Heart rate tachycardic, regular rhythm Lungs & Thorax: Bilateral breath sounds clear to auscultation, no wheezing Abdomen: Soft, no tenderness Skin: Warm, dry, no erythema, no rash Extremities: No calf tenderness, ROM intact, no edema Neurologic: Alert and oriented X 3, normal motor function, normal sensory function, no focal deficits noted Psychologic: Affect anxious, judgment normal Current Patient Data Vital Signs Vital Signs Date Time Temp Pulse Resp B/P (MAP) Pulse Ox O2 Delivery O2 Flow Rate FiO2 08/14/19 19:13 98 98 08/14/19 18:00 98.2 18 145/82 (103) Room Air 98.2 Lab Values Laboratory Tests Test 08/14/19 18:05 08/14/19 18:35 08/14/19 18:38 White Blood Count 10.5 x10^3/uL (4.0-11.0) Red Blood Count 5.01 x10^6/uL (3.50-5.40) Hemoglobin 15.6 g/dL (12.0-15.5) H Hematocrit 46.4 % (36.0-47.0) Mean Corpuscular Volume 93 fL (79-100) Mean Corpuscular Hemoglobin 31 pg (25-35) Mean Corpuscular Hemoglobin Concent 34 g/dL (31-37) Red Cell Distribution Width 13.9 % (11.5-14.5) Platelet Count 326 x10^3/uL (140-400) Neutrophils (%) (Auto) 68 % (31-73) Lymphocytes (%) (Auto) 26 % (24-48) Monocytes (%) (Auto) 5 % (0-9) Eosinophils (%) (Auto) 0 % (0-3) Basophils (%) (Auto) 1 % (0-3) Neutrophils # (Auto) 7.2 x10^3/uL (1.8-7.7) Lymphocytes # (Auto) 2.7 x10^3/uL (1.0-4.8) Monocytes # (Auto) 0.6 x10^3/uL (0.0-1.1) Eosinophils # (Auto) 0.0 x10^3/uL (0.0-0.7) Basophils # (Auto) 0.1 x10^3/uL (0.0-0.2) D-Dimer (Mansi) < 0.27 ug/mlFEU Sodium Level 136 mmol/L (136-145) Potassium Level 4.0 mmol/L (3.5-5.1) Chloride Level 100 mmol/L (98-107) Carbon Dioxide Level 29 mmol/L (21-32) Anion Gap 7 (6-14) Blood Urea Nitrogen 12 mg/dL (7-20) Creatinine 0.7 mg/dL (0.6-1.0) Estimated GFR (Cockcroft-Gault) 93.6 BUN/Creatinine Ratio 17 (6-20) Glucose Level 127 mg/dL (70-99) H Calcium Level 9.9 mg/dL (8.5-10.1) Magnesium Level 1.7 mg/dL (1.8-2.4) L Total Bilirubin 0.6 mg/dL (0.2-1.0) Aspartate Amino Transferase (AST) 21 U/L (15-37) Alanine Aminotransferase (ALT) 29 U/L (14-59) Alkaline Phosphatase 71 U/L (46-116) Creatine Kinase 37 U/L (26-192) Creatine Kinase MB (Mass) < 0.5 ng/mL (0.0-3.6) Creatine Kinase MB Relative Index % (0-4) Troponin I Quantitative < 0.017 ng/mL (0.000-0.055) Total Protein 7.6 g/dL (6.4-8.2) Albumin 3.9 g/dL (3.4-5.0) Albumin/Globulin Ratio 1.1 (1.0-1.7) Thyroid Stimulating Hormone (TSH) 4.676 uIU/mL (0.358-3.74) H Free Thyroxine 0.97 ng/dL (0.76-1.46) Free Triiodothyronine (T3) pg/mL 2.77 pg/mL (2.18-3.98) Urine Collection Type Unknown Urine Color Yellow Urine Clarity Clear Urine pH 6.5 (<5.0-8.0) Urine Specific [place] 1.010 (1.000-1.030) Urine Protein Negative mg/dL (NEG-TRACE) Urine Glucose (UA) Negative mg/dL (NEG) Urine Ketones (Stick) Negative mg/dL (NEG) Urine Blood Negative (NEG) Urine Nitrite Negative (NEG) Urine Bilirubin Negative (NEG) Urine Urobilinogen Dipstick 0.2 mg/dL (0.2 mg/dL) Urine Leukocyte Esterase Negative (NEG) Urine RBC 1-2 /HPF (0-2) Urine WBC 5-10 /HPF (0-4) Urine Squamous Epithelial Cells Mod /LPF Urine Bacteria Few /HPF (0-FEW) Urine Mucus Slight /LPF Urine Opiates Screen Neg (NEG) Urine Methadone Screen Neg (NEG) Urine Barbiturates Neg (NEG) Urine Phencyclidine Screen Neg (NEG) Urine Amphetamine/Methamphetamine Neg (NEG) Urine Benzodiazepines Screen Neg (NEG) Urine Cocaine Screen Neg (NEG) Urine Cannabinoids Screen Neg (NEG) Urine Ethyl Alcohol Neg (NEG) POC Urine HCG, Qualitative Hcg negative (Negative) Laboratory Tests 08/14/19 18:05 Laboratory Tests 08/14/19 18:05 EKG EKG @1804 Sinus tachycardia at 112bpm, NO ST elevation, QRS 70ms, QT/QTc 332/455ms Radiology/Procedures Radiology/Procedures PROCEDURE: CHEST PA & LATERAL PA and lateral chest radiographs 08/14/2019. CLINICAL HISTORY: Chest discomfort. PA and lateral digital radiographs of chest were obtained. Comparison study is dated 08/25/2017. The cardiac and mediastinal silhouettes are within normal limits in size and configuration. No acute pulmonary infiltrate is seen. No pleural effusion or pneumothorax is noted. The osseous structures are grossly intact. IMPRESSION: No acute abnormality is seen. Electronically signed by: Josse Dickey MD (08/14/2019 10:48 PM) [id number] Course & Med Decision Making Course & Med Decision Making Pertinent Labs and Imaging studies reviewed. (See chart for details) Patient presents with report of near syncope, palpitations, and nausea/vomiting which has been intermittent over the last several days. Patient neurologically intact. EKG with sinus tachycardia. No calf tenderness. No distress. Labs obtained and posted to chart. TSH slightly elevated but T3 and T4 WNL. Troponin WNL. HEART score 0. CXR without acute process. Patient stable for discharge with outpatient follow-up with PCP. Discussed findings and plan with patient, who acknowledges understanding and agreement. Dragon Disclaimer Dragon Disclaimer This electronic medical record was generated, in whole or in part, using a voice recognition dictation system. Departure Departure Impression: Primary Impression: Palpitations Disposition: HOME, SELF-CARE Condition: STABLE Referrals: OLE BARRERA MD (PCP) ROSEMARIE VILLA MD Patient Instructions: Palpitations, [id number] The HEART Score for CP Pts HEART Score for Chest Pain: HEART Score for Chest Pain Response (Comments) Value History Slighlty/Non-Suspicious 0 ECG Normal 0 Age < 45 0 Risk Factors No Risk Factors 0 Troponin < Normal Limit 0 Total 0 Risk Factors: Risk Factors: DM, Current or recent (<one month) smoker, HTN, HLP, family history of CAD, obesity. Risk Scores: Score 0 - 3: 2.5% MACE over next 6 weeks - Discharge Home Score 4 - 6: 20.3% MACE over next 6 weeks - Admit for Clinical Observation Score 7 - 10: 72.7% MACE over next 6 weeks - Early Invasive Strategies SUKH BARDALES DO Aug 14, 2019 19:00
[2019-08-14 19:13] VITALS: BP 126/66
[2019-08-14 19:40] LABS: CREATINE KINASE 37 U/L (26-192)
--- NOTE | 2019-08-14 22:51 | RAD ---
PA and lateral chest radiographs 08/14/2019. CLINICAL HISTORY: Chest discomfort. PA and lateral digital radiographs of chest were obtained. Comparison study is dated 08/25/2017. The cardiac and mediastinal silhouettes are within normal limits in size and configuration. No acute pulmonary infiltrate is seen. No pleural effusion or pneumothorax is noted. The osseous structures are grossly intact. IMPRESSION: No acute abnormality is seen. Electronically signed by: Josse Dickey MD (08/14/2019 10:48 PM) [id number]
--- NOTE | 2019-08-15 08:55 | EKG ---
[facility] [address] [place] [address] Test Date: 2019-08-14 Test Time: 18:04:17 Pat Name: GLENROY TEE Department: Room: Gender: F Nurse Rn Bsn: : 1980 Requested By: SUKH BARDALES Order Number: [id number] Reading MD: Measurements Intervals [place] Rate: 112 P: 39 OK: 150 QRS: -4 QRSD: 70 T: 19 QT: 332 QTc: 455 Interpretive Statements SINUS TACHYCARDIA LEFTWARD AXIS QRS(T) CONTOUR ABNORMALITY CONSIDER ANTEROSEPTAL MYOCARDIAL DAMAGE POSSIBLY ABNORMAL ECG RI6.01 No previous ECG available for comparison
== END 2019-08-14 21:00 | disposition home or self-care (01) ==
LOC: ER 17:57
DX: R00.2 Palpitations (principal); R42 Dizziness and giddiness; R53.1 Weakness; R11.2 Nausea with vomiting, unspecified; R07.89 Other chest pain; G43.909 Migraine, unspecified, not intractable, without status migrainosus; Z87.442 Personal history of urinary calculi
CPT/HCPCS: 36415; 71046; 80053; 80307; 81001; 81025; 82553; 83735; 84439; 84443; 84481; 84484; 85025; 85379; 87086; 93005; 96360; 99285; J7030

== ENCOUNTER → 2019-11-15 | Outpatient (CLI) | payer MEDICAID ==
[~2019-11-15] MED LIST changes: +MULT-445 PO; -MULT1TAB52 PO
== END | disposition home or self-care (01) ==
LOC: LAB 10:53
PROVIDERS: ATTEND Obstetrics & Gynecology
DX: Z01.419 Encounter for gynecological examination (general) (routine) without abnormal findings (principal); Z20.2 Contact with and (suspected) exposure to infections with a predominantly sexual mode of transmission
CPT/HCPCS: 36415; 86592; 86696; 86703

== ENCOUNTER → 2019-11-15 | Outpatient (CLI) | payer MEDICAID ==
--- NOTE | 2019-11-15 13:12 | KCIC ---
STUDY: MRI of the right knee without contrast INDICATION: Chronic knee pain. Weakness and swelling. No known injury. COMPARISON: No prior MRI is available for review. TECHNIQUE: Multiplanar MR imaging of the right knee performed without the use of intravenous or intra-articular contrast. FINDINGS: Menisci: Mild undersurface irregularity of the medial meniscal body but without a discrete tear. Intact lateral meniscus. Cruciate ligaments: Somewhat diminutive but intact ACL. The PCL is intact. Collateral ligaments: Intact. Tendons: Intact extensor mechanism. The degree of striation at the distal quadriceps is within normal limits. The additional tendons at the knee are intact. Cartilage: Patellofemoral: Intact. Lateral compartment: Intact. Medial compartment: Intact. Bones: Ill-defined edema-like signal at the anterior margin of the tibial plafond and such as seen on image 14 series 5. On the coronal PD sequence there appear to be several small perforating vessels supplying this region, image 19 series 7. Miscellaneous: Normal volume knee joint fluid. TT-TG distance is within normal limits. IMPRESSION: 1. Minimal undersurface irregularity of the medial meniscal body. No meniscal tear is identified. The cruciate and collateral ligaments are intact. 2. Mild ill-defined edema-like signal at the anterior aspect of the tibial plafond however this is of questionable significance given the absence of any reported trauma. There are several small osseous vessels traversing this region and collectively this is favored physiologic. 3. No focal chondral defect. Normal volume joint fluid. Electronically signed by: JEOVANY ISAAC MD (11/15/2019 1:09 PM) [id number]
== END ==
LOC: KCIC MRI 09:57
PROVIDERS: ATTEND Family Medicine
DX: M25.48 Effusion, other site (principal); M25.561 Pain in right knee
CPT/HCPCS: 73721

== ENCOUNTER 2019-12-22 03:11 | Emergency (ER) | payer MEDICAID ==
[~2019-12-22] VITALS: Ht 165.1 cm; Wt 93.6 kg
[~2019-12-22 03:11] MED LIST changes: -OXYC-411 PO; +OXYC1TAB20 PO
[2019-12-22] MEDS ORDERED: PHEN37.53 PO (04:10)
[2019-12-22] MEDS ORDERED: CLON0.5T PO (04:10)
[2019-12-22] MEDS ORDERED: LURA40TA PO (04:11)
[2019-12-22] MEDS ORDERED: ZOLP10TA PO (04:11)
--- NOTE | 2019-12-22 04:20 | PHYS DOC ---
Past Medical History Past Medical History: Anxiety, Depression, Kidney Stone, Migraines Additional Past Medical Histor: ptsd,herpes symplex,hydroureternephosis,angio edema Past Surgical History: Hysterectomy, Tonsillectomy Additional Past Surgical Histo: lithotripsy, RLE fx repair x 3 Smoking Status: Never Smoker Alcohol Use: Occasionally Drug Use: None General Adult EDM: Chief Complaint: ABDOMINAL PAIN HPI: HPI: Patient is a 39 year old female who presents with complaints of epigastric and left upper quadrant abdominal pain. Patient states that she has had pain on and off for over 3-1/2 years. However in the last 3 days the patient states that the pain has been persistent and consistent. She reports no change with food and that there is no improvement or worsening of her pain. She does complain of some nausea without vomiting, no diarrhea, melena or hematochezia. Patient denied any vaginal discharge, change in urination. She describes the pain as a sharp pain that is intermittent replaced by achiness. It is nonradiating. Review of Systems: Review of Systems: Constitutional: Denies fever or chills. [] Eyes: Denies change in visual acuity. [] HENT: Denies nasal congestion or sore throat. [] Respiratory: Denies cough or shortness of breath. [] Cardiovascular: Denies chest pain or edema. [] GI: See HPI [] : Denies dysuria. [] Musculoskeletal: Denies back pain or joint pain. [] Integument: Denies rash. [] Neurologic: Denies headache, focal weakness or sensory changes. [] Endocrine: Denies polyuria or polydipsia. [] Lymphatic: Denies swollen glands. [] Psychiatric: Denies depression or anxiety. [] Heart Score: Risk Factors: Risk Factors: DM, Current or recent (<one month) smoker, HTN, HLP, family history of CAD, obesity. Risk Scores: Score 0 - 3: 2.5% MACE over next 6 weeks - Discharge Home Score 4 - 6: 20.3% MACE over next 6 weeks - Admit for Clinical Observation Score 7 - 10: 72.7% MACE over next 6 weeks - Early Invasive Strategies Allergies: Allergies: Allergies Coded Allergies Type Severity Reaction Last Updated Verified No Known Drug Allergies 08/25/17 No Physical Exam: PE: Constitutional: Well developed, well nourished, no acute distress, non-toxic appearance. [] HENT: Normocephalic, atraumatic, bilateral external ears normal, oropharynx moist, no oral exudates, nose normal. [] Eyes: PERRLA, EOMI, conjunctiva normal, no discharge. [] Neck: Normal range of motion, no tenderness, supple, no stridor. [] Cardiovascular:Heart rate regular rhythm, no murmur [] Lungs & Thorax: Bilateral breath sounds clear to auscultation [] Abdomen: Soft, positive bowel sounds, tender in the epigastrium and less so in the left upper quadrant, negative Sifuentes sign, negative rebound or guarding, negative Rovsing sign. [] Skin: Warm, dry, no erythema, no rash. [] Back: No tenderness, no CVA tenderness. [] Extremities: No tenderness, no cyanosis, no clubbing, ROM intact, no edema. [] Neurologic: Alert and oriented X 3, normal motor function, normal sensory function, no focal deficits noted. [] Psychologic: Affect normal, judgement normal, mood normal. [] Current Patient Data: Labs: Laboratory Tests Test 12/22/19 03:22 POC Urine HCG, Qualitative Hcg negative (Negative) Vital Signs: Vital Signs Date Time Temp Pulse Resp B/P (MAP) Pulse Ox O2 Delivery O2 Flow Rate FiO2 12/22/19 03:30 97.5 95 18 119/74 (89) 99 Room Air 97.5 EKG: EK bpm, sinus rhythm, leftward axis, normal intervals, abnormal ECG [] Radiology/Procedures: Radiology/Procedures: [] Course & Med Decision Making: Course & Med Decision Making Pertinent Labs and Imaging studies reviewed. (See chart for details) 0501-the patient was seen and reevaluated. Patient reported that the pain did not improve with the medications rendered here in the emergency department. Patient stated that she did not think that antacids were to be enough to treat her pain so she decided that she was going to leave. I tried to convince her to stay but she insisted on leaving. I was unable to give her any discharge papers and she left prior to this being performed. I did encourage her to return should she have any concerns or have continued pains [] Joon Disclaimer: Obi Disclaimer: This electronic medical record was generated, in whole or in part, using a voice recognition dictation system. Departure Departure Impression: Primary Impression: Epigastric abdominal pain Disposition: 07 AGAINST MEDICAL ADVICE Condition: STABLE Referrals: OLE BARRERA MD (PCP) Justicifation of Admission Dx: Justifications for Admission: Justification of Admission Dx: N/A KIRK SANTILLAN MD Dec 22, 2019 04:20
[2019-12-22 04:23] LABS: BASO # 0.1 x10^3/uL (0.0-0.2); BASO % 1 % (0-3); EOS # 0.2 x10^3/uL (0.0-0.7); EOS % 3 % (0-3); HEMATOCRIT 41.7 % (36.0-47.0); HEMOGLOBIN 14.1 g/dL (12.0-15.5); LYMPH # 4.1 x10^3/uL (1.0-4.8); LYMPH % 51 % (24-48); MEAN CORPUSCULAR HEMOGLOBIN 32 pg (25-35); MEAN CORPUSCULAR HGB CONC 34 g/dL (31-37); MEAN CORPUSCULAR VOLUME 95 fL (79-100); MONO # 0.7 x10^3/uL (0.0-1.1); MONO % 9 % (0-9); NEUT # 2.9 x10^3/uL (1.8-7.7); NEUT % 36 % (31-73); PLATELET COUNT 346 x10^3/uL (140-400)
[2019-12-22 04:25] LABS: BILIRUBIN,URINE SMALL (NEG); CLARITY,URINE CLEAR; COLOR,URINE YELLOW; NITRITE,URINE NEGATIVE (NEG); PROTEIN,URINE NEGATIVE (NEG-TRACE)
[2019-12-22 04:30] VITALS: BP 106/65
[2019-12-22] MEDS ORDERED: FAMOTIDINE 20 MG TABLET. PO ONE (04:30)
[2019-12-22] MEDS ORDERED: METOCLOPRAMIDE HCL 10 MG/2 ML VIAL. IVP ONE (04:30)
[2019-12-22] MEDS ORDERED: MAG HYDROX/ALUMINUM HYD/SIMETH 30 ML ORAL.SUSP PO ONE (04:30)
[2019-12-22 04:32] LABS: CALCIUM 8.8 mg/dL (8.5-10.1); CREATININE 0.8 mg/dL (0.6-1.0); GFR 80.3; POTASSIUM 3.8 mmol/L (3.5-5.1)
[2019-12-22 04:32] LABS: BACTERIA,URINE FEW /HPF (0-FEW); RBC,URINE OCC /HPF (0-2); SQUAMOUS EPITHELIAL CELL,UR FEW /LPF
[2019-12-22 04:37] LABS: ALBUMIN 3.6 g/dL (3.4-5.0); TOTAL BILIRUBIN 0.4 mg/dL (0.2-1.0); TOTAL PROTEIN 7.2 g/dL (6.4-8.2)
--- NOTE | 2019-12-22 09:35 | EKG ---
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
== END 2019-12-22 04:44 | disposition left against medical advice (07) ==
LOC: ER 03:11
DX: R10.13 Epigastric pain (principal); R10.12 Left upper quadrant pain; R11.0 Nausea; G43.909 Migraine, unspecified, not intractable, without status migrainosus; Z87.442 Personal history of urinary calculi; Z90.710 Acquired absence of both cervix and uterus
CPT/HCPCS: 36415; 80053; 81001; 81025; 83690; 84484; 85025; 93005; 96374; 99284; J2765

== ENCOUNTER 2020-01-08 10:41 | Emergency (ER) | payer MEDICAID ==
[~2020-01-08] VITALS: Ht 165.1 cm; Wt 90.0 kg
[~2020-01-08 10:41] MED LIST changes: +CLON0.5T PO; +LURA40TA PO; +PHEN37.53 PO; +ZOLP10TA PO
--- NOTE | 2020-01-08 11:24 | PHYS DOC ---
Past Medical History Past Medical History: Anxiety, Depression, Kidney Stone, Migraines Additional Past Medical Histor: ptsd,herpes symplex,hydroureternephosis,angio edema Past Surgical History: Hysterectomy, Tonsillectomy Additional Past Surgical Histo: lithotripsy, RLE fx repair x 3 Smoking Status: Never Smoker Alcohol Use: Occasionally Drug Use: None General Adult EDM: Chief Complaint: FLANK PAIN HPI: HPI: Patient is a 39 year old female with a history of kidney stones presents with a 2-day history of right lower back pain that radiates to her right CVA and to her abdomen pain. Patient says the pain is severe in intensity and nothing makes it better or worse. Pain is described as throbbing and constant. Patient denies any hematuria or dysuria but says she has urinary urgency. Patient states this feels like her prior kidney stones. Patient denies any fever cough shortness of breath or recent illnesses. Review of Systems: Review of Systems: Constitutional: Denies fever or chills. [] Eyes: Denies change in visual acuity. [] HENT: Denies nasal congestion or sore throat. [] Respiratory: Denies cough or shortness of breath. [] Cardiovascular: Denies chest pain or edema. [] GI: Complains abdominal pain nausea vomiting but no diarrhea : Denies dysuria. But has urinary frequency Musculoskeletal: Complains of right lower back pain and CVA pain Integument: Denies rash. [] Neurologic: Denies headache, focal weakness or sensory changes. [] Endocrine: Denies polyuria or polydipsia. [] Lymphatic: Denies swollen glands. [] Psychiatric: Denies depression or anxiety. [] Heart Score: Risk Factors: Risk Factors: DM, Current or recent (<one month) smoker, HTN, HLP, family history of CAD, obesity. Risk Scores: Score 0 - 3: 2.5% MACE over next 6 weeks - Discharge Home Score 4 - 6: 20.3% MACE over next 6 weeks - Admit for Clinical Observation Score 7 - 10: 72.7% MACE over next 6 weeks - Early Invasive Strategies Current Medications: Current Medications Medications (Trade) Dose Ordered Sig/Clarissa Start Time Stop Time Status Last Admin Dose Admin Ketorolac Tromethamine (Toradol 15mg Vial) 15 mg 1X ONCE 01/08/20 11:30 01/08/20 11:31 Ondansetron HCl (Zofran) 4 mg 1X ONCE 01/08/20 11:30 01/08/20 11:31 Sodium Chloride 1,000 ml @ 1,000 mls/hr 1X ONCE 01/08/20 11:30 01/08/20 12:29 Allergies: Allergies: Allergies Coded Allergies Type Severity Reaction Last Updated Verified No Known Drug Allergies 08/25/17 No Physical Exam: PE: Constitutional: Well developed, well nourished, no acute distress, non-toxic appearance. [] HENT: Normocephalic, atraumatic, bilateral external ears normal, no trismus, nose normal. [] Eyes: PERRLA, EOMI, conjunctiva normal, no discharge. [] Neck: Normal range of motion, no tenderness, supple, no stridor. [] Cardiovascular:Heart rate regular rhythm, peripheral pulses intact cap refill brisk Lungs & Thorax: Bilateral breath sounds clear, no respiratory distress Abdomen: Mild right-sided abdominal tenderness without guarding or rebound, no masses, no pulsatile masses. [] Skin: Warm, dry, no erythema, no rash. [] Back: No tenderness, right CVA tenderness Extremities: No tenderness, no cyanosis, no clubbing, ROM intact, no edema. [] Neurologic: Alert and oriented X 3, normal motor function, normal sensory function, no focal deficits noted. [] Psychologic: Affect normal, judgement normal, mood normal. [] Current Patient Data: Labs: Laboratory Tests Test 01/08/20 11:25 01/08/20 12:27 White Blood Count 6.9 x10^3/uL Red Blood Count 4.52 x10^6/uL Hemoglobin 14.9 g/dL Hematocrit 43.6 % Mean Corpuscular Volume 96 fL Mean Corpuscular Hemoglobin 33 pg Mean Corpuscular Hemoglobin Concent 34 g/dL Red Cell Distribution Width 13.2 % Platelet Count 306 x10^3/uL Neutrophils (%) (Auto) 54 % Lymphocytes (%) (Auto) 38 % Monocytes (%) (Auto) 5 % Eosinophils (%) (Auto) 3 % Basophils (%) (Auto) 1 % Neutrophils # (Auto) 3.7 x10^3/uL Lymphocytes # (Auto) 2.6 x10^3/uL Monocytes # (Auto) 0.3 x10^3/uL Eosinophils # (Auto) 0.2 x10^3/uL Basophils # (Auto) 0.1 x10^3/uL Sodium Level 141 mmol/L Potassium Level 4.3 mmol/L Chloride Level 104 mmol/L Carbon Dioxide Level 27 mmol/L Anion Gap 10 Blood Urea Nitrogen 10 mg/dL Creatinine 0.9 mg/dL Estimated GFR (Cockcroft-Gault) 70.1 BUN/Creatinine Ratio 11 Glucose Level 133 mg/dL Calcium Level 8.4 mg/dL Total Bilirubin 0.2 mg/dL Aspartate Amino Transf (AST/SGOT) 21 U/L Alanine Aminotransferase (ALT/SGPT) 39 U/L Alkaline Phosphatase 57 U/L Total Protein 6.6 g/dL Albumin 3.5 g/dL Albumin/Globulin Ratio 1.1 Lipase 91 U/L Urine Collection Type Unknown Urine Color Yellow Urine Clarity Clear Urine pH 6.0 Urine Specific [place] 1.015 Urine Protein Negative mg/dL Urine Glucose (UA) Negative mg/dL Urine Ketones (Stick) Negative mg/dL Urine Blood Negative Urine Nitrite Negative Urine Bilirubin Negative Urine Urobilinogen Dipstick 0.2 mg/dL Urine Leukocyte Esterase Negative Urine RBC 0 /HPF Urine WBC 1-4 /HPF Urine Squamous Epithelial Cells Mod /LPF Urine Bacteria Moderate /HPF Urine Mucus Mod /LPF Current Medications Medications (Trade) Dose Ordered Sig/Clarissa Route PRN Reason Start Time Stop Time Status Last Admin Dose Admin Ketorolac Tromethamine (Toradol 15mg Vial) 15 mg 1X ONCE IVP 01/08/20 11:30 01/08/20 11:31 DC 01/08/20 11:34 Sodium Chloride 1,000 ml @ 1,000 mls/hr 1X ONCE IV 01/08/20 11:30 01/08/20 12:29 DC 01/08/20 11:34 Ondansetron HCl (Zofran) 4 mg 1X ONCE IVP 01/08/20 11:30 01/08/20 11:31 DC 01/08/20 11:34 Vital Signs: Vital Signs Date Time Temp Pulse Resp B/P (MAP) Pulse Ox O2 Delivery O2 Flow Rate FiO2 01/08/20 10:52 97.4 102 16 122/77 (92) 100 Room Air 97.4 EKG: EKG: [] Radiology/Procedures: Radiology/Procedures: [][facility] [address] [place] [address] IMAGING REPORT Signed PATIENT: GLENROY TEE ACCOUNT: [id number] : 1980 LOCATION: ER AGE: 39 SEX: F EXAM STATUS: PRE ER ORD. PHYSICIAN: TRACY MOORE MD REASON: Right flank pain x 2 days, h/o stones, r/o stone PROCEDURE: CT ABDOMEN PELVIS WO CONTRAST EXAM: CT ABDOMEN/PELVIS WITHOUT CONTRAST. HISTORY: Right flank pain. TECHNIQUE: Computed tomography of the abdomen and pelvis was performed without intravenous contrast. One or more of the following individualized dose reduction techniques were utilized for this examination: 1. Automated exposure control. 2. Adjustment of the mA and/or kV according to patient size. 3. Use of iterative reconstruction technique. COMPARISON: None. FINDINGS: Lung windows through the visualized portions of the bases reveal mild atelectasis. Bone windows reveal no suspicious lesions. The liver, spleen, adrenal glands, pancreas and gallbladder are unremarkable without contrast. The uterus is surgically absent. The ovaries remain and contain small physiologic follicles. Left colonic diverticulosis is moderate for patient age. The appendix is not inflamed. There is no small bowel obstruction. There are multiple bilateral renal calculi. The largest on the right measures 7 mm in the upper pole. Others measure up to 4 mm on the left. There are no ureteral or bladder calculi. There are no clear suspicious renal lesions without contrast. IMPRESSION: 1. Multiple bilateral renal calculi measure up to 7 mm on the right. No ureteral calculi or hydronephrosis. Electronically signed by: Nora Jones MD (01/08/2020 11:40 AM) [id number] DICTATED and SIGNED BY: CANDELARIA JONES MD DATE: 01/08/20 1140 Course & Med Decision Making: Course & Med Decision Making Pertinent Labs and Imaging studies reviewed. (See chart for details) [] 39-year-old female presents with right flank pain. Patient has history of multiple kidney stones. There is no ureteral stones on her scan. On reassessment patient was in no distress. Patient given prescription for Zofran and anti-inflammatories. Return precautions given. Dragon Disclaimer: Dragon Disclaimer: This electronic medical record was generated, in whole or in part, using a voice recognition dictation system. Departure Departure Impression: Primary Impression: Right flank pain Disposition: 01 HOME, SELF-CARE Condition: STABLE Referrals: OLE BARRERA MD (PCP) 2-3 DAYS Patient Instructions: Kidney Stones Additional Instructions: EMERGENCY DEPARTMENT GENERAL DISCHARGE INSTRUCTIONS THANK YOU for coming to [facility] Emergency Department (ED) today and trusting us with your care. We trust that you had a positive experience in our Emergency Department. If you wish to speak to the department Management you can contact the meat department manager at . YOUR FOLLOW UP INSTRUCTIONS ARE FOLLOWS: Do you have a private doctor? If you do not have a private doctor, please ask for a resource list of physicians or clinics that may be able to assist you with follow up care. The Emergency Physician has interpreted your x-rays. The X-ray specialist will also review them. If there is a change in the findings you will be notified in 48 hours when at all possible. A lab test or lab culture may have been done, your results will be reviewed and you will be notified if you need a change in treatment. ADDITIONAL INSTRUCTIONS AND INFORMATION Your care today has been supervised by a physician who is specially trained in emergency care. Many problems require more than one evaluation for a complete diagnosis and treatment. We recommend that you schedule your follow up appointment as recommended to ensure complete treatment of your illness or injury. If you are unable to obtain follow up care and continue to have a problem, or if your condition worsens we recommend that you return to the ED. We are not able to safely determine your condition over the phone nor are we able to give sound medical advice over the phone. For these safety reasons, if you call for medical advice we will ask you to come to the ED for further evaluation If you have any questions regarding these discharge instructions please call the ED at . SAFETY INFORMATION In the interest of safety, wellness, and injury prevention; we encourage you to wear your seatbelt, if you smoke; quit smoking, and we encourage your family to use protective helmet for bicycling and other sporting events that present an increased risk for head injury. IF YOUR SYMPTOMS WORSEN OR NEW SYMPTOMS DEVELOP, OR YOU HAVE CONCERNS ABOUT YOUR CONDITION; OR IF YOUR CONDITION WORSENS WHILE YOU ARE WAITING FOR YOUR FOLLOW UP APPOINTMENT; EITHER CONTACT YOUR PRIMARY CARE DOCTOR, THE PHYSICIAN WHOSE NAME AND NUMBER YOU WERE GIVEN, OR RETURN TO THE ED IMMEDIATELY. Scripts Ondansetron Hcl (ZOFRAN) 4 Mg Tablet 1 TAB PO PRN Q6-8HRS, #15 TAB Prov: TRACY MOORE MD 01/08/20 Ibuprofen (IBUPROFEN) 600 Mg Tablet 600 MG PO PRN Q6HRS PRN for PAIN, #20 TAB take with food or milk Prov: TRACY MOORE MD 01/08/20 Justicifation of Admission Dx: Justifications for Admission: Justification of Admission Dx: N/A TRACY MOORE MD Jan 08, 2020 11:24
[2020-01-08] MEDS ORDERED: KETOROLAC 15 MG/ML VIAL. IVP ONE (11:30)
[2020-01-08] MEDS ORDERED: ONDANSETRON PF 4 MG/2 ML VIAL. IVP ONE (11:30)
[2020-01-08] MEDS ORDERED: IV NORMAL SALINE 1000ML BAG 1,000 ML IV ONE (11:30)
--- NOTE | 2020-01-08 11:43 | RAD ---
EXAM: CT ABDOMEN/PELVIS WITHOUT CONTRAST. HISTORY: Right flank pain. TECHNIQUE: Computed tomography of the abdomen and pelvis was performed without intravenous contrast. One or more of the following individualized dose reduction techniques were utilized for this examination: 1. Automated exposure control. 2. Adjustment of the mA and/or kV according to patient size. 3. Use of iterative reconstruction technique. COMPARISON: None. FINDINGS: Lung windows through the visualized portions of the bases reveal mild atelectasis. Bone windows reveal no suspicious lesions. The liver, spleen, adrenal glands, pancreas and gallbladder are unremarkable without contrast. The uterus is surgically absent. The ovaries remain and contain small physiologic follicles. Left colonic diverticulosis is moderate for patient age. The appendix is not inflamed. There is no small bowel obstruction. There are multiple bilateral renal calculi. The largest on the right measures 7 mm in the upper pole. Others measure up to 4 mm on the left. There are no ureteral or bladder calculi. There are no clear suspicious renal lesions without contrast. IMPRESSION: 1. Multiple bilateral renal calculi measure up to 7 mm on the right. No ureteral calculi or hydronephrosis. Electronically signed by: Nora Jones MD (01/08/2020 11:40 AM) [id number]
[2020-01-08 11:49] LABS: BASO # 0.1 x10^3/uL (0.0-0.2); BASO % 1 % (0-3); EOS # 0.2 x10^3/uL (0.0-0.7); EOS % 3 % (0-3); HEMATOCRIT 43.6 % (36.0-47.0); HEMOGLOBIN 14.9 g/dL (12.0-15.5); LYMPH # 2.6 x10^3/uL (1.0-4.8); LYMPH % 38 % (24-48); MEAN CORPUSCULAR HEMOGLOBIN 33 pg (25-35); MEAN CORPUSCULAR HGB CONC 34 g/dL (31-37); MEAN CORPUSCULAR VOLUME 96 fL (79-100); MONO # 0.3 x10^3/uL (0.0-1.1); MONO % 5 % (0-9); NEUT # 3.7 x10^3/uL (1.8-7.7); NEUT % 54 % (31-73); PLATELET COUNT 306 x10^3/uL (140-400); RED BLOOD COUNT 4.52 x10^6/uL (3.50-5.40); RED CELL DISTRIBUTION WIDTH 13.2 % (11.5-14.5); WHITE BLOOD COUNT 6.9 x10^3/uL (4.0-11.0)
[2020-01-08 11:56] LABS: CALCIUM 8.4 mg/dL (8.5-10.1); CREATININE 0.9 mg/dL (0.6-1.0); GFR 70.1; POTASSIUM 4.3 mmol/L (3.5-5.1)
[2020-01-08 12:02] LABS: ALBUMIN 3.5 g/dL (3.4-5.0); ALBUMIN/GLOBULIN RATIO 1.1 (1.0-1.7); TOTAL BILIRUBIN 0.2 mg/dL (0.2-1.0); TOTAL PROTEIN 6.6 g/dL (6.4-8.2)
[2020-01-08 12:45] LABS: BILIRUBIN,URINE NEGATIVE (NEG); CLARITY,URINE CLEAR; COLOR,URINE YELLOW; NITRITE,URINE NEGATIVE (NEG); PROTEIN,URINE NEGATIVE (NEG-TRACE); UROBILINOGEN,URINE 0.2 mg/dL (0.2 mg/dL)
[2020-01-08 12:58] LABS: BACTERIA,URINE MODERATE /HPF (0-FEW); RBC,URINE 0 /HPF (0-2); SQUAMOUS EPITHELIAL CELL,UR MOD /LPF
[2020-01-08] MEDS ORDERED: IBUP-1007 PO (13:18)
[2020-01-08] MEDS ORDERED: ONDA4TAB7 PO (13:18)
[2020-01-08 13:29] VITALS: BP 108/68
== END 2020-01-08 13:44 | disposition home or self-care (01) ==
LOC: ER 10:41
DX: R10.31 Right lower quadrant pain (principal); M54.5 Low back pain; G43.909 Migraine, unspecified, not intractable, without status migrainosus; Z87.442 Personal history of urinary calculi; Z90.710 Acquired absence of both cervix and uterus
CPT/HCPCS: 36415; 74176; 80053; 81001; 83690; 85025; 87086; 96361; 96374; 96375; 99285; J1885; J2405; J7030

== ENCOUNTER 2020-02-21 16:48 | Emergency (ER) | payer MEDICAID ==
[~2020-02-21] VITALS: Ht 165.1 cm; Wt 89.0 kg
[~2020-02-21 16:48] MED LIST changes: +IBUP-1007 PO; +ONDA4TAB7 PO
[2020-02-21 17:55] VITALS: BP 131/77
[2020-02-21 18:21] LABS: BILIRUBIN,URINE NEGATIVE (NEG); CLARITY,URINE CLEAR; COLOR,URINE YELLOW; NITRITE,URINE NEGATIVE (NEG); PROTEIN,URINE NEGATIVE (NEG-TRACE); UROBILINOGEN,URINE 0.2 mg/dL (0.2 mg/dL)
[2020-02-21 18:30] LABS: HYALINE CASTS, URINE FEW /HPF
[2020-02-21] MEDS ORDERED: ONDANSETRON PF 4 MG/2 ML VIAL. IVP ONE (18:30)
[2020-02-21] MEDS ORDERED: MORPHINE SULFATE 10 MG/ML VIAL. IV ONE (18:30)
[2020-02-21] MEDS ORDERED: IV NORMAL SALINE 1000ML BAG 1,000 ML IV ONE (18:30)
[2020-02-21 18:31] LABS: BACTERIA,URINE FEW /HPF (0-FEW); RBC,URINE >40 /HPF (0-2)
[2020-02-21 18:34] LABS: BASO # 0.1 x10^3/uL (0.0-0.2); BASO % 1 % (0-3); EOS # 0.3 x10^3/uL (0.0-0.7); EOS % 3 % (0-3); HEMATOCRIT 39.6 % (36.0-47.0); HEMOGLOBIN 13.8 g/dL (12.0-15.5); LYMPH # 3.1 x10^3/uL (1.0-4.8); LYMPH % 34 % (24-48); MEAN CORPUSCULAR HEMOGLOBIN 33 pg (25-35); MEAN CORPUSCULAR HGB CONC 35 g/dL (31-37); MEAN CORPUSCULAR VOLUME 95 fL (79-100); MONO # 0.6 x10^3/uL (0.0-1.1); MONO % 7 % (0-9); NEUT # 5.1 x10^3/uL (1.8-7.7); NEUT % 56 % (31-73); PLATELET COUNT 353 x10^3/uL (140-400); RED BLOOD COUNT 4.18 x10^6/uL (3.50-5.40); RED CELL DISTRIBUTION WIDTH 12.9 % (11.5-14.5); WHITE BLOOD COUNT 9.2 x10^3/uL (4.0-11.0)
[2020-02-21 18:57] LABS: CALCIUM 8.9 mg/dL (8.5-10.1); CREATININE 0.7 mg/dL (0.6-1.0); GFR 93.6; POTASSIUM 3.8 mmol/L (3.5-5.1)
[2020-02-21 19:03] LABS: ALBUMIN 3.9 g/dL (3.4-5.0); ALBUMIN/GLOBULIN RATIO 1.1 (1.0-1.7); TOTAL BILIRUBIN 0.2 mg/dL (0.2-1.0); TOTAL PROTEIN 7.6 g/dL (6.4-8.2)
--- NOTE | 2020-02-21 19:03 | RAD ---
Exam: CT of abdomen and pelvis without contrast INDICATION: Severe pain TECHNIQUE: Sequential axial images through the abdomen and pelvis obtained without IV contrast. Sagittal and coronal reformatted images were reconstructed from the axial data and reviewed. Comparisons: 01/08/2020 FINDINGS: Heart size is normal. No pericardial effusion. Visualized lung bases are clear. No pleural effusion. Evaluation of solid organs limited secondary to noncontrast technique. Liver, spleen, pancreas, gallbladder and adrenals are unremarkable. There is moderate left-sided hydronephrosis. There is a 4 mm calculus the distal left ureter. Several nonobstructing renal calculi are noted bilaterally. Bladder is partially distended and not well evaluated. Uterus is absent. No abnormal adnexal mass. There are a few scattered diverticula noted within the descending and sigmoid colon without evidence of acute diverticulitis. Remainder of the large and small bowel are unremarkable. Appendix is normal. No free intra-abdominal air or fluid. No obstruction. Abdominal aorta has a normal course and caliber. No enlarged abdominal lymph nodes are identified. No suspicious osseous lesions or acute fractures. IMPRESSION: 1. A 4 mm calculus at the distal left ureter causing moderate left-sided hydronephrosis. 2. Several nonobstructing renal calculi bilaterally. 3. Diverticulosis without evidence of acute diverticulitis. Exposure: One or more of the following in the visualized dose reduction techniques were utilized for this examination: 1. Automated exposure control 2. Adjustment of the MA and/or KV according to patient size 3. Use of iterative of reconstructive technique Electronically signed by: Annamaria Watters MD (02/21/2020 7:00 PM) [facility]
[2020-02-21] MEDS ORDERED: KETOROLAC 30 MG/ML VIAL. IVP ONE (19:30)
--- NOTE | 2020-02-21 19:44 | PHYS DOC ---
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 This started 2 days ago. She states this feels very similar to prior kidney stones that she has had. She does not know if she has had any hematuria. She has not had any fever. She has had some nausea and vomiting that started this evening. She has required lithotripsy twice in the past. She does have a history of hydronephrosis. She typically follows with urology and nephrology outpatient. Review of Systems: Review of Systems: General: Denies fever, chills, sweats, fatigue Eyes: Denies drainage, blurred vision, eye redness HENT: Denies rhinorrhea, sore throat, earache Respiratory: Denies cough, shortness of breath, wheezing Cardiac: Denies edema, palpitations, chest pain GI: Reports abdominal pain, flank pain, nausea, vomiting MSK: Denies back pain, neck pain Skin: Denies rash, jaundice Neuro: Denies headache, dizziness Psychiatric: Denies SI/HI Heart Score: Risk Factors: Risk Factors: DM, Current or recent (<one month) smoker, HTN, HLP, family history of CAD, obesity. Risk Scores: Score 0 - 3: 2.5% MACE over next 6 weeks - Discharge Home Score 4 - 6: 20.3% MACE over next 6 weeks - Admit for Clinical Observation Score 7 - 10: 72.7% MACE over next 6 weeks - Early Invasive Strategies Current Medications: Current Medications Medications (Trade) Dose Ordered Sig/Clarissa Start Time Stop Time Status Last Admin Dose Admin Ketorolac Tromethamine (Toradol 30mg Vial) 30 mg 1X ONCE 02/21/20 19:30 02/21/20 19:31 DC 02/21/20 19:25 30 MG Morphine Sulfate (Morphine Sulfate) 5 mg 1X ONCE 02/21/20 18:30 02/21/20 18:31 DC 02/21/20 18:32 5 MG Ondansetron HCl (Zofran) 4 mg 1X ONCE 02/21/20 18:30 02/21/20 18:31 DC 02/21/20 18:32 4 MG Sodium Chloride 1,000 ml @ 1,000 mls/hr 1X ONCE 02/21/20 18:30 02/21/20 19:29 DC 02/21/20 18:31 1,000 MLS/HR Allergies: Allergies: Allergies Coded Allergies Type Severity Reaction Last Updated Verified No Known Drug Allergies 08/25/17 No Physical Exam: PE: General: Awake, alert, mild distress. Well Nourished, well hydrated. Cooperative HEENT: Atraumatic, EOMI, PERRL, airway patent, moist oral mucosa Neck: Supple, trachea midline Respiratory: CTA bilaterally, normal effort, no wheezing/crackles CV: RRR, no murmur, cap refill <2 GI: Soft, nondistended, nontender, no masses MSK: No obvious deformities Skin: Warm, dry, intact Neuro: A&O x3, speech NL, sensory and motor grossly intact, no focal deficits Psych: Normal affect, normal mood, not suicidal or homicidal Current Patient Data: Labs: Laboratory Tests Test 02/21/20 17:55 02/21/20 18:04 02/21/20 18:15 Urine Collection Type Unknown Urine Color Yellow Urine Clarity Clear Urine pH 6.0 (<5.0-8.0) Urine Specific [place] 1.015 (1.000-1.030) Urine Protein Negative mg/dL (NEG-TRACE) Urine Glucose (UA) Negative mg/dL (NEG) Urine Ketones (Stick) Negative mg/dL (NEG) Urine Blood Large (NEG) Urine Nitrite Negative (NEG) Urine Bilirubin Negative (NEG) Urine Urobilinogen Dipstick 0.2 mg/dL (0.2 mg/dL) Urine Leukocyte Esterase Negative (NEG) Urine RBC >40 /HPF (0-2) Urine WBC 1-4 /HPF (0-4) Urine Squamous Epithelial Cells Mod /LPF Urine Bacteria Few /HPF (0-FEW) Urine Hyaline Casts Few /HPF Urine Mucus Marked /LPF POC Urine HCG, Qualitative Hcg negative (Negative) White Blood Count 9.2 x10^3/uL (4.0-11.0) Red Blood Count 4.18 x10^6/uL (3.50-5.40) Hemoglobin 13.8 g/dL (12.0-15.5) Hematocrit 39.6 % (36.0-47.0) Mean Corpuscular Volume 95 fL (79-100) Mean Corpuscular Hemoglobin 33 pg (25-35) Mean Corpuscular Hemoglobin Concent 35 g/dL (31-37) Red Cell Distribution Width 12.9 % (11.5-14.5) Platelet Count 353 x10^3/uL (140-400) Neutrophils (%) (Auto) 56 % (31-73) Lymphocytes (%) (Auto) 34 % (24-48) Monocytes (%) (Auto) 7 % (0-9) Eosinophils (%) (Auto) 3 % (0-3) Basophils (%) (Auto) 1 % (0-3) Neutrophils # (Auto) 5.1 x10^3/uL (1.8-7.7) Lymphocytes # (Auto) 3.1 x10^3/uL (1.0-4.8) Monocytes # (Auto) 0.6 x10^3/uL (0.0-1.1) Eosinophils # (Auto) 0.3 x10^3/uL (0.0-0.7) Basophils # (Auto) 0.1 x10^3/uL (0.0-0.2) Sodium Level 139 mmol/L (136-145) Potassium Level 3.8 mmol/L (3.5-5.1) Chloride Level 104 mmol/L (98-107) Carbon Dioxide Level 26 mmol/L (21-32) Anion Gap 9 (6-14) Blood Urea Nitrogen 14 mg/dL (7-20) Creatinine 0.7 mg/dL (0.6-1.0) Estimated GFR (Cockcroft-Gault) 93.6 BUN/Creatinine Ratio 20 (6-20) Glucose Level 98 mg/dL (70-99) Calcium Level 8.9 mg/dL (8.5-10.1) Total Bilirubin 0.2 mg/dL (0.2-1.0) Aspartate Amino Transferase (AST) 16 U/L (15-37) Alanine Aminotransferase (ALT) 21 U/L (14-59) Alkaline Phosphatase 61 U/L (46-116) Total Protein 7.6 g/dL (6.4-8.2) Albumin 3.9 g/dL (3.4-5.0) Albumin/Globulin Ratio 1.1 (1.0-1.7) Laboratory Tests 02/21/20 18:15 Laboratory Tests 02/21/20 18:15 Vital Signs: Vital Signs Date Time Temp Pulse Resp B/P (MAP) Pulse Ox O2 Delivery O2 Flow Rate FiO2 02/21/20 17:55 98.5 118 20 131/77 (95) 99 Room Air 98.5 EKG: EKG: [] Radiology/Procedures: Radiology/Procedures: [] Course & Med Decision Making: Course & Med Decision Making Pertinent Labs and Imaging studies reviewed. (See chart for details) Kidney pain patient is a 39 year old who presents to the Emergency Room complaining of left flank pain. On exam, patient appears uncomfortable. Patient's presentation is concerning for a possible kidney stone. Patient was given morphine and Toradol for pain relief. CBC, BMP, UA were ordered to e valuate for kidney function and infection. CT abdomen and pelvis without contrast was ordered to evaluate for a kidney stone. CT shows 4 mm stone. At this time, patient does not have significant infection, signs of sepsis, HUBER, or uncontrolled pain that requires admission. Patient will be treated sy mptomatically and referred to urology. Patient's test results and vitals while in the ED were fully reviewed and discussed with the patient. Patient is stable and at this time does not need admission to the hospital. We have discussed strict return precautions and the importance of following up with their Primary Care Physician. Patient stated understanding and was given an opportunity to ask any questions. Patient is in agreement with plan. Dragon Disclaimer: Dragon Disclaimer: This electronic medical record was generated, in whole or in part, using a voice recognition dictation system. Departure Departure Impression: Primary Impression: Flank pain Additional Impressions: Kidney stone Hydronephrosis, left Disposition: 01 HOME, SELF-CARE Condition: IMPROVED Referrals: OLE BARRERA MD (PCP) Patient Instructions: Kidney Stones Scripts Oxycodone/Apap 5-325 (PERCOCET 5-325 MG TABLET ) 1 Each Tablet 1 TAB PO PRN Q6HRS PRN for PAIN, #12 TAB 0 Refills Prov: AMOS STRANGE MD 02/21/20 AMOS STRANGE MD Feb 21, 2020 19:44
[2020-02-21] MEDS ORDERED: HYDROmorphone 2 MG/ML VIAL IVP ONE ×2 (20:00→21:15)
[2020-02-21] MEDS ORDERED: OXYC1TAB15 PO (21:07)
== END 2020-02-21 21:46 | disposition home or self-care (01) ==
LOC: ER 16:48
DX: N13.2 Hydronephrosis with renal and ureteral calculous obstruction (principal); G43.909 Migraine, unspecified, not intractable, without status migrainosus; F32.9 Major depressive disorder, single episode, unspecified; F43.10 Post-traumatic stress disorder, unspecified; F41.9 Anxiety disorder, unspecified; Z90.710 Acquired absence of both cervix and uterus
CPT/HCPCS: 36415; 74176; 80053; 81001; 81025; 85025; 96361; 96374; 96375; 96376; 99284; J1170; J1885; J2270; J2405; J7030

== ENCOUNTER 2020-02-23 18:55 | Emergency (ER) | payer MEDICAID ==
[~2020-02-23] VITALS: Ht 165.1 cm; Wt 89.0 kg
[~2020-02-23 18:55] MED LIST changes: +OXYC1TAB15 PO
[2020-02-23 19:16] LABS: BILIRUBIN,URINE NEGATIVE (NEG); CLARITY,URINE CLEAR; COLOR,URINE YELLOW; NITRITE,URINE NEGATIVE (NEG); PH,URINE 5.5 (<5.0-8.0); PROTEIN,URINE NEGATIVE (NEG-TRACE); UROBILINOGEN,URINE 0.2 mg/dL (0.2 mg/dL)
[2020-02-23] MEDS ORDERED: IV NORMAL SALINE 1000ML BAG 1,000 ML IV SCH (19:17)
--- NOTE | 2020-02-23 19:28 | PHYS DOC ---
Past Medical History Past Medical History: Anxiety, Depression, Kidney Stone, Migraines Additional Past Medical Histor: ptsd,herpes symplex,hydroureternephosis,angio edema Past Surgical History: Hysterectomy, Tonsillectomy Additional Past Surgical Histo: lithotripsy, RLE fx repair x 3 Smoking Status: Never Smoker Alcohol Use: Occasionally Drug Use: None General Adult EDM: Chief Complaint: FLANK PAIN HPI: HPI: 39-year-old female past medical history significant for hypothyroidism, anxiety, depression, insomnia, and history of chronic nephrolithiasis, presents to the ED as a bounce back with complaints of left flank and left upper quadrant abdominal pain-states this is the same pain she was experiencing 2 days ago in the ED, no relief with Zofran and percocet at home. Associated nausea and loose watery nonbloody diarrhea. 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 Has a urology appointment on Thursday with Dr. Snyder ([facility]) - he referred her to the ed. Reports history of lithotripsy twice. Is not on any antibiotics. Primary care physician is Dr. Boucher. EMR reviewed, Ct abd/pel w/o contrast 02/20 shows 4mm uterolithiasis with moderate left-sided hydronephrosis and several nonobstructing renal calculi bilaterally (normal aorta). Pt was not febrile on 02/20, had no leukocytosis, was tachycardic at 118. Review of Systems: Review of Systems: Constitutional: Denies fever or chills. [] Eyes: Denies change in visual acuity. [] HENT: Denies nasal congestion or sore throat. [] Respiratory: Denies cough or shortness of breath. [] Or hemoptysis Cardiovascular: Denies chest pain or edema. [] GI: Denies abdominal pain, vomiting, melena, hematochezia, hematemesis : Denies dysuria. [] Or increased urinary frequency or urgency, no hematuria Musculoskeletal: Denies joint pain or swelling Integument: Denies rash. [] Neurologic: Denies headache, focal weakness or sensory changes. [] Or neck stiffness Endocrine: Denies polyuria or polydipsia. [] Lymphatic: Denies swollen glands. [] Psychiatric: Denies depression or anxiety. [] Heart Score: Risk Factors: Risk Factors: DM, Current or recent (<one month) smoker, HTN, HLP, family history of CAD, obesity. Risk Scores: Score 0 - 3: 2.5% MACE over next 6 weeks - Discharge Home Score 4 - 6: 20.3% MACE over next 6 weeks - Admit for Clinical Observation Score 7 - 10: 72.7% MACE over next 6 weeks - Early Invasive Strategies Current Medications: Current Medications Medications (Trade) Dose Ordered Sig/Clarissa Start Time Stop Time Status Last Admin Dose Admin Hydromorphone HCl (Dilaudid) 0.5 mg PRN Q15MIN PRN 02/23/20 19:30 02/24/20 19:29 Prochlorperazine Edisylate (Compazine) 10 mg 1X ONCE 02/23/20 19:30 02/23/20 19:31 Sodium Chloride 1,000 ml @ 1,000 mls/hr Q1H 02/23/20 19:17 02/23/20 20:16 Tamsulosin HCl (Flomax) 0.4 mg 1X ONCE 02/23/20 19:30 02/23/20 19:31 Allergies: Allergies: Allergies Coded Allergies Type Severity Reaction Last Updated Verified No Known Drug Allergies 08/25/17 No Physical Exam: PE: Constitutional: Well developed, well nourished, no acute distress, non-toxic appearance. [] HENT: Normocephalic, atraumatic, Eyes: EOMI, conjunctiva normal, no discharge. [] Neck: Normal range of motion, supple, no stridor. [] Cardiovascular: tachycardic on arrival, no murmur [] Lungs & Thorax: Bilateral breath sounds clear to auscultation [] Abdomen: Bowel sounds normal, soft, luq ttp, no masses, no pulsatile masses. [] Skin: Warm, dry, no erythema, no rash. [] Back: No tenderness, left CVA tenderness. [] Extremities: No tenderness, no cyanosis, no clubbing, ROM intact, no edema. [] Neurologic: Alert and oriented X 3, normal motor function, normal sensory function, no focal deficits noted. [] Psychologic: Affect normal, judgement normal, mood normal. [] Current Patient Data: Labs: Laboratory Tests Test 02/23/20 19:14 POC Urine HCG, Qualitative Hcg negative (Negative) EKG: EKG: [] Radiology/Procedures: Radiology/Procedures: []IMAGING REPORT Signed PATIENT: GLENROY TEE ACCOUNT: [id number] : 1980 LOCATION: ER AGE: 39 SEX: F EXAM STATUS: REG ER ORD. PHYSICIAN: HAJA HUTTON DO REASON: assess for hydro, has left ureterolithiasis on ct 02/20 PROCEDURE: RENAL COMPLETE BILATERAL Renal ultrasound dated 02/23/2020. Comparison made to CT dated 02/21/2020. Clinical data indication: Follow-up hydronephrosis. FINDINGS: Right kidney measures 13.0 cm in length. Left kidney measures 11.9 cm in length. No hydronephrosis. The previously described left-sided pelvocaliectasis has resolved. No definite renal stone is demonstrated by ultrasound. No apparent mass. Neither ureteral jet is visualized. The urinary bladder is nondistended and not well evaluated. IMPRESSION: 1. Interval resolution of left-sided hydronephrosis. 2. Previously described renal stones are not well visualized by ultrasound. 3. Neither ureteral jet is visualized, however this could be related to incomplete bladder distention. Electronically signed by: Varinder Al MD (02/23/2020 8:14 PM) [facility] [place] DICTATED and SIGNED BY: VARINDER AL MD DATE: 02/23/202013 Course & Med Decision Making: Course & Med Decision Making Pertinent Labs and Imaging studies reviewed. (See chart for details) Concern for renal colic-pain managed with one dose of analgesia. Urinalysis with moderate bacteria few squamous cells, mucus, no nitrates or leukocyte esterase, no RBCs or blood. Ultrasound shows left interval resolution of hydronephrosis. Labs show no leukocytosis or kidney injury. Patient afebrile. Patient has urology follow-up on Thursday. Will be given strict ED return precautions for nausea, vomiting, fever, flulike symptoms or worsening abdominal or back pain. Will prescribe 3 days worth of Percocet-patient educated on high risk of addicti on after 5 days of consecutive use. Encouraged urgent outpatient follow-up with PMD and urology. Life-threatening processes were considered but are low suspicion at this time, given history and physical exam. Pt was educated on all prescription medications and adverse effects. All patient's questions were answered and pt was stable at time of discharge. Life/limb-threatening differential includes but is not limited to, aortic dissection, aortic aneurysm, acute coronary syndrome, surgical abdomen (append icitis, cholecystitis, ischemic bowel, strangulated hernia, etc), bowel obstruction or volvulus, bladder outlet obstruction, gastrointestinal bleeding, inflammatory bowel disease, peptic ulcer disease, sepsis, diverticular disease, ureterolithiasis, nephrolithiasis, ovarian or testicular torsion, ectopic , vaginal hemorrhage, or genitourinary infection. I spoken with the patient and her caregivers. I explained the patient's condition, diagnoses and treatment plan based on the information available to me at this time. I have answered the patient and her caregiver's questions and addressed any concerns. The patient and her caregivers have a good understanding of patient's diagnosis, condition and treatment plan as can be expected at this point. Vital signs have been stable. Patient's condition is stable and appropriate for discharge from the emergency department. Patient will pursue further outpatient evaluation with primary care physician or other designated or consulting physician as outlined in the discharge instructions. The patient and/or caregivers are agreeable to this plan of care and follow-up instructions have been explained in detail. The patient and/or caregivers have received these instructions in written form and have expressed an understanding of the discharge instructions. The patient and/or caregivers are aware that any significant change of condition or worsening of symptoms should prompt immediate return to this or the closest emergency department or call to 911. Obi Disclaimer: Obi Disclaimer: This electronic medical record was generated, in whole or in part, using a voice recognition dictation system. Departure Departure Impression: Primary Impression: Renal colic on left side Disposition: 01 DC HOME SELF CARE/HOMELESS Condition: STABLE Referrals: OLE BOUCHER MD (PCP) Patient Instructions: Kidney Stones Additional Instructions: FOLLOW UP WITH UROLOGY: [facility] [address] [place] [address] appointments: [phone] EMERGENCY DEPARTMENT GENERAL DISCHARGE INSTRUCTIONS Thank you for coming to Emergency Department (ED) today and trusting us with you care. We trust that you had a positive experience in our Emergency Department. If you wish to speak to the department management, you may call the Director at [phone]. YOUR FOLLOW UP INSTRUCTIONS ARE FOLLOWS: 1. Do you have a private Doctor? If you do not have a private doctor, please ask for a resource list of physicians or clinics that may be able to assist you with follow up care. 2. The Emergency Physicain has interpreted your x-rays. The X-Ray specialist will also review them. If there is a change in the findings, you will be notified in 48 hours when at all possible. 3. A lab test or culture has been done, your results will be reviewed and you will be notified if you need a change in treatment. ADDITIONAL INSTRUCTIONS AND INFORMATION: 1. Your care today has been supervised by a physician who is specially trained in emergency care. Many problems require more than one evaluation for a complete diagnosis and treatment. We recommend that you schedule your follow up appointment as recommended to ensure complete treatment of you illness or injury. If you are unable to obtain follow up care and continue to have a problem, or if your condition worsens, we recommend that you return to the ED. 2. We are not able to safely determine your condition over the phone nor are we able to give sound medical advice over the phone. For these safety reasons, if you call for medical advice we will ask you to come to the ED for further evaluation. 3. If you have any questions regarding these discharge instructions please call the ED at [phone]. SAFETY INFORMATION: In the interest of safety, wellness, and injury prevention; we encourage you to wear your sealbelt, if you smoke; quite smoking, and we encourage family to use a protective helmet for bicycling and other sporting events that present an increased risk for head injury. IF YOUR SYMPTOMS WORSEN OR NEW SYMPTOMS DEVELOP, OR YOU HAVE CONCERNS ABOUT YOUR CONDITION; OR IF YOUR CONDITION WORSENS WHILE YOU ARE WAITING FOR YOUR FOLLOW UP APPOINTMENT; EITHER CONTACT YOUR PRIMARY CARE DOCTOR, THE PHYSICIAN WHOSE NAME AND NUMBER YOU WERE GIVEN, OR RETURN TO THE ED IMMEDIATELY. Scripts Oxycodone/Apap 5-325 (PERCOCET 5-325 MG TABLET ) 1 Each Tablet 1 TAB PO PRN Q6HRS PRN for PAIN, #12 TAB 0 Refills Prov: HAJA HUTTON DO 02/23/20 HAJA HUTTON DO Feb 23, 2020 19:28
[2020-02-23] MEDS ORDERED: TAMSULOSIN 0.4 MG CAP.ER.24H. PO ONE (19:30)
[2020-02-23] MEDS ORDERED: PROCHLORPERAZINE 10 MG/2 ML VIAL. IV ONE (19:30)
[2020-02-23 19:34] LABS: BACTERIA,URINE MODERATE /HPF (0-FEW)
[2020-02-23] MEDS: HYDROmorphone 2 MG/ML VIAL IV/SQ PRN ×4 (20:07→21:54)
--- NOTE | 2020-02-23 20:17 | RAD ---
Renal ultrasound dated 02/23/2020. Comparison made to CT dated 02/21/2020. Clinical data indication: Follow-up hydronephrosis. FINDINGS: Right kidney measures 13.0 cm in length. Left kidney measures 11.9 cm in length. No hydronephrosis. The previously described left-sided pelvocaliectasis has resolved. No definite renal stone is demonstrated by ultrasound. No apparent mass. Neither ureteral jet is visualized. The urinary bladder is nondistended and not well evaluated. IMPRESSION: 1. Interval resolution of left-sided hydronephrosis. 2. Previously described renal stones are not well visualized by ultrasound. 3. Neither ureteral jet is visualized, however this could be related to incomplete bladder distention. Electronically signed by: Varinder Al MD (02/23/2020 8:14 PM) [facility]
[2020-02-23 20:18] LABS: BASO # 0.1 x10^3/uL (0.0-0.2); BASO % 1 % (0-3); EOS # 0.4 x10^3/uL (0.0-0.7); EOS % 5 % (0-3); HEMATOCRIT 38.6 % (36.0-47.0); HEMOGLOBIN 13.2 g/dL (12.0-15.5); LYMPH # 3.5 x10^3/uL (1.0-4.8); LYMPH % 48 % (24-48); MEAN CORPUSCULAR HEMOGLOBIN 32 pg (25-35); MEAN CORPUSCULAR HGB CONC 34 g/dL (31-37); MEAN CORPUSCULAR VOLUME 95 fL (79-100); MONO # 0.5 x10^3/uL (0.0-1.1); MONO % 7 % (0-9); NEUT # 2.9 x10^3/uL (1.8-7.7); NEUT % 39 % (31-73); PLATELET COUNT 332 x10^3/uL (140-400); RED BLOOD COUNT 4.08 x10^6/uL (3.50-5.40); WHITE BLOOD COUNT 7.3 x10^3/uL (4.0-11.0)
[2020-02-23 20:27] LABS: CALCIUM 8.5 mg/dL (8.5-10.1); CREATININE 0.6 mg/dL (0.6-1.0); GFR 111.9; POTASSIUM 4.2 mmol/L (3.5-5.1)
[2020-02-23 20:33] LABS: ALBUMIN 3.2 g/dL (3.4-5.0); ALBUMIN/GLOBULIN RATIO 0.9 (1.0-1.7); TOTAL BILIRUBIN 0.1 mg/dL (0.2-1.0); TOTAL PROTEIN 6.6 g/dL (6.4-8.2)
[2020-02-23] MEDS ORDERED: OXYC1TAB15 PO ×2 (21:25)
[2020-02-23 22:10] VITALS: BP 107/72
== END 2020-02-23 22:13 | disposition home or self-care (01) ==
LOC: ER 18:55
DX: N23 Unspecified renal colic (principal); R11.0 Nausea; R19.7 Diarrhea, unspecified; F41.9 Anxiety disorder, unspecified; F32.9 Major depressive disorder, single episode, unspecified; G43.909 Migraine, unspecified, not intractable, without status migrainosus; Z90.710 Acquired absence of both cervix and uterus; Z98.890 Other specified postprocedural states; Z90.89 Acquired absence of other organs
CPT/HCPCS: 36415; 76770; 80053; 81001; 81025; 82550; 83690; 85025; 87086; 96361; 96374; 96375; 96376; 99285; J0780; J1170; J7030

== ENCOUNTER 2020-02-28 18:11 | Emergency (ER) | payer MEDICAID ==
[~2020-02-28] VITALS: Ht 165.1 cm; Wt 90.0 kg
[2020-02-28] MEDS ORDERED: HYDROcodone/APAP 5/325MG 1 TAB TABLET PO ONE (20:15)
--- NOTE | 2020-02-28 20:23 | RAD ---
KNEE LEFT 3V History: Reason: left knee pain after a fall today / Spl. Instructions: / History: Technique: 3 views left knee. Comparison: None. Findings: Normal alignment. No fracture. No significant knee joint effusion. Soft tissues unremarkable. Impression: 1. No acute osseous abnormality. Electronically signed by: Luciano Stubbs DO (02/28/2020 8:20 PM) [facility]
--- NOTE | 2020-02-28 20:24 | RAD ---
FOOT LEFT 3V History: Reason: fell, left foot pain / Spl. Instructions: / History: Technique: 3 views left foot. Comparison: None. Findings: Normal alignment. No fracture. Soft tissues unremarkable. Impression: 1. No acute osseous abnormality. Electronically signed by: Luciano Stubbs DO (02/28/2020 8:21 PM) [facility]
--- NOTE | 2020-02-28 20:47 | PHYS DOC ---
Past Medical History Past Medical History: Anxiety, Depression, Kidney Stone, Migraines Additional Past Medical Histor: ptsd,herpes symplex,hydroureternephosis,angio edema Past Surgical History: Hysterectomy, Tonsillectomy Additional Past Surgical Histo: lithotripsy, RLE fx repair x 3 Smoking Status: Never Smoker Alcohol Use: Occasionally Drug Use: None General Adult EDM: Chief Complaint: FOOT INJURY PAIN HPI: HPI: Patient is a 39 year old female who presented to ER for evaluation of left foot pain after she missed a step and twisted her left foot. Patient also complains of pain on left knee. Patient said it is painful to put weight on her left foot. No other injury. Review of Systems: Review of Systems: Constitutional: Denies fever or chills. [] Eyes: Denies change in visual acuity. [] HENT: Denies nasal congestion or sore throat. [] Respiratory: Denies cough or shortness of breath. [] Cardiovascular: Denies chest pain or edema. [] GI: Denies abdominal pain, nausea, vomiting, bloody stools or diarrhea. [] : Denies dysuria. [] Musculoskeletal: Denies back pain, positive for left foot pain and left knee pain Integument: Denies rash. [] Neurologic: Denies headache, focal weakness or sensory changes. [] Endocrine: Denies polyuria or polydipsia. [] Lymphatic: Denies swollen glands. [] Psychiatric: Denies depression or anxiety. [] Heart Score: Risk Factors: Risk Factors: DM, Current or recent (<one month) smoker, HTN, HLP, family history of CAD, obesity. Risk Scores: Score 0 - 3: 2.5% MACE over next 6 weeks - Discharge Home Score 4 - 6: 20.3% MACE over next 6 weeks - Admit for Clinical Observation Score 7 - 10: 72.7% MACE over next 6 weeks - Early Invasive Strategies Current Medications: Current Medications Medications (Trade) Dose Ordered Sig/Clarissa Start Time Stop Time Status Last Admin Dose Admin Acetaminophen/ Hydrocodone Bitart (Lortab 5/325) 1 tab 1X ONCE 02/28/20 20:15 02/28/20 20:25 DC 02/28/20 20:18 1 TAB Allergies: Allergies: Allergies Coded Allergies Type Severity Reaction Last Updated Verified No Known Drug Allergies 08/25/17 No Physical Exam: PE: Constitutional: Well developed, well nourished, no acute distress, non-toxic appearance. [] HENT: Normocephalic, atraumatic, bilateral external ears normal, oropharynx moist, no oral exudates, nose normal. [] Eyes: PERRLA, EOMI, conjunctiva normal, no discharge. [] Neck: Normal range of motion, no tenderness, supple, no stridor. [] Cardiovascular:Heart rate regular rhythm, no murmur [] Lungs & Thorax: Bilateral breath sounds clear to auscultation [] Abdomen: Bowel sounds normal, soft, no tenderness, no masses, no pulsatile masses. [] Skin: Warm, dry, no erythema, no rash. [] Back: No tenderness, no CVA tenderness. [] Extremities: Left knee is stable, tender to palpation at the lateral meniscus area, Left ankle is stable, no swelling, left midfoot is tender to palpation.. no swelling. Neurologic: Alert and oriented X 3, normal motor function, normal sensory function, no focal deficits noted. [] Psychologic: Affect normal, judgement normal, mood normal. [] Current Patient Data: Vital Signs: Vital Signs Date Time Temp Pulse Resp B/P (MAP) Pulse Ox O2 Delivery O2 Flow Rate FiO2 02/28/20 20:18 16 98 Room Air 02/28/20 19:12 98.7 110 137/87 (104) 98.7 EKG: EKG: [] Radiology/Procedures: Radiology/Procedures: [][facility] [address] [place], [place] [id number] IMAGING REPORT Signed PATIENT: GLENROY TEE ACCOUNT: [id number] : 1980 LOCATION: ER AGE: 39 SEX: F EXAM STATUS: REG ER ORD. PHYSICIAN: CHAU BLEDSOE DO REASON: fell, left foot pain PROCEDURE: FOOT LEFT 3V FOOT LEFT 3V History: Reason: fell, left foot pain / Spl. Instructions: / History: Technique: 3 views left foot. Comparison: None. Findings: Normal alignment. No fracture. Soft tissues unremarkable. Impression: 1. No acute osseous abnormality. Electronically signed by: Luciano Stubbs DO (02/28/2020 8:21 PM) [facility] DICTATED and SIGNED BY: LUCIANO STUBBS DO DATE: 02/28/202020 [facility] [address] [place] [address] IMAGING REPORT Signed PATIENT: GLENROY TEE ACCOUNT: [id number] : 1980 LOCATION: ER AGE: 39 SEX: F EXAM STATUS: REG ER ORD. PHYSICIAN: CHAU BLEDSOE DO REASON: left knee pain after a fall today PROCEDURE: KNEE LEFT 3V KNEE LEFT 3V History: Reason: left knee pain after a fall today / Spl. Instructions: / History: Technique: 3 views left knee. Comparison: None. Findings: Normal alignment. No fracture. No significant knee joint effusion. Soft tissues unremarkable. Impression: 1. No acute osseous abnormality. Electronically signed by: Luciano Stubbs DO (02/28/2020 8:20 PM) [facility] DICTATED and SIGNED BY: LUCIANO STUBBS DO DATE: 02/28/202019 Course & Med Decision Making: Course & Med Decision Making Pertinent Labs and Imaging studies reviewed. (See chart for details) Patient is a 39-year-old female who was evaluated in the ER due to left foot and left knee pain. X-ray did not show any acute problem. Patient was placed in a walking boot on the left lower extremity. Patient will be discharged home she will follow up with orthopedic for outpatient evaluation. Patient is amenable to plan of care. Obi Disclaimer: Obi Disclaimer: This electronic medical record was generated, in whole or in part, using a voice recognition dictation system. Departure Departure Impression: Primary Impression: Sprain of left foot Disposition: 01 DC HOME SELF CARE/HOMELESS Condition: IMPROVED Referrals: OLE BARRERA MD (PCP) SARAN MANUEL II, MD please call this orthopedic surgeon for outpatient follow up. Patient Instructions: Foot Sprain Scripts Tramadol Hcl (TRAMADOL HCL) 50 Mg Tablet 50 MG PO Q6HRS PRN for PAIN, #20 TAB Prov: CHAU BLEDSOE DO 02/28/20 CHAU BLEDSOE DO Feb 28, 2020 20:47
[2020-02-28] MEDS ORDERED: TRAM50TA PO (21:09)
[2020-02-28 21:15] VITALS: BP 136/89
== END 2020-02-28 21:30 | disposition home or self-care (01) ==
LOC: ER 18:11
DX: S93.602A Unspecified sprain of left foot, initial encounter (principal); M25.562 Pain in left knee; G43.909 Migraine, unspecified, not intractable, without status migrainosus; X50.9XXA Other and unspecified overexertion or strenuous movements or postures, initial encounter; Y93.89 Activity, other specified; Y92.89 Other specified places as the place of occurrence of the external cause; Y99.8 Other external cause status
CPT/HCPCS: 73562; 73630; 99285-25

== ENCOUNTER 2020-04-05 08:12 | Emergency (ER) | payer MEDICAID ==
[~2020-04-05] VITALS: Ht 165.1 cm; Wt 88.1 kg
[2020-04-05] MEDS ORDERED: fentaNYL PF VIAL 100 MCG/2 ML VIAL IVP ONE (08:30)
[2020-04-05] MEDS ORDERED: IV NORMAL SALINE 1000ML BAG 1,000 ML IV ONE (08:30)
[2020-04-05] MEDS ORDERED: ONDANSETRON PF 4 MG/2 ML VIAL. IVP ONE (08:30)
--- NOTE | 2020-04-05 08:33 | ED.ADGEN ---
Past Medical History Past Medical History: Anxiety, Depression, Kidney Stone, Migraines Additional Past Medical Histor: ptsd,herpes symplex,hydroureternephosis,angio edema Past Surgical History: Hysterectomy, Tonsillectomy Additional Past Surgical Histo: lithotripsy, RLE fx repair x 3 Smoking Status: Never Smoker Alcohol Use: Occasionally Drug Use: None General Adult EDM: Chief Complaint: FLANK PAIN HPI: HPI: Patient is a 39 year old female coming in for left flank pain. Patient states she is a significant history of kidney stones last one a month and a half ago. Lithotripsy before. Patient states the pain has been getting gradually worse over the past day she says she has had difficulty with urination as well, has not noticed any dysuria or hematuria. Has had nausea but no vomiting, no diarrhea. Review of Systems: Review of Systems: Constitutional: Denies fever or chills. [] Eyes: Denies change in visual acuity. [] HENT: Denies nasal congestion or sore throat. [] Respiratory: Denies cough or shortness of breath. [] Cardiovascular: Denies chest pain or edema. [] GI: Denies abdominal pain, nausea, vomiting, bloody stools or diarrhea. [] : Denies dysuria. [] Denies hematuria, but has had difficulty urinating Musculoskeletal: Denies back pain or joint pain. [] Left flank pain Integument: Denies rash. [] Neurologic: Denies headache, focal weakness or sensory changes. [] Endocrine: Denies polyuria or polydipsia. [] Lymphatic: Denies swollen glands. [] Psychiatric: Denies depression or anxiety. [] Current Medications: Current Medications Medications (Trade) Dose Ordered Sig/Clarissa Start Time Stop Time Status Last Admin Dose Admin Fentanyl Citrate (Fentanyl 2ml Vial) 75 mcg 1X ONCE 04/05/20 08:30 04/05/20 08:31 DC 04/05/20 08:55 75 MCG Ketorolac Tromethamine (Toradol 15mg Vial) 15 mg 1X ONCE 04/05/20 10:15 04/05/20 10:16 DC Ondansetron HCl (Zofran) 4 mg 1X ONCE 04/05/20 08:30 04/05/20 08:31 DC 04/05/20 08:55 4 MG Sodium Chloride 1,000 ml @ 1,000 mls/hr 1X ONCE 04/05/20 08:30 04/05/20 09:29 DC 04/05/20 08:54 1,000 MLS/HR Tamsulosin HCl (Flomax) 0.4 mg 1X ONCE 04/05/20 10:15 04/05/20 10:16 DC 04/05/20 10:10 0.4 MG Allergies: Allergies: Allergies Coded Allergies Type Severity Reaction Last Updated Verified No Known Drug Allergies 08/25/17 No Physical Exam: PE: Constitutional: Well developed, well nourished, moderate distress, non-toxic appearance. [] HENT: Normocephalic, atraumatic, bilateral external ears normal, oropharynx moist, no oral exudates, nose normal. [] Eyes: PERRLA, EOMI, conjunctiva normal, no discharge. [] Neck: Normal range of motion, no tenderness, supple, no stridor. [] Cardiovascular:Heart rate regular rhythm, no murmur [] Lungs & Thorax: Bilateral breath sounds clear to auscultation [] Abdomen: Bowel sounds normal, soft, no tenderness, no masses, no pulsatile masses. [] Skin: Warm, dry, no erythema, no rash. [] Back: No tenderness, left CVA tenderness Extremities: No tenderness, no cyanosis, no clubbing, ROM intact, no edema. [] Neurologic: Alert and oriented X 3, normal motor function, normal sensory functi on, no focal deficits noted. [] Psychologic: Affect normal, judgement normal, mood normal. [] Current Patient Data: Labs: Laboratory Tests Test 04/05/20 08:25 04/05/20 08:50 Urine Collection Type Void Urine Color Yellow Urine Clarity Clear Urine pH 6.0 (<5.0-8.0) Urine Specific Newell 1.025 (1.000-1.030) Urine Protein 30 mg/dL (NEG-TRACE) Urine Glucose (UA) Negative mg/dL (NEG) Urine Ketones (Stick) Negative mg/dL (NEG) Urine Blood Moderate (NEG) Urine Nitrite Negative (NEG) Urine Bilirubin Negative (NEG) Urine Urobilinogen Dipstick 0.2 mg/dL (0.2 mg/dL) Urine Leukocyte Esterase Negative (NEG) Urine RBC 11-20 /HPF (0-2) Urine WBC 1-4 /HPF (0-4) Urine Squamous Epithelial Cells Mod /LPF Urine Bacteria Few /HPF (0-FEW) Urine Hyaline Casts Occasional /HPF Urine Mucus Mod /LPF Urine Sperm Present /HPF Sodium Level 138 mmol/L (136-145) Potassium Level 4.0 mmol/L (3.5-5.1) Chloride Level 103 mmol/L (98-107) Carbon Dioxide Level 27 mmol/L (21-32) Anion Gap 8 (6-14) Blood Urea Nitrogen 9 mg/dL (7-20) Creatinine 0.7 mg/dL (0.6-1.0) Estimated GFR (Cockcroft-Gault) 93.6 BUN/Creatinine Ratio 13 (6-20) Glucose Level 104 mg/dL (70-99) H Calcium Level 9.0 mg/dL (8.5-10.1) Total Bilirubin 0.2 mg/dL (0.2-1.0) Aspartate Amino Transferase (AST) 17 U/L (15-37) Alanine Aminotransferase (ALT) 21 U/L (14-59) Alkaline Phosphatase 61 U/L (46-116) Creatine Kinase 49 U/L (26-192) Total Protein 7.2 g/dL (6.4-8.2) Albumin 3.7 g/dL (3.4-5.0) Albumin/Globulin Ratio 1.1 (1.0-1.7) Laboratory Tests 04/05/20 08:50 Vital Signs: Vital Signs Date Time Temp Pulse Resp B/P (MAP) Pulse Ox O2 Delivery O2 Flow Rate FiO2 04/05/20 10:06 92 16 119/65 (83) 100 Room Air 04/05/20 08:29 98.5 98.5 EKG: EKG: [] Heart Score: Risk Factors: Risk Factors: DM, Current or recent (<one month) smoker, HTN, HLP, family history of CAD, obesity. Risk Scores: Score 0 - 3: 2.5% MACE over next 6 weeks - Discharge Home Score 4 - 6: 20.3% MACE over next 6 weeks - Admit for Clinical Observation Score 7 - 10: 72.7% MACE over next 6 weeks - Early Invasive Strategies Radiology/Procedures: Radiology/Procedures: COMPARISON: February 21, 2020 TECHNIQUE: Axial CT images obtained through the abdomen and pelvis without contrast. One or more of the following individualized dose reduction techniques were utilized for this examination: 1. Automated exposure control; 2. Adjustment of the mA and/or kV according to patient size; 3. Use of iterative reconstruction technique. FINDINGS: Mild subpleural nodularity at the lung bases. Abdominal aorta not aneurysmal. Small fat-containing umbilical hernia. No intrahepatic bile duct dilation. No peripancreatic fluid collection. Spleen unremarkable. Bilateral nonobstructive renal stones. Left-sided moderate hydronephrosis and hydroureter with 4 mm left distal ureter stone again seen. Urinary bladder has minimal urine within it at time of exam. Colonic diverticulosis. No periappendiceal inflammatory changes. Degenerative changes of the spine. IMPRESSION: * Moderate left-sided hydronephrosis and hydroureter with distal ureter stone. [] Course & Med Decision Making: Course & Med Decision Making Pertinent Labs and Imaging studies reviewed. (See chart for details) Moderate hydronephrosis with no acute kidney injury. Given return precautions. Advised her to follow-up with her urologist [] Obi Disclaimer: Obi Disclaimer: This electronic medical record was generated, in whole or in part, using a voice recognition dictation system. Departure Departure Impression: Primary Impression: Kidney stone on left side Disposition: 01 DC HOME SELF CARE/HOMELESS Condition: STABLE Referrals: OLE BARRERA MD (PCP) Patient Instructions: Diet for Kidney Stones Scripts Ondansetron (ONDANSETRON ODT) 4 Mg Tab.rapdis 4 MG PO BID PRN for NAUSEA/VOMITING for 3 Days, #6 TAB Prov: CARMEN HADLEY MD 04/05/20 Ibuprofen (IBUPROFEN) 800 Mg Tablet 800 MG PO PRN Q8HRS PRN for INFLAMMATION for 10 Days, #30 TAB Prov: CARMEN HADLEY MD 04/05/20 Oxycodone/Apap 5-325 (PERCOCET 5-325 MG TABLET ) 1 Each Tablet 1 TAB PO PRN Q6HRS PRN for PAIN for 5 Days, #15 TAB 0 Refills Prov: CARMEN HADLEY MD 04/05/20 Tamsulosin Hcl (FLOMAX) 0.4 Mg Cap.er.24h 1 CAP PO DAILY for 7 Days, #7 CAP 11 Refills Prov: CARMEN HADLEY MD 04/05/20 CARMEN HADLEY MD Apr 05, 2020 08:33
[2020-04-05 08:54] LABS: BILIRUBIN,URINE NEGATIVE (NEG); CLARITY,URINE CLEAR; COLOR,URINE YELLOW; NITRITE,URINE NEGATIVE (NEG); PROTEIN,URINE 30 mg/dL (NEG-TRACE); UROBILINOGEN,URINE 0.2 mg/dL (0.2 mg/dL)
[2020-04-05 09:07] LABS: BACTERIA,URINE FEW /HPF (0-FEW); HYALINE CASTS, URINE OCCASIONAL /HPF
[2020-04-05 09:09] LABS: SPERM,URINE PRESENT /HPF
[2020-04-05 09:25] LABS: CREATININE 0.7 mg/dL (0.6-1.0); GFR 93.6
[2020-04-05 09:31] LABS: ALBUMIN 3.7 g/dL (3.4-5.0); ALBUMIN/GLOBULIN RATIO 1.1 (1.0-1.7); TOTAL BILIRUBIN 0.2 mg/dL (0.2-1.0); TOTAL PROTEIN 7.2 g/dL (6.4-8.2)
--- NOTE | 2020-04-05 09:37 | RAD ---
INDICATION: Reason: left flank ,kidney stone protocol / Spl. Instructions: / History: . COMPARISON: February 21, 2020 TECHNIQUE: Axial CT images obtained through the abdomen and pelvis without contrast. One or more of the following individualized dose reduction techniques were utilized for this examination: 1. Automated exposure control; 2. Adjustment of the mA and/or kV according to patient size; 3. Use of iterative reconstruction technique. FINDINGS: Mild subpleural nodularity at the lung bases. Abdominal aorta not aneurysmal. Small fat-containing umbilical hernia. No intrahepatic bile duct dilation. No peripancreatic fluid collection. Spleen unremarkable. Bilateral nonobstructive renal stones. Left-sided moderate hydronephrosis and hydroureter with 4 mm left distal ureter stone again seen. Urinary bladder has minimal urine within it at time of exam. Colonic diverticulosis. No periappendiceal inflammatory changes. Degenerative changes of the spine. IMPRESSION: * Moderate left-sided hydronephrosis and hydroureter with distal ureter stone. Electronically signed by: Iban Pastor MD (04/05/2020 9:34 AM) [id number]
[2020-04-05 10:06] VITALS: BP 119/65
[2020-04-05] MEDS ORDERED: KETOROLAC 15 MG/ML VIAL. ONE (10:09)
[2020-04-05] MEDS ORDERED: OXYC1TAB15 PO (10:10)
[2020-04-05] MEDS ORDERED: TAMS0.4C97 PO (10:10)
[2020-04-05] MEDS ORDERED: IBUP-1060 PO (10:11)
[2020-04-05] MEDS ORDERED: ONDA4TAB12 PO (10:11)
[2020-04-05] MEDS ORDERED: KETOROLAC 15 MG/ML VIAL. IVP ONE ×2 (10:15)
[2020-04-05] MEDS ORDERED: TAMSULOSIN 0.4 MG CAP.ER.24H. PO ONE (10:15)
== END 2020-04-05 10:27 | disposition home or self-care (01) ==
LOC: ER 08:12
DX: N13.2 Hydronephrosis with renal and ureteral calculous obstruction (principal); K57.30 Diverticulosis of large intestine without perforation or abscess without bleeding; G43.909 Migraine, unspecified, not intractable, without status migrainosus; F43.10 Post-traumatic stress disorder, unspecified; Z90.710 Acquired absence of both cervix and uterus
CPT/HCPCS: 36415; 74176; 80053; 81001; 82550; 96361; 96374; 96375; 99284; J1885; J2405; J3010; J7030; 99285-25

== ENCOUNTER 2020-04-23 20:06 | Emergency (ER) | payer MEDICAID ==
[~2020-04-23 20:06] MED LIST changes: +IBUP-1060 PO
== END 2020-04-23 20:26 | disposition left against medical advice (07) ==
LOC: ER 20:06
DX: R10.9 Unspecified abdominal pain (principal); Z53.21 Procedure and treatment not carried out due to patient leaving prior to being seen by health care provider

== ENCOUNTER 2020-04-25 23:35 | Emergency (ER) | payer MEDICAID ==
[~2020-04-25] VITALS: Ht 165.1 cm; Wt 90.0 kg
--- NOTE | 2020-04-26 00:59 | PHYS DOC ---
Past Medical History Past Medical History: Anxiety, Depression, Kidney Stone, Migraines Additional Past Medical Histor: ptsd,herpes symplex,hydroureternephosis,angio edema Past Surgical History: Hysterectomy, Tonsillectomy Additional Past Surgical Histo: lithotripsy, RLE fx repair x 3 Smoking Status: Never Smoker Alcohol Use: Rarely Drug Use: None General Adult EDM: Chief Complaint: ABDOMINAL PAIN HPI: HPI: Patient is a 39 year old female who presents with a 2-day history of left lower quadrant pain. Patient describes sharp stabbing left lower quadrant pain that radiates to her back. Pain is worse with palpation and movement. Patient has had a recent diagnosis of a distal left ureteral stone in March and is wondering if this is what is causing her symptoms. Patient has had episodes of nausea vomiting but denies fever. Patient had several episodes of diarrhea that is since resolved. Review of Systems: Review of Systems: Constitutional: Denies fever or chills. [] Eyes: Denies change in visual acuity. [] HENT: Denies nasal congestion or sore throat. [] Respiratory: Denies cough or shortness of breath. [] Cardiovascular: Denies chest pain or edema. [] GI: Complains abdominal pain with nausea vomiting and has had some diarrhea : Denies dysuria. [] Musculoskeletal: Complains of left leg pain but no joint pain Integument: Denies rash. [] Neurologic: Denies headache, focal weakness or sensory changes. [] Endocrine: Denies polyuria or polydipsia. [] Lymphatic: Denies swollen glands. [] Psychiatric: Denies depression or anxiety. [] Heart Score: Risk Factors: Risk Factors: DM, Current or recent (<one month) smoker, HTN, HLP, family history of CAD, obesity. Risk Scores: Score 0 - 3: 2.5% MACE over next 6 weeks - Discharge Home Score 4 - 6: 20.3% MACE over next 6 weeks - Admit for Clinical Observation Score 7 - 10: 72.7% MACE over next 6 weeks - Early Invasive Strategies Allergies: Allergies: Allergies Coded Allergies Type Severity Reaction Last Updated Verified No Known Drug Allergies 08/25/17 No Physical Exam: PE: Constitutional: Well developed, well nourished, appears in pain, non-toxic appearance. [] HENT: Normocephalic, atraumatic, bilateral external ears normal, no trismus nose normal. [] Eyes: PERRLA, EOMI, conjunctiva normal, no discharge. [] Neck: Normal range of motion, no tenderness, supple, no stridor. [] Cardiovascular: Tachycardia, peripheral pulse intact, cap refills less than 2 seconds Lungs & Thorax: Bilateral breath sounds clear, no respiratory distress Abdomen: Soft with moderate left lower quadrant tenderness without guarding or rebound, no masses, no pulsatile masses. [] Skin: Warm, dry, no erythema, no rash. [] Back: No tenderness, no CVA tenderness. [] Extremities: No tenderness, no cyanosis, no clubbing, ROM intact, no edema. [] Neurologic: Alert and oriented X 3, normal motor function, normal sensory function, no focal deficits noted. [] Psychologic: Affect normal, judgement normal, mood normal. [] Current Patient Data: Labs: Laboratory Tests Test 04/25/20 23:36 04/26/20 00:51 04/26/20 01:00 Urine Collection Type Unknown Urine Color Yellow Urine Clarity Clear Urine pH 7.0 Urine Specific [place] 1.020 Urine Protein Negative mg/dL Urine Glucose (UA) Negative mg/dL Urine Ketones (Stick) Negative mg/dL Urine Blood Negative Urine Nitrite Negative Urine Bilirubin Negative Urine Urobilinogen Dipstick 0.2 mg/dL Urine Leukocyte Esterase Small Urine RBC Occ /HPF Urine WBC 1-4 /HPF Urine Squamous Epithelial Cells Few /LPF Urine Bacteria Few /HPF Urine Mucus Slight /LPF Bedside Urine HCG, Qualitative Hcg negative White Blood Count 13.2 x10^3/uL Red Blood Count 4.26 x10^6/uL Hemoglobin 13.6 g/dL Hematocrit 40.4 % Mean Corpuscular Volume 95 fL Mean Corpuscular Hemoglobin 32 pg Mean Corpuscular Hemoglobin Concent 34 g/dL Red Cell Distribution Width 12.5 % Platelet Count 325 x10^3/uL Neutrophils (%) (Auto) 73 % Lymphocytes (%) (Auto) 19 % Monocytes (%) (Auto) 6 % Eosinophils (%) (Auto) 1 % Basophils (%) (Auto) 1 % Neutrophils # (Auto) 9.6 x10^3/uL Lymphocytes # (Auto) 2.5 x10^3/uL Monocytes # (Auto) 0.8 x10^3/uL Eosinophils # (Auto) 0.2 x10^3/uL Basophils # (Auto) 0.1 x10^3/uL Maternal Serum HCG Beta Subunit < 1 mIU/mL Sodium Level 141 mmol/L Potassium Level 4.2 mmol/L Chloride Level 103 mmol/L Carbon Dioxide Level 29 mmol/L Anion Gap 9 Blood Urea Nitrogen 11 mg/dL Creatinine 0.8 mg/dL Estimated GFR (Cockcroft-Gault) 80.3 BUN/Creatinine Ratio 14 Glucose Level 109 mg/dL Calcium Level 8.9 mg/dL Total Bilirubin 0.3 mg/dL Aspartate Amino Transf (AST/SGOT) 39 U/L Alanine Aminotransferase (ALT/SGPT) 47 U/L Alkaline Phosphatase 86 U/L Total Protein 7.4 g/dL Albumin 3.3 g/dL Albumin/Globulin Ratio 0.8 Lipase 47 U/L Current Medications Medications (Trade) Dose Ordered Sig/Clarissa Route PRN Reason Start Time Stop Time Status Last Admin Dose Admin Ketorolac Tromethamine (Toradol 15mg Vial) 15 mg 1X ONCE IVP 04/26/20 01:00 04/26/20 01:01 DC 04/26/20 01:23 Ondansetron HCl (Zofran) 4 mg 1X ONCE IVP 04/26/20 01:00 04/26/20 01:01 DC 04/26/20 01:23 Sodium Chloride 1,000 ml @ 1,000 mls/hr 1X ONCE IV 04/26/20 01:00 04/26/20 01:59 DC 04/26/20 01:23 Morphine Sulfate (Morphine Sulfate) 4 mg 1X ONCE IV 04/26/20 01:00 04/26/20 01:01 DC 04/26/20 01:23 Vital Signs: Vital Signs Date Time Temp Pulse Resp B/P (MAP) Pulse Ox O2 Delivery O2 Flow Rate FiO2 04/26/20 00:23 99.5 126 20 120/76 (91) 98 Room Air 99.5 EKG: EKG: [] Radiology/Procedures: Radiology/Procedures: [[facility] [address] [place] [address] IMAGING REPORT Signed PATIENT: GLENROY TEE ACCOUNT: [id number] : 1980 LOCATION: ER AGE: 39 SEX: F EXAM STATUS: REG ER ORD. PHYSICIAN: TRACY MOORE MD REASON: LLQ PAIN, HX OF STONE PROCEDURE: RENAL COMPLETE BILATERAL RENAL COMPLETE BILATERAL History: Reason: LLQ PAIN, HX OF STONE / Spl. Instructions: / History: Comparison: CT April 05, 2020 Procedure: Transabdominal ultrasound images are obtained of the kidneys and bladder. Findings: Right kidney: measures 12.2 x 5.0 x 4.3 cm. Medullary nephrocalcinosis. Nonobstructing intrarenal calculi. No hydronephrosis. Left kidney: measures 12.2 x 4.6 x 4.5 cm. Medullary nephrocalcinosis. Nonobstructing intrarenal calculi. No hydronephrosis. Urinary bladder: Decompressed urinary bladder. Right ureteral jet is identified. Left ureteral jet is not identified during time of imaging. Targeted ultrasound of left lower quadrant demonstrates peristalsing bowel. IMPRESSION: 1. Bilateral medullary nephrocalcinosis with nonobstructing intrarenal calculi. No hydronephrosis. Electronically signed by: Luciano Stubbs DO (04/26/2020 1:58 AM) [facility] DICTATED and SIGNED BY: LUCIANO STUBBS DO DATE: 04/26/20 [id number] ] Course & Med Decision Making: Course & Med Decision Making Pertinent Labs and Imaging studies reviewed. (See chart for details) [] 39-year-old female presents with left lower quadrant pain. Patient has a long history of kidney stones and has had multiple CT scans this year therefore I do not want to repeat a CAT scan tonight. Ultrasound does not show any hydronephrosis. I reviewed her last CAT scan which shows diverticulosis patient has had diarrhea and elevated white count and left lower quadrant pain therefore we will treat her for diverticulitis. Return precautions given. Patient was treated with Levaquin, Flagyl as well as pain meds and nausea meds. Discussed patient holding off on CAT scan for now and she is in agreement with this plan. Ultrasound was done to rule out ovarian pathology as well. Obi Disclaimer: Obi Disclaimer: This electronic medical record was generated, in whole or in part, using a voice recognition dictation system. Departure Departure Impression: Primary Impression: Left lower quadrant pain Additional Impression: Diverticulitis Disposition: DC HOME SELF CARE/HOMELESS Condition: STABLE Referrals: OLE BARRERA MD (PCP) 2-3 DAYS Patient Instructions: Abdominal Pain, Diverticulitis Additional Instructions: EMERGENCY DEPARTMENT GENERAL DISCHARGE INSTRUCTIONS THANK YOU for coming to [facility] Emergency Department (ED) today and trusting us with your care. We trust that you had a positive experience in our Emergency Department. If you wish to speak to the department Management you can contact the natural sciences department chair at . YOUR FOLLOW UP INSTRUCTIONS ARE FOLLOWS: Do you have a private doctor? If you do not have a private doctor, please ask for a resource list of physicians or clinics that may be able to assist you with follow up care. The Emergency Physician has interpreted your x-rays. The X-ray specialist will also review them. If there is a change in the findings you will be notified in 48 hours when at all possible. A lab test or lab culture may have been done, your results will be reviewed and you will be notified if you need a change in treatment. ADDITIONAL INSTRUCTIONS AND INFORMATION Your care today has been supervised by a physician who is specially trained in emergency care. Many problems require more than one evaluation for a complete diagnosis and treatment. We recommend that you schedule your follow up appointment as recommended to ensure complete treatment of your illness or injury. If you are unable to obtain follow up care and continue to have a problem, or if your condition worsens we recommend that you return to the ED. We are not able to safely determine your condition over the phone nor are we able to give sound medical advice over the phone. For these safety reasons, if you call for medical advice we will ask you to come to the ED for further evaluation If you have any questions regarding these discharge instructions please call the ED at . SAFETY INFORMATION In the interest of safety, wellness, and injury prevention; we encourage you to wear your seatbelt, if you smoke; quit smoking, and we encourage your family to use protective helmet for bicycling and other sporting events that present an increased risk for head injury. IF YOUR SYMPTOMS WORSEN OR NEW SYMPTOMS DEVELOP, OR YOU HAVE CONCERNS ABOUT YOUR CONDITION; OR IF YOUR CONDITION WORSENS WHILE YOU ARE WAITING FOR YOUR FOLLOW UP APPOINTMENT; EITHER CONTACT YOUR PRIMARY CARE DOCTOR, THE PHYSICIAN WHOSE NAME AND NUMBER YOU WERE GIVEN, OR RETURN TO THE ED IMMEDIATELY. Scripts Ondansetron Hcl (ZOFRAN) 4 Mg Tablet 1 TAB PO Q6HRS for NAUSEA, #12 TAB Prov: TRACY MOORE MD 04/26/20 Hydrocodone/Apap 5-325 (NORCO 5-325 TABLET) 1 Each Tablet 1-2 EACH PO PRN Q6HRS PRN for PAIN, #15 as needed for pain Prov: TRACY MOORE MD 04/26/20 Metronidazole (FLAGYL) 500 Mg Tablet 1 TAB PO QID, #40 TAB Prov: TRACY MOORE MD 04/26/20 Levofloxacin (LEVOFLOXACIN) 750 Mg Tablet 1 TAB PO DAILY, #10 TAB Prov: TRACY MOORE MD 04/26/20 TRACY MOORE MD Apr 26, 2020 00:59
[2020-04-26] MEDS ORDERED: IV NORMAL SALINE 1000ML BAG 1,000 ML IV ONE (01:00)
[2020-04-26] MEDS ORDERED: KETOROLAC 15 MG/ML VIAL. IVP ONE (01:00)
[2020-04-26] MEDS ORDERED: ONDANSETRON PF 4 MG/2 ML VIAL. IVP ONE (01:00)
[2020-04-26] MEDS ORDERED: MORPHINE SULFATE 4 MG/ML VIAL. IV ONE (01:00)
[2020-04-26 01:04] LABS: BILIRUBIN,URINE NEGATIVE (NEG); CLARITY,URINE CLEAR; COLOR,URINE YELLOW; NITRITE,URINE NEGATIVE (NEG); PROTEIN,URINE NEGATIVE (NEG-TRACE); UROBILINOGEN,URINE 0.2 mg/dL (0.2 mg/dL)
[2020-04-26 01:13] LABS: BASO # 0.1 x10^3/uL (0.0-0.2); BASO % 1 % (0-3); EOS # 0.2 x10^3/uL (0.0-0.7); EOS % 1 % (0-3); HEMATOCRIT 40.4 % (36.0-47.0); HEMOGLOBIN 13.6 g/dL (12.0-15.5); LYMPH # 2.5 x10^3/uL (1.0-4.8); LYMPH % 19 % (24-48); MEAN CORPUSCULAR HEMOGLOBIN 32 pg (25-35); MEAN CORPUSCULAR HGB CONC 34 g/dL (31-37); MEAN CORPUSCULAR VOLUME 95 fL (79-100); MONO # 0.8 x10^3/uL (0.0-1.1); MONO % 6 % (0-9); NEUT # 9.6 x10^3/uL (1.8-7.7); NEUT % 73 % (31-73); PLATELET COUNT 325 x10^3/uL (140-400); RED BLOOD COUNT 4.26 x10^6/uL (3.50-5.40); RED CELL DISTRIBUTION WIDTH 12.5 % (11.5-14.5); WHITE BLOOD COUNT 13.2 x10^3/uL (4.0-11.0)
[2020-04-26 01:18] LABS: BACTERIA,URINE FEW /HPF (0-FEW); RBC,URINE OCC /HPF (0-2)
[2020-04-26 01:20] LABS: CALCIUM 8.9 mg/dL (8.5-10.1); CREATININE 0.8 mg/dL (0.6-1.0); GFR 80.3; POTASSIUM 4.2 mmol/L (3.5-5.1)
[2020-04-26 01:27] LABS: ALBUMIN 3.3 g/dL (3.4-5.0); ALBUMIN/GLOBULIN RATIO 0.8 (1.0-1.7); TOTAL BILIRUBIN 0.3 mg/dL (0.2-1.0); TOTAL PROTEIN 7.4 g/dL (6.4-8.2)
--- NOTE | 2020-04-26 02:01 | RAD ---
RENAL COMPLETE BILATERAL History: Reason: LLQ PAIN, HX OF STONE / Spl. Instructions: / History: Comparison: CT April 05, 2020 Procedure: Transabdominal ultrasound images are obtained of the kidneys and bladder. Findings: Right kidney: measures 12.2 x 5.0 x 4.3 cm. Medullary nephrocalcinosis. Nonobstructing intrarenal calculi. No hydronephrosis. Left kidney: measures 12.2 x 4.6 x 4.5 cm. Medullary nephrocalcinosis. Nonobstructing intrarenal calculi. No hydronephrosis. Urinary bladder: Decompressed urinary bladder. Right ureteral jet is identified. Left ureteral jet is not identified during time of imaging. Targeted ultrasound of left lower quadrant demonstrates peristalsing bowel. IMPRESSION: 1. Bilateral medullary nephrocalcinosis with nonobstructing intrarenal calculi. No hydronephrosis. Electronically signed by: Luciano Stubbs DO (04/26/2020 1:58 AM) [facility]
--- NOTE | 2020-04-26 02:11 | RAD ---
PELVIS W/TV History: Reason: LLQ PAIN / Spl. Instructions: / History: Comparison: CT April 05, 2020. Technique: Grayscale and color Doppler imaging of the pelvis was performed using transabdominal and transvaginal technique. Findings: Prior hysterectomy. Right ovary measures 2.3 x 1.6 x 1.8 cm. Multiple follicles largest measures 1 cm. Left ovary measures 2.5 x 2.2 x 1.0 cm. Multiple follicles largest measures 0.9 cm. Normal Doppler flow to the ovaries. No adnexal masses are seen. IMPRESSION: 1. Prior hysterectomy. Electronically signed by: Luciano Stubbs DO (04/26/2020 2:08 AM) [facility]
[2020-04-26 02:27] VITALS: BP 94/55
[2020-04-26] MEDS ORDERED: ONDA4TAB7 PO (02:40)
[2020-04-26] MEDS ORDERED: METR500T PO (02:40)
[2020-04-26] MEDS ORDERED: LEVO750T5 PO (02:40)
[2020-04-26] MEDS ORDERED: HYDR-3164 PO (02:40)
[2020-04-26] MEDS ORDERED: metroNIDAZOLE 500 MG TABLET PO ONE (02:45)
== END 2020-04-26 03:00 | disposition home or self-care (01) ==
LOC: ER 23:35
DX: K57.92 Diverticulitis of intestine, part unspecified, without perforation or abscess without bleeding (principal); G43.909 Migraine, unspecified, not intractable, without status migrainosus; Z87.442 Personal history of urinary calculi; F43.10 Post-traumatic stress disorder, unspecified; Z90.710 Acquired absence of both cervix and uterus
CPT/HCPCS: 36415; 76770; 76830; 76856; 80053; 81001; 81025; 83690; 84702; 85025; 87086; 87491; 87591; 96361; 96374; 96375; 99285; J1885; J2270; J2405; J7030

== ENCOUNTER 2020-05-06 21:34 | Emergency (ER) | payer MEDICAID ==
[~2020-05-06] VITALS: Ht 165.1 cm; Wt 90.9 kg
[~2020-05-06 21:34] MED LIST changes: +LEVO750T5 PO; +METR500T PO
[2020-05-06 22:40] LABS: BILIRUBIN,URINE NEGATIVE (NEG); CLARITY,URINE CLOUDY; COLOR,URINE YELLOW; NITRITE,URINE NEGATIVE (NEG); PROTEIN,URINE NEGATIVE (NEG-TRACE); UROBILINOGEN,URINE 0.2 mg/dL (0.2 mg/dL)
[2020-05-06 22:48] LABS: BACTERIA,URINE MANY /HPF (0-FEW); WBC,URINE >40 /HPF (0-4); YEAST,URINE PRESENT /HPF
[2020-05-06 22:52] VITALS: BP 116/75
[2020-05-06] MEDS ORDERED: cefTRIAXone IM 250 MG VIAL IM ONE (23:00)
[2020-05-06] MEDS ORDERED: AZITHROMYCIN 250 MG TABLET. PO ONE (23:00)
[2020-05-06] MEDS ORDERED: FLUC150T PO (23:09)
[2020-05-06] MEDS ORDERED: METR500T PO (23:09)
--- NOTE | 2020-05-06 23:10 | ED.ADGEN ---
Past Medical History Past Medical History: Anxiety, Depression, Kidney Stone, Migraines Additional Past Medical Histor: ptsd,herpes symplex,hydroureternephosis,angio edema Past Surgical History: Hysterectomy, Tonsillectomy Additional Past Surgical Histo: lithotripsy, RLE fx repair x 3 Smoking Status: Never Smoker Alcohol Use: Rarely Drug Use: None General Adult EDM: Chief Complaint: VAGINAL PROBLEM HPI: HPI: Patient is a 39 year old female who presents to the emergency department with complaints of thick white chunky vaginal discharge for the last 3 days. She states that her labia feels swollen and tenorio when she urinates. She reports that she had unprotected intercourse 4 days ago and the symptoms began after that. She also reports that her genitalia feels very itchy. Patient denies any odor or vaginal bleeding. She denies any increased urinary frequency, hematuria, back pain, or difficulty voiding. She currently rates her discomfort 8 out of 10 and describes it as genital burning. She denies any alleviating f actors. The patient denies any pelvic pain or abdominal pain. She denies any chance of , the patient reports a partial hysterectomy. Review of Systems: Review of Systems: Complete ROS is negative unless otherwise noted in HPI. Current Medications: Current Medications Medications (Trade) Dose Ordered Sig/Clarissa Start Time Stop Time Status Last Admin Dose Admin Azithromycin (Zithromax) 1,000 mg 1X ONCE 05/06/20 23:00 05/06/20 23:01 DC 05/06/20 22:56 1,000 MG Ceftriaxone Sodium (Rocephin Im) 250 mg 1X ONCE 05/06/20 23:00 05/06/20 23:01 DC 05/06/20 22:56 250 MG Allergies: Allergies: Allergies Coded Allergies Type Severity Reaction Last Updated Verified No Known Drug Allergies 08/25/17 No Physical Exam: PE: See Above Constitutional: Well developed, well nourished, no acute distress, non-toxic appearance. HENT: Normocephalic, atraumatic, bilateral external ears normal, nose normal. Eyes: PERRLA, EOMI, conjunctiva normal, no discharge. Neck: Normal range of motion, no stridor. Cardiovascular: Heart rate regular rhythm Lungs & Thorax: Respirations even and unlabored, no retractions, no respiratory distress Pelvic Exam: Patent Leather Sorter present Elis GILLILAND Abdomen: Nontender, soft External Genitalia: Normal Skin, butterfly tattoo of labia present Speculum: Normal vaginal mucosa, thick white vaginal discharge present Bimanual: No adnexal masses or tenderness Skin: Warm, dry, no erythema, no rash. Extremities: No cyanosis, ROM intact, no edema. Neurologic: Alert and oriented X 3, no focal deficits noted. Psychologic: Affect normal, judgement normal, mood normal. Current Patient Data: Labs: Laboratory Tests Test 05/06/20 22:00 05/06/20 22:01 Urine Collection Type Unknown Urine Color Yellow Urine Clarity Cloudy Urine pH 6.0 (<5.0-8.0) Urine Specific [place] 1.025 (1.000-1.030) Urine Protein Negative mg/dL (NEG-TRACE) Urine Glucose (UA) Negative mg/dL (NEG) Urine Ketones (Stick) Negative mg/dL (NEG) Urine Blood Trace (NEG) Urine Nitrite Negative (NEG) Urine Bilirubin Negative (NEG) Urine Urobilinogen Dipstick 0.2 mg/dL (0.2 mg/dL) Urine Leukocyte Esterase Large (NEG) Urine RBC 1-2 /HPF (0-2) Urine WBC >40 /HPF (0-4) Urine Squamous Epithelial Cells Many /LPF Urine Bacteria Many /HPF (0-FEW) Urine Mucus Mod /LPF Urine Yeast Present /HPF POC Urine HCG, Qualitative Hcg negative (Negative) Microbiology 05/06/20 Wet Prep - Final, Complete Vital Signs: Vital Signs Date Time Temp Pulse Resp B/P (MAP) Pulse Ox O2 Delivery O2 Flow Rate FiO2 05/06/20 22:00 98.1 99 18 115/71 (86) 98 Room Air 98.1 EKG: EKG: [] Heart Score: Risk Factors: Risk Factors: DM, Current or recent (<one month) smoker, HTN, HLP, family history of CAD, obesity. Risk Scores: Score 0 - 3: 2.5% MACE over next 6 weeks - Discharge Home Score 4 - 6: 20.3% MACE over next 6 weeks - Admit for Clinical Observation Score 7 - 10: 72.7% MACE over next 6 weeks - Early Invasive Strategies Radiology/Procedures: Radiology/Procedures: [] Course & Med Decision Making: Course & Med Decision Making Pertinent Labs and Imaging studies reviewed. (See chart for details) 39-year-old female presents emergency department with complaints of genital burning with urination and abnormal vaginal discharge. Pelvic exam as documented above Yeast and greater than 40 white blood cells present in patient's urine Wet mount was concerning for bacterial vaginosis and also vaginal Giovana Prescriptions written for flagyl and nystatin Patient was treated prophylactically with 250 mg of IM Rocephin, and 1 g of PO Zithromax. Patient was instructed to avoid having intercourse until the results of gonorrhea and chlamydia testing are available, patient was notified that these results would not be available for 48 hours. If one or both of these tests is positive, patient needs to refrain from intercourse for approximately 1 week following the treatment of any current partners. Patient verbalized an understanding of home care, medications, follow-up, and return to ED instructions and was in agreement with the plan of care. [] Dragon Disclaimer: Dragon Disclaimer: This electronic medical record was generated, in whole or in part, using a voice recognition dictation system. Departure Departure Impression: Primary Impression: Yeast infection involving the vagina and surrounding area Additional Impressions: Concern about STD in female without diagnosis Bacterial vaginosis Yeast UTI Disposition: 01 DC HOME SELF CARE/HOMELESS Condition: STABLE Referrals: OLE BARRERA MD (PCP) Patient Instructions: Bacterial Vaginosis, [id number], Candidal Vulvovaginitis, [id number], Sexually Transmitted Disease, [id number] Additional Instructions: Fill prescription(s) and use as directed. Avoid bladder irritants such as caffeine, carbonation, and spicy foods. Increase clear fluids. Recommend that you go to your local health department for comprehensive sexually transmitted disease testing. You have been treated for a suspected gonorrhea and chlamydia. Avoid having intercourse until the results of gonorrhea and chlamydia testing are available, these results will not be available for 48 hours. If one or both of these tests is positive, you need to refrain from intercourse for approximately 1 week following the treatment of any current partners. Follow-up with your primary care doctor if symptoms persist, return to ER symptoms worsen. Scripts Fluconazole (DIFLUCAN) 150 Mg Tablet 1 TAB PO ONCE, #1 TAB 1 Refill may repeat in 3 days if symptoms persist. Prov: JESSICA COE CHANGE CONTROL SPECIALIST 05/06/20 Metronidazole (FLAGYL) 500 Mg Tablet 1 TAB PO BID, #14 TAB Prov: JESSICA COE APRN 05/06/20 Problem Qualifiers JESSICA COE APRN May 06, 2020 23:10
[2020-05-09 07:16] LABS: GC PROBE Negative (Negative)
== END 2020-05-06 23:19 | disposition home or self-care (01) ==
LOC: ER 21:34
DX: B37.3 Candidiasis of vulva and vagina (principal); N76.0 Acute vaginitis; B96.89 Other specified bacterial agents as the cause of diseases classified elsewhere; B37.49 Other urogenital candidiasis; Z20.2 Contact with and (suspected) exposure to infections with a predominantly sexual mode of transmission; G43.909 Migraine, unspecified, not intractable, without status migrainosus; F43.10 Post-traumatic stress disorder, unspecified
CPT/HCPCS: 81001; 81025; 87086; 87491; 87591; 96372; 99284; J0696; Q0111

== ENCOUNTER → 2020-06-08 | Outpatient (CLI) | payer MEDICAID | LOC: LAB 12:06 | PROVIDERS: ATTEND Obstetrics & Gynecology | DX: N39.0 Urinary tract infection, site not specified (principal); N76.0 Acute vaginitis; E46 Unspecified protein-calorie malnutrition | CPT/HCPCS: 36415; 86592; 86695; 86696; 86703 ==

== ENCOUNTER 2020-09-18 20:42 | Emergency (ER) | payer OTHER, MEDICAID ==
[~2020-09-18] VITALS: Ht 165.1 cm; Wt 90.0 kg
[~2020-09-18 20:42] MED LIST changes: -ACYC800T PO; +ACYC800T88 PO
[2020-09-18 21:37] VITALS: BP 128/87
[2020-09-18] MEDS ORDERED: IBUPROFEN 200 MG TABLET. PO ONE (23:15)
[2020-09-18] MEDS ORDERED: HYDROcodone/APAP 5/325MG 1 TAB TABLET PO ONE (23:15)
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
== END 2020-09-19 01:10 | disposition home or self-care (01) ==
LOC: ER 20:42
DX: S00.03XA Contusion of scalp, initial encounter (principal); S80.01XA Contusion of right knee, initial encounter; G43.909 Migraine, unspecified, not intractable, without status migrainosus; F32.9 Major depressive disorder, single episode, unspecified; F41.9 Anxiety disorder, unspecified; V49.49XA Driver injured in collision with other motor vehicles in traffic accident, initial encounter; Y93.I9 Activity, other involving external motion; Y92.488 Other paved roadways as the place of occurrence of the external cause; Y99.8 Other external cause status
CPT/HCPCS: 70450; 72125; 73564; 99285-25

== ENCOUNTER → 2020-09-21 | Outpatient (CLI) | payer MEDICAID ==
[2020-09-18 21:37] VITALS: BP 128/87
--- NOTE | 2020-09-22 16:55 | KCIC ---
MRI left hip without contrast dated 09/21/2020. No comparison available. Clinical data indication: Hip pain for 3 to 4 months. TECHNIQUE: Routine multiplanar multisequence MR imaging was performed. FINDINGS: Bone marrow signal is homogeneous. No marrow edema. No periostitis or bone destruction. There is mild hypertrophic change of the left hip joint with mild subchondral cystic change. Minimal thinning of t he articular cartilage with no full-thickness osteochondral defect. No apparent joint effusion or loo se body. No definite labral tear or perilabral cyst. Gluteus minimus and gluteus medius tendons are intact. The proximal hamstring tendon complex is intac t. Iliopsoas is intact. No significant soft tissue abnormality. Wide [id number]-qm-mklg imaging of the pelvis shows a 2.5 cm left ovarian cyst. There is no free fluid. Ur inary bladder unremarkable. The uterus is not clearly identified and may be surgically absent. IMPRESSION: 1. No acute bony or soft tissue abnormality. 2. Small left ovarian cyst versus dominant follicle. Electronically signed by: Varinder Al MD (09/22/2020 4:52 PM) [id number]
== END ==
LOC: KCIC MRI 15:16
PROVIDERS: ATTEND Family Medicine
DX: N83.292 Other ovarian cyst, left side (principal)
CPT/HCPCS: 73721

== ENCOUNTER 2020-10-25 18:42 | Emergency (ER) | payer MEDICAID ==
[~2020-10-25] VITALS: Ht 165.1 cm; Wt 86.4 kg
[2020-10-25 19:08] VITALS: BP 138/82
[2020-10-25] MEDS ORDERED: CEPH500T PO (19:42)
[2020-10-25] MEDS ORDERED: DIPH,PERTUSS(ACELL),TET VAC/PF 0.5 ML SYRINGE. VAX IM ONE (19:45)
[2020-10-25] MEDS ORDERED: NEOM28.33 TP (19:49)
--- NOTE | 2020-10-25 19:50 | PHYS DOC ---
Past Medical History Past Medical History: Anxiety, Depression, Hypothyroid, Kidney Stone, Phani ender, Other Additional Past Medical Histor: ptsd,herpes symplex,hydroureternephosis,angio edema Past Surgical History: Hysterectomy, Tonsillectomy, Other Additional Past Surgical Histo: lithotripsy, RLE fx repair x 3 Smoking Status: Never Smoker Alcohol Use: None Drug Use: None General Adult EDM: Chief Complaint: LOWEREXTREMITY INJURY HPI: HPI: 40-year-old female past medical history of anxiety, depression, migraines and hy pothyroidism presents the ED with complaints of painful inner thigh rash that is occurred over the past couple days. Patient states she started a new job and is under a 90-day interim where she has been on her feet for 10 hours a day while wearing jeans (not new) that have rubbed off the skin of the inner thighs, reports serous drainage. States no relief with pain medicine including ibuprofen and Neosporin (told rn she hadn't used neosporin). No associated rash. Not recall last tetanus.told Review of Systems: Review of Systems: Constitutional: Denies fever or chills. [] Eyes: Denies change in visual acuity or eye drainage HENT: Denies nasal congestion or sore throat. [] Respiratory: Denies cough or shortness of breath. [] Cardiovascular: Denies chest pain or edema. [] GI: Denies nausea, vomiting, Integument: Denies desquamation or erythematous rash Psychiatric: Denies suicidal homicidal ideations Heart Score: C/O Chest Pain: No Risk Factors: Risk Factors: DM, Current or recent (<one month) smoker, HTN, HLP, family history of CAD, obesity. Risk Scores: Score 0 - 3: 2.5% MACE over next 6 weeks - Discharge Home Score 4 - 6: 20.3% MACE over next 6 weeks - Admit for Clinical Observation Score 7 - 10: 72.7% MACE over next 6 weeks - Early Invasive Strategies Allergies: Allergies: Allergies Coded Allergies Type Severity Reaction Last Updated Verified No Known Drug Allergies 08/25/17 No Physical Exam: PE: Constitutional: Well developed, , no acute distress, non-toxic appearance, obese HENT: Normocephalic, atraumatic, Eyes: EOMI, conjunctiva normal, no discharge. Neck: Normal range of motion, supple, Cardiovascular: S1/2 present, regular rhythm Lungs & Thorax: Speaking in full sentences, bilateral equal chest rise, no tachypnea or increased work of breathing Skin: Warm, dry, left upper inner thigh with 6 x 1cm abrasion with serous drainage, opposite subjective side on right upper inner thigh (3-4 cms below inguinal crease) w/3x1cm abrasion - no drainage, no surrounding erythema/induration/fluctuance or subcutaneous emphysema Extremities: No tenderness, no cyanosis, Neurologic: Alert and oriented X 3, no focal deficits noted. [] Psychologic: affect normal, mood=emotional/overwhelmed/stressed, crying regarding pain management Current Patient Data: Vital Signs: Vital Signs Date Time Temp Pulse Resp B/P (MAP) Pulse Ox O2 Delivery O2 Flow Rate FiO2 10/25/20 19:08 98.0 99 20 138/82 (100) 99 Room Air 98.0 EKG: EKG: [] Radiology/Procedures: Radiology/Procedures: [] Course & Med Decision Making: Course & Med Decision Making Pertinent Labs and Imaging studies reviewed. (See chart for details) Concern for infection abrasion to patient's inner thighs. Patient emotional in ED and keeps repeatedly asking what will help with the pain after I told her my recommendations of tefla/dressings and topical pain relieving Neosporin will at work, open to air uncovered at home, Keflex for cellulitis prophylaxis. Patient required a lot of education regarding wound care management including charge nurse involvement for assistance. I suspect patient is very overwhelmed with job pressure/90 day interim period with new job and cannot afford to miss work. Narcotic and muscle relaxer rx not indicated and lido patches would interfere with wound care. Patient afebrile with no signs of cellulitis or underlying infection/abscess. Will discharge home with strict ED return precautions were given for worsening rash, increased pain, purulent drainage or fever. Encouraged urgent outpatient follow-up with PMD and wound care. Life-threatening processes were considered but are low suspicion at this time, given history, physical exam and ED workup. Pt was educated on all prescription medications and adverse effects. All patient's questions were answered and pt was stable at time of discharge. Life/limb-threatening differential includes but is not limited to, erythema multiforme, hernandes-sandor syndrome, toxic epidermal necrolysis, staphylococcal scalded skin syndrome, necrotizing fasciitis/myositis/cellulitis, purpura fulminans, heparin or warfarin induced skin necrosis, angioedema, anaphylaxis drug rash, disseminated intravascular coagulation, disseminated gonococcal disease, vasculitis, septicemia, petechial disorder or coagulopathy, viral exanthem, Kawasaki's disease or life-threatening burn requiring burn center management or escharotomy. I spoken with the patient and her caregivers. I explained the patient's condition, diagnoses and treatment plan based on the information available to me at this time. I have answered the patient and her caregiver's questions and addressed any concerns. The patient and her caregivers have a good understanding of patient's diagnosis, condition and treatment plan as can be expected at this point. Vital signs have been stable. Patient's condition is stable and appropriate for discharge from the emergency department. Patient will pursue further outpatient evaluation with primary care physician or other designated or consulting physician as outlined in the discharge instru ctions. The patient and/or caregivers are agreeable to this plan of care and follow-up instructions have been explained in detail. The patient and/or caregivers have received these instructions in written form and have expressed an understanding of the discharge instructions. The patient and/or caregivers are aware that any significant change of condition or worsening of symptoms should prompt immediate return to this or the closest emergency department or call to 911. Obi Disclaimer: Obi Disclaimer: This electronic medical record was generated, in whole or in part, using a voice recognition dictation system. Departure Departure Impression: Primary Impression: Abrasion, thigh w/o infection Additional Impressions: Abrasion of thigh, right Abrasion of thigh, left Need for Tdap vaccination Disposition: 01 HOME / SELF CARE / HOMELESS Condition: STABLE Referrals: OLE BARRERA MD (PCP) Follow-up for wound care in 2 to 3 days or FOLLOW UP WITH FAMILY MEDICINE: [address] [place] [address] Patient Instructions: Abrasions, VIS, Tetanus, Diphtheria (Td); Tetanus, Diphtheria, Pertussis (Tdap) - [facility], Wound Care, [id number] Additional Instructions: FOLLOW UP WITH WOUND CARE: For definitive management [facility] [address], [address] [place] [address] EMERGENCY DEPARTMENT GENERAL DISCHARGE INSTRUCTIONS Thank you for coming to [facility] Emergency Department (ED) today and trusting us with you care. We trust that you had a positive experience in our Emergency Department. If you wish to speak to the department management, you may call the Director at [phone]. YOUR FOLLOW UP INSTRUCTIONS ARE FOLLOWS: 1. Do you have a private Doctor? If you do not have a private doctor, please ask for a resource list of physicians or clinics that may be able to assist you with follow up care. 2. The Emergency Physicain has interpreted your x-rays. The X-Ray specialist will also review them. If there is a change in the findings, you will be notified in 48 hours when at all possible. 3. A lab test or culture has been done, your results will be reviewed and you will be notified if you need a change in treatment. ADDITIONAL INSTRUCTIONS AND INFORMATION: 1. Your care today has been supervised by a physician who is specially trained in emergency care. Many problems require more than one evaluation for a complete diagnosis and treatment. We recommend that you schedule your follow up appointment as recommended to ensure complete treatment of you illness or injury. If you are unable to obtain follow up care and continue to have a problem, or if your condition worsens, we recommend that you return to the ED. 2. We are not able to safely determine your condition over the phone nor are we able to give sound medical advice over the phone. For these safety reasons, if you call for medical advice we will ask you to come to the ED for further evaluation. 3. If you have any questions regarding these discharge instructions please call the ED at [phone]. SAFETY INFORMATION: In the interest of safety, wellness, and injury prevention; we encourage you to wear your sealbelt, if you smoke; quite smoking, and we encourage family to use a protective helmet for bicycling and other sporting events that present an increased risk for head injury. IF YOUR SYMPTOMS WORSEN OR NEW SYMPTOMS DEVELOP, OR YOU HAVE CONCERNS ABOUT YOUR CONDITION; OR IF YOUR CONDITION WORSENS WHILE YOU ARE WAITING FOR YOUR FOLLOW UP APPOINTMENT; EITHER CONTACT YOUR PRIMARY CARE DOCTOR, THE PHYSICIAN WHOSE NAME AND NUMBER YOU WERE GIVEN, OR RETURN TO THE ED IMMEDIATELY. Scripts Neophilip/Hieui Zn/Pmyx Bs/Pramox (NEOSPORIN + PAIN RELIEF OINT) 28.3 Gm Oint...g. 28.3 GM TP TID for 5 Days, #28.3 GM Prov: HAJA HUTTON DO 10/25/20 Cephalexin (CEPHALEXIN) 500 Mg Tablet 1 TAB PO QID for 7 Days, #28 TAB Prov: HAJA HUTTON DO 10/25/20 HAJA HUTTON DO Oct 25, 2020 19:49
[2020-10-25] MEDS ORDERED: HYDROcodone/APAP 5/325MG 1 TAB TABLET PO ONE (21:00)
== END 2020-10-25 20:52 | disposition home or self-care (01) ==
LOC: ER 18:42
DX: S70.312A Abrasion, left thigh, initial encounter (principal); S70.311A Abrasion, right thigh, initial encounter; G43.909 Migraine, unspecified, not intractable, without status migrainosus; E03.9 Hypothyroidism, unspecified; X58.XXXA Exposure to other specified factors, initial encounter; Y93.89 Activity, other specified; Y92.89 Other specified places as the place of occurrence of the external cause; Y99.8 Other external cause status
CPT/HCPCS: 90471; 90715; 99283

== ENCOUNTER 2021-01-08 17:37 | Emergency (ER) | payer OTHER, MEDICAID ==
[~2021-01-08] VITALS: Ht 165.1 cm; Wt 81.0 kg
[~2021-01-08 17:37] MED LIST changes: +CEPH500T PO; +NEOM28.33 TP
[2021-01-08] MEDS ORDERED: MORPHINE SULFATE 4 MG/ML INJ. IVP ONE (22:30)
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
[2021-01-08 23:20] LABS: BASO # 0.1 x10^3/uL (0.0-0.2); BASO % 1 % (0-3); EOS # 0.3 x10^3/uL (0.0-0.7); EOS % 3 % (0-3); HEMATOCRIT 40.8 % (36.0-47.0); LYMPH # 3.8 x10^3/uL (1.0-4.8); LYMPH % 45 % (24-48); MEAN CORPUSCULAR HEMOGLOBIN 32 pg (25-35); MEAN CORPUSCULAR HGB CONC 34 g/dL (31-37); MEAN CORPUSCULAR VOLUME 94 fL (79-100); MONO # 0.6 x10^3/uL (0.0-1.1); MONO % 8 % (0-9); NEUT # 3.6 x10^3/uL (1.8-7.7); NEUT % 43 % (31-73); PLATELET COUNT 322 x10^3/uL (140-400); RED BLOOD COUNT 4.34 x10^6/uL (3.50-5.40); RED CELL DISTRIBUTION WIDTH 13.1 % (11.5-14.5); WHITE BLOOD COUNT 8.4 x10^3/uL (4.0-11.0)
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
[2021-01-08 23:50] LABS: CALCIUM 9.1 mg/dL (8.5-10.1); CREATININE 0.9 mg/dL (0.6-1.0); GFR 69.7; POTASSIUM 3.7 mmol/L (3.5-5.1)
[2021-01-08 23:55] LABS: ALBUMIN 4.2 g/dL (3.4-5.0); ALBUMIN/GLOBULIN RATIO 1.2 (1.0-1.7); TOTAL BILIRUBIN 0.6 mg/dL (0.2-1.0); TOTAL PROTEIN 7.8 g/dL (6.4-8.2)
[2021-01-09 00:23] VITALS: BP 124/76
== END 2021-01-09 00:30 | disposition home or self-care (01) ==
LOC: ER 17:37
DX: S16.1XXA Strain of muscle, fascia and tendon at neck level, initial encounter (principal); S80.01XA Contusion of right knee, initial encounter; S90.121A Contusion of right lesser toe(s) without damage to nail, initial encounter; M54.6 Pain in thoracic spine; E03.9 Hypothyroidism, unspecified; F43.10 Post-traumatic stress disorder, unspecified; G43.909 Migraine, unspecified, not intractable, without status migrainosus; Z90.710 Acquired absence of both cervix and uterus; V49.49XA Driver injured in collision with other motor vehicles in traffic accident, initial encounter; Y93.89 Activity, other specified; Y92.488 Other paved roadways as the place of occurrence of the external cause; Y99.8 Other external cause status
CPT/HCPCS: 36415; 70450; 71250; 72125; 72131; 73562; 73630; 80053; 85025; 96374; 99285; J2270

== ENCOUNTER 2021-01-15 05:29 | Emergency (ER) | payer OTHER, MEDICAID ==
[~2021-01-15] VITALS: Ht 165.1 cm; Wt 90.9 kg
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
[2021-01-15 06:00] VITALS: BP 126/77
[2021-01-15] MEDS ORDERED: oxyCODONE IR 5 MG TABLET PO ONE (06:00)
[2021-01-15] MEDS ORDERED: CYCLOBENZAPRINE 10 MG TABLET. PO ONE (06:00)
[2021-01-15] MEDS ORDERED: TRAM-48 PO ×2 (06:11→06:12)
[2021-01-15] MEDS ORDERED: CYCL5TAB PO (06:11)
== END 2021-01-15 06:20 | disposition home or self-care (01) ==
LOC: ER 05:29
DX: G43.909 Migraine, unspecified, not intractable, without status migrainosus (principal); S16.1XXA Strain of muscle, fascia and tendon at neck level, initial encounter; E03.9 Hypothyroidism, unspecified; F43.10 Post-traumatic stress disorder, unspecified; V49.49XA Driver injured in collision with other motor vehicles in traffic accident, initial encounter; Y93.89 Activity, other specified; Y92.488 Other paved roadways as the place of occurrence of the external cause; Y99.8 Other external cause status
CPT/HCPCS: 99283

== ENCOUNTER → 2021-02-24 | Emergency (ER) | payer OTHER, MEDICAID ==
[~2021-02-24] MED LIST changes: +CYCL5TAB PO; +TRAM-48 PO
== END | disposition left against medical advice (07) ==
LOC: ER 14:39
DX: M79.606 Pain in leg, unspecified (principal); Z53.21 Procedure and treatment not carried out due to patient leaving prior to being seen by health care provider; W18.39XA Other fall on same level, initial encounter; Y93.89 Activity, other specified; Y92.89 Other specified places as the place of occurrence of the external cause; Y99.8 Other external cause status

== ENCOUNTER 2021-05-27 17:31 | Emergency (ER) | payer MEDICAID, OTHER ==
[~2021-05-27] VITALS: Ht 165.1 cm; Wt 87.5 kg
[~2021-05-27 17:31] MED LIST changes: +DICY20TA PO; -DICY20TA3 PO
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
[2021-05-27] MEDS ORDERED: ACET500T68 PO (21:14)
[2021-05-27] MEDS ORDERED: MORP15TA PO ×2 (21:14→21:15)
[2021-05-27] MEDS: LIDOCAINE (700MG/PATCH) PATCH. TD ONE (21:20)
[2021-05-27] MEDS: ACETAMINOPHEN 500 MG TABLET PO ONE (21:21)
[2021-05-27] MEDS: MORPHINE IR 15 MG TABLET PO STA (21:21)
== END 2021-05-27 21:25 | disposition home or self-care (01) ==
LOC: ER 17:31
DX: G89.29 Other chronic pain (principal); M25.561 Pain in right knee; E03.9 Hypothyroidism, unspecified; G43.909 Migraine, unspecified, not intractable, without status migrainosus; F43.10 Post-traumatic stress disorder, unspecified
CPT/HCPCS: 99284

== ENCOUNTER 2021-06-22 19:15 | Emergency (ER) | payer MEDICAID ==
[~2021-06-22] VITALS: Ht 162.6 cm; Wt 85.0 kg
[~2021-06-22 19:15] MED LIST changes: +ACET500T68 PO; -LURA40TA PO; +LURA40TA2 PO; +MORP15TA PO
[2021-06-22] MEDS ORDERED: ONDANSETRON PF 4 MG/2 ML VIAL. IVP ONE (19:45)
[2021-06-22] MEDS ORDERED: fentaNYL PF VIAL 100 MCG/2 ML VIAL IVP ONE (19:45)
[2021-06-22] MEDS ORDERED: IV NORMAL SALINE 1000ML BAG 1,000 ML IV SCH (19:45)
[2021-06-22 19:54] LABS: BILIRUBIN,URINE NEGATIVE (NEG); CLARITY,URINE CLOUDY; COLOR,URINE YELLOW; NITRITE,URINE NEGATIVE (NEG); PROTEIN,URINE NEGATIVE (NEG-TRACE); UROBILINOGEN,URINE 0.2 mg/dL (0.2 mg/dL)
[2021-06-22 20:02] LABS: BACTERIA,URINE MANY /HPF (0-FEW)
--- NOTE | 2021-06-22 20:02 | PHYS DOC ---
Past Medical History Past Medical History: Anxiety, Depression, Hypothyroid, Kidney Stone, Phani ender, Other Additional Past Medical Histor: ptsd,herpes symplex,hydroureternephosis,angio edema Past Surgical History: Hysterectomy, Tonsillectomy, Other Additional Past Surgical Histo: lithotripsy, RLE fx repair x 3 Smoking Status: Never Smoker Alcohol Use: None Drug Use: None General Adult EDM: Chief Complaint: FLANK PAIN HPI: HPI: Patient is a 40-year-old female who presents to the emergency department for right flank pain that radiates to her right lower quadrant that started 5 days ago. Patient is also reporting dribbling of urine. She rates her pain 9 out of 10. She has been taking Tylenol at home with little relief in her symptoms. She is also reporting nausea. She denies any dysuria, hematuria, vomiting, diarrhea, fevers. She has history of kidney stones and states that this feels just like her kidney stones. 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 Review of Systems: Review of Systems: Constitutional: negative unless reported in HPI Eyes: negative unless reported in HPI HENT: negative unless reported in HPI Respiratory: negative unless reported in HPI Cardiovascular: negative unless reported in HPI GI: negative unless reported in HPI : negative unless reported in HPI Musculoskeletal: negative unless reported in HPI Integument: negative unless reported in HPI Neurologic: negative unless reported in HPI Endocrine: negative unless reported in HPI Lymphatic: negative unless reported in HPI Psychiatric: negative unless reported in HPI Heart Score: C/O Chest Pain: N/A Risk Factors: Risk Factors: DM, Current or recent (<one month) smoker, HTN, HLP, family history of CAD, obesity. Risk Scores: Score 0 - 3: 2.5% MACE over next 6 weeks - Discharge Home Score 4 - 6: 20.3% MACE over next 6 weeks - Admit for Clinical Observation Score 7 - 10: 72.7% MACE over next 6 weeks - Early Invasive Strategies Current Medications: Current Medications Medications (Trade) Dose Ordered Sig/Clarissa Start Time Stop Time Status Last Admin Dose Admin Fentanyl Citrate (Fentanyl 2ml Vial) 50 mcg 1X ONCE 06/22/21 19:45 06/22/21 19:46 DC Ondansetron HCl (Zofran) 4 mg 1X ONCE 06/22/21 19:45 06/22/21 19:46 DC Sodium Chloride 1,000 ml @ 1,000 mls/hr Q1H 06/22/21 19:45 06/22/21 20:44 Allergies: Allergies: Allergies Coded Allergies Type Severity Reaction Last Updated Verified No Known Drug Allergies 08/25/17 No Physical Exam: PE: Constitutional: Well developed, well nourished, no acute distress, non-toxic appearance. [] HENT: Normocephalic, atraumatic, bilateral external ears normal, oropharynx moist, no oral exudates, nose normal. [] Eyes: PERRL, EOMI, conjunctiva normal, no discharge. [] Neck: Normal range of motion, no stridor Cardiovascular:Heart rate regular rhythm, no murmur [] Lungs & Thorax: Bilateral breath sounds clear to auscultation [] Abdomen: Bowel sounds normal, soft, no abdominal guarding or rigidity, negative Sifuentes sign, no rebound tenderness, tenderness with palpation to right lower abdomen/pelvic region, no masses, no pulsatile masses. [] Skin: Warm, dry, no erythema, no rash. [] Back: No tenderness, mild right CVA tenderness Extremities: No tenderness, no cyanosis, no clubbing, ROM intact, no edema. [] Neurologic: Alert and oriented X 3, normal motor function, normal sensory function, no focal deficits noted. [] Psychologic: Affect normal, judgement normal, mood normal. [] Current Patient Data: Labs: Laboratory Tests Test 06/22/21 19:25 06/22/21 19:48 06/22/21 20:00 Urine Collection Type Unknown Urine Color Yellow Urine Clarity Cloudy Urine pH 6.0 Urine Specific [place] 1.025 Urine Protein Negative mg/dL Urine Glucose (UA) Negative mg/dL Urine Ketones (Stick) Negative mg/dL Urine Blood Small Urine Nitrite Negative Urine Bilirubin Negative Urine Urobilinogen Dipstick 0.2 mg/dL Urine Leukocyte Esterase Negative Urine RBC 6-10 /HPF Urine WBC 5-10 /HPF Urine Squamous Epithelial Cells Many /LPF Urine Bacteria Many /HPF Urine Mucus Mod /LPF Bedside Urine HCG, Qualitative Hcg negative White Blood Count 11.3 x10^3/uL Red Blood Count 4.29 x10^6/uL Hemoglobin 13.8 g/dL Hematocrit 40.5 % Mean Corpuscular Volume 94 fL Mean Corpuscular Hemoglobin 32 pg Mean Corpuscular Hemoglobin Concent 34 g/dL Red Cell Distribution Width 13.0 % Platelet Count 330 x10^3/uL Neutrophils (%) (Auto) 52 % Lymphocytes (%) (Auto) 37 % Monocytes (%) (Auto) 9 % Eosinophils (%) (Auto) 1 % Basophils (%) (Auto) 1 % Neutrophils # (Auto) 5.9 x10^3/uL Lymphocytes # (Auto) 4.2 x10^3/uL Monocytes # (Auto) 1.0 x10^3/uL Eosinophils # (Auto) 0.2 x10^3/uL Basophils # (Auto) 0.1 x10^3/uL Sodium Level 138 mmol/L Potassium Level 5.1 mmol/L Chloride Level 105 mmol/L Carbon Dioxide Level 30 mmol/L Anion Gap 3 Blood Urea Nitrogen 16 mg/dL Creatinine 0.8 mg/dL Estimated GFR (Cockcroft-Gault) 79.9 BUN/Creatinine Ratio 20 Glucose Level 101 mg/dL Calcium Level 8.6 mg/dL Total Bilirubin 0.3 mg/dL Aspartate Amino Transf (AST/SGOT) 16 U/L Alanine Aminotransferase (ALT/SGPT) 18 U/L Alkaline Phosphatase 69 U/L Total Protein 7.8 g/dL Albumin 3.6 g/dL Albumin/Globulin Ratio 0.9 Lipase 348 U/L Current Medications Medications (Trade) Dose Ordered Sig/Clarissa Route PRN Reason Start Time Stop Time Status Last Admin Dose Admin Sodium Chloride 1,000 ml @ 1,000 mls/hr Q1H IV 06/22/21 19:45 06/22/21 20:44 DC 06/22/21 20:17 Fentanyl Citrate (Fentanyl 2ml Vial) 50 mcg 1X ONCE IVP 06/22/21 19:45 06/22/21 19:46 DC 06/22/21 20:17 Ondansetron HCl (Zofran) 4 mg 1X ONCE IVP 06/22/21 19:45 06/22/21 19:46 DC 06/22/21 20:17 Morphine Sulfate (Morphine Sulfate) 2 mg 1X ONCE IVP 06/22/21 21:00 06/22/21 21:01 DC 06/22/21 21:11 Ketorolac Tromethamine (Toradol 30mg Vial) 30 mg 1X ONCE IVP 06/22/21 21:00 06/22/21 21:01 DC 06/22/21 21:11 Laboratory Tests Test 06/22/21 19:48 POC Urine HCG, Qualitative Hcg negative (Negative) Vital Signs: Vital Signs Date Time Temp Pulse Resp B/P (MAP) Pulse Ox O2 Delivery O2 Flow Rate FiO2 06/22/21 19:40 98.1 96 16 124/84 (97) 100 Room Air 98.1 EKG: EKG: [] Radiology/Procedures: Radiology/Procedures: []PROCEDURE: CT ABDOMEN PELVIS WO CONTRAST Exam: CT of abdomen and pelvis without contrast INDICATION: Flank pain, rule out kidney stone TECHNIQUE: Sequential axial images through the abdomen and pelvis obtained wi thout IV contrast. Sagittal and coronal reformatted images were reconstructed from the axial data and reviewed. Exposure: One or more of the following in the visualized dose reduction techniques were utilized for this examination: 1. Automated exposure control 2. Adjustment of the MA and/or KV according to patient size 3. Use of iterative of reconstructive technique Comparisons: 04/05/2020 FINDINGS: Heart size is normal. No pericardial effusion. Visualized lung bases are clear. No pleural effusion. Evaluation of solid organs is limited secondary to noncontrast technique. Liver, spleen, pancreas, gallbladder and adrenals are unremarkable. There is mild right-sided hydronephrosis. Bilateral nonobstructing renal calculi are noted. 6 mm calculus the distal right ureter. Bladder is decompressed not well evaluated. Uterus is absent. No abnormal adnexal mass. Diverticulosis is noted at the sigmoid colon without evidence of acute diverticulitis. Appendix is normal. Small bowel is unremarkable. No free intra- abdominal air or fluid. No obstruction. Abdominal aorta has normal course and caliber. No enlarged intra-abdominal lymph nodes are identified. No suspicious osseous lesions or acute fractures. IMPRESSION: 1. A 6 mm calculus the distal right ureter causing mild right-sided hydronephrosis. 2. Nonobstructing bilateral renal calculi. Electronically signed by: Annamaria Woodward MD (06/22/2021 8:36 PM) [facility] DICTATED and SIGNED BY: ANNAMARIA WOODWARD MD DATE: 06/22/21 [id number] 0 Course & Med Decision Making: Course & Med Decision Making Pertinent Labs and Imaging studies reviewed. (See chart for details) [] Patient presents to the emergency department for right flank pain that radiates to her right lower quadrant and dribbling of urine. Patient has a history of kidney stones and reports that this feels just like her kidney stones. Work-up in the ER consisted of blood work, urinalysis and CT imaging of abdomen and pelvis. Patient be treated with IV fluids and pain medication. Blood work was mostly unremarkable. CT scan does show a 6 mm stone in the distal right ureter causing mild right-sided hydronephrosis. Patient's urine shows 5-10 white blood cells bacteria but there are many epithelial cells and no leukocytes or nitrates likely indicating contamination. Patient will be discharged home with pain medication and Flomax and advised to follow-up with urology. Advised to strain urine. She was given referral information for urology. Patient is not having any active vomiting and she is tolerating oral intake. I discussed with patient all findings and diagnostic testing as well as the need to follow-up with PCP for further evaluation and treatment or return to the ER if any new or worsening symptoms. Strict return precautions were also discussed at length. Patient voiced understanding and agreement with the plan. Patient is hemodynamically stable at the time of disposition. Dragon Disclaimer: [email or web address] Disclaimer: This electronic medical record was generated, in whole or in part, using a voice recognition dictation system. Departure Departure Impression: Primary Impression: Kidney stone Disposition: 01 HOME / SELF CARE / HOMELESS Condition: GOOD Referrals: OLE BARRERA MD (PCP) ANDREA HASSAN DO Patient Instructions: Kidney Stones Additional Instructions: You were seen in the emergency department today for flank pain. It does appear that you have a kidney stone. You can take ibuprofen or naproxen for mild pain. You are being discharged home with pain medication. This medication is hydrocodone and Tylenol and a combination tablet. You can take this for severe pain. This medication contains Tylenol do not take any additional Tylenol. This medication may cause sedation so do not take when you need to be alert, driving a vehicle or with alcohol. You are also being discharged home with Flomax. This medication will help dilate the ureter so that you can pass the stone more easily. You should strain your urine and look for the stone. You will need to follow-up with urologist as soon as possible. You should return to the ER if you have worsening pain, fever, continued bloody urine, lighthead edness, shortness of breath, chest pain or any new or concerning symptoms. Scripts Tamsulosin Hcl (FLOMAX) 0.4 Mg Cap.er.24h 1 CAP PO DAILY for 10 Days, #10 CAP 0 Refills Prov: DAVID GUADARRAMA APRN 06/22/21 Hydrocodone Bit/Acetaminophen (HYDROCODONE-APAP 5-325 ) 1 Tab Tablet 1 TAB PO PRN Q6HRS PRN for PAIN for 2 Days, #8 TAB 0 Refills Prov: DAVID GUADARRAMA APRN 06/22/21 DAVID GUADARRAMA APRN Jun 22, 2021 20:02
[2021-06-22 20:10] LABS: BASO # 0.1 x10^3/uL (0.0-0.2); BASO % 1 % (0-3); EOS # 0.2 x10^3/uL (0.0-0.7); EOS % 1 % (0-3); HEMATOCRIT 40.5 % (36.0-47.0); HEMOGLOBIN 13.8 g/dL (12.0-15.5); LYMPH # 4.2 x10^3/uL (1.0-4.8); LYMPH % 37 % (24-48); MEAN CORPUSCULAR HEMOGLOBIN 32 pg (25-35); MEAN CORPUSCULAR HGB CONC 34 g/dL (31-37); MEAN CORPUSCULAR VOLUME 94 fL (79-100); MONO % 9 % (0-9); NEUT # 5.9 x10^3/uL (1.8-7.7); NEUT % 52 % (31-73); PLATELET COUNT 330 x10^3/uL (140-400); RED BLOOD COUNT 4.29 x10^6/uL (3.50-5.40); WHITE BLOOD COUNT 11.3 x10^3/uL (4.0-11.0)
[2021-06-22 20:21] LABS: CALCIUM 8.6 mg/dL (8.5-10.1); CREATININE 0.8 mg/dL (0.6-1.0); GFR 79.9; POTASSIUM 5.1 mmol/L (3.5-5.1)
[2021-06-22 20:34] LABS: ALBUMIN 3.6 g/dL (3.4-5.0); ALBUMIN/GLOBULIN RATIO 0.9 (1.0-1.7); TOTAL BILIRUBIN 0.3 mg/dL (0.2-1.0); TOTAL PROTEIN 7.8 g/dL (6.4-8.2)
--- NOTE | 2021-06-22 20:38 | RAD ---
Exam: CT of abdomen and pelvis without contrast INDICATION: Flank pain, rule out kidney stone TECHNIQUE: Sequential axial images through the abdomen and pelvis obtained without IV contrast. Sagit ricardo and coronal reformatted images were reconstructed from the axial data and reviewed. Exposure: One or more of the following in the visualized dose reduction techniques were utilized for this examination: 1. Automated exposure control 2. Adjustment of the MA and/or KV according to patient size 3. Use of iterative of reconstructive technique Comparisons: 04/05/2020 FINDINGS: Heart size is normal. No pericardial effusion. Visualized lung bases are clear. No pleural effusion. Evaluation of solid organs is limited secondary to noncontrast technique. Liver, spleen, pancreas, gallbladder and adrenals are unremarkable. There is mild right-sided hydronephrosis. Bilateral nonobstructing renal calculi are noted. 6 mm calc ulus the distal right ureter. Bladder is decompressed not well evaluated. Uterus is absent. No abnormal adnexal mass. Diverticulosis is noted at the sigmoid colon without evidence of acute diverticulitis. Appendix is no rmal. Small bowel is unremarkable. No free intra-abdominal air or fluid. No obstruction. Abdominal aorta has normal course and caliber. No enlarged intra-abdominal lymph nodes are identified. No suspicious osseous lesions or acute fractures. IMPRESSION: 1. A 6 mm calculus the distal right ureter causing mild right-sided hydronephrosis. 2. Nonobstructing bilateral renal calculi. Electronically signed by: Annamaria Watters MD (06/22/2021 8:36 PM) [facility]
[2021-06-22] MEDS ORDERED: MORPHINE SULFATE 2 MG/ML INJ. IVP ONE ×2 (21:00→21:30)
[2021-06-22] MEDS ORDERED: KETOROLAC 30 MG/ML VIAL. IVP ONE (21:00)
[2021-06-22] MEDS ORDERED: TAMS0.4C97 PO (21:25)
[2021-06-22] MEDS ORDERED: HYDR-2761 PO (21:25)
[2021-06-22 21:59] VITALS: BP 153/82
== END 2021-06-22 22:25 | disposition home or self-care (01) ==
LOC: ER 19:27
DX: N13.2 Hydronephrosis with renal and ureteral calculous obstruction (principal); E03.9 Hypothyroidism, unspecified; G43.909 Migraine, unspecified, not intractable, without status migrainosus; Z90.710 Acquired absence of both cervix and uterus
CPT/HCPCS: 36415; 74176; 80053; 81001; 81025; 83690; 85025; 87086; 96361; 96374; 96375; 96376; 99284; J1885; J2270; J2405; J3010; J7030

== ENCOUNTER 2021-07-01 06:23 | Day surgery (SDC) | payer MEDICAID ==
[~2021-07-01] VITALS: Ht 165.1 cm; Wt 90.0 kg
[~2021-07-01 06:23] MED LIST changes: +CLONAZEPAM1 MG PO; +HYDR-2761 PO; +HYDROmorphone 2 MG/ML INJ. IVP PRN; +IV RINGERS,LACTATED 1000ML 1,000 ML IV SCH; +MORPHINE SULFATE 2 MG/ML INJ. IVP PRN; +PROCHLORPERAZINE 10 MG/2 ML VIAL. IVP PRN; +RIZA10TA PO; +VALA500T9 PO; +fentaNYL PF VIAL 100 MCG/2 ML VIAL IVP PRN
[2021-07-01] MEDS ORDERED: BUPIVACAINE-EPI 0.5% 30 ML VIAL KIT. ONE (07:31)
[2021-07-01] MEDS ORDERED: LIDOCAINE 2% PF 5 ML VIAL. ONE (07:34)
[2021-07-01] MEDS ORDERED: MIDAZOLAM HCL/PF 2 MG/2 ML VIAL. ONE (07:34)
[2021-07-01] MEDS ORDERED: fentaNYL PF VIAL 250 MCG/5 ML VIAL ONE (07:34)
[2021-07-01] MEDS ORDERED: PROPOFOL 10 MG/ML (20ML) VIAL. IV ONE (07:35)
[2021-07-01] MEDS ORDERED: ONDANSETRON PF 4 MG/2 ML VIAL. ONE (07:37)
[2021-07-01] MEDS ORDERED: DEXAMETHASONE SOD PHOS 4 MG/ML VIAL ONE (07:37)
[2021-07-01] MEDS ORDERED: HYDR-2765 PO (08:12)
--- NOTE | 2021-07-01 08:36 | DISCH ---
DISCHARGE INSTRUCTIONS Condition on Discharge Condition on Discharge: Stable Activity After Discharge Activity Instructions for Disc: Resume previous activity, Activity as tolerated Lifting Instructions after Dis: No heavy lifting Exercise Instruction after Dis: Progress as tolerated Driving Instructions after Dis: Do not drive today Weight Bearing Status after Di: Full weight bearing, As tolerated Diet after Discharge Diet after Discharge: Regular Diet Texture: Regular Liquid Texture: Thin Liquid Swallowing Supervision: None needed Wound Incision Care Wound/Incision Care: Ice to area for comfort, Keep wound elevated Other wound/incision instructi: May change dressings postoperative day #3 Checks after Discharge Checks after discharge: Check blood press - daily Follow-Up Follow up with: Dr. Mattson in 10 to 14 days Treatment/Equipment after DC Adaptive Equipment Issued: None DON MATTSON Jr. DO Jul 01, 2021 08:36
[2021-07-01] MEDS ORDERED: SEVOFLURANE 31 TO 60 MINUTES. IH ONE (08:39)
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
[2021-07-01] MEDS ORDERED: HYDROcodone/APAP 7.5/325MG 1 TAB TABLET PO ONE (09:45)
[2021-07-01 10:00] VITALS: BP 95/57
--- NOTE | 2021-07-08 16:24 | OP ---
DATE OF SURGERY: 07/01/2021 PREOPERATIVE DIAGNOSIS: Anterior cruciate ligament tear, partial versus full with a tibial plateau injury, right knee. POSTOPERATIVE DIAGNOSIS: Partial anterior cruciate ligament tear with a tibial plateau fracturing or fissuring. PROCEDURE: Right knee arthroscopy with synovectomy and debridement of tibial plateau. SURGEON: Pato Arceo Jr, DO ANESTHESIA: General. COMPLICATIONS: None. ESTIMATED BLOOD LOSS: 20 mL. DESCRIPTION OF PROCEDURE: The patient was taken to the operative suite, given a general anesthetic, the right lower extremity was placed in a knee garcia, prepped and draped in a sterile fashion. Inferomedial and inferolateral portals were established. Knee was insufflated with saline. Visualization of the patellofemoral joint noted that to be completely intact and stable. This was tracking appropriately. Scope was then taken into the medial and lateral gutters. No loose bodies were noted in either medial or lateral gutters. Scope was then taken into the medial compartment. There was noted to be no tearing of the meniscus and the medial compartment was completely intact without any abnormalities or problems and probing of the meniscus noted this to be stable. The ACL was actually visualized, appeared to be completely intact. There was approximately 20% tear off the femoral origin of this ACL, but the remainder was completely intact as was the remainder of this. With probing, it was very stable. Intraoperative examination also noticed to be stable. PCL was also probed and noted to be stable. The lateral compartment was entered. The femoral side was completely intact. There was some fissuring on the tibial side of the plateau, but nothing significant. Minimal debridement was undertaken. After this, there was a significant amount of synovitis. This was debrided back to stable tissue. This was then thoroughly irrigated. No other abnormalities were noted. Therefore, all instruments were removed after this was suctioned dry. Local was placed in the portal sites. They were reapproximated in an interrupted fashion. Sterile dressing was then applied. The patient was then taken from the operative bed to the postoperative bed, taken to the PACU in stable condition. KERLINE DR: Cuauhtemoc TID: [id number]
== END 2021-07-01 10:08 | disposition home or self-care (01) ==
LOC: SURG 06:23
PROVIDERS: ATTEND Orthopaedic Surgery
DX: S83.511A Sprain of anterior cruciate ligament of right knee, initial encounter (principal); K21.9 Gastro-esophageal reflux disease without esophagitis; E03.9 Hypothyroidism, unspecified; F41.9 Anxiety disorder, unspecified; F32.9 Major depressive disorder, single episode, unspecified; Z90.710 Acquired absence of both cervix and uterus; Z90.49 Acquired absence of other specified parts of digestive tract; Z98.890 Other specified postprocedural states; Z79.899 Other long term (current) drug therapy; X58.XXXA Exposure to other specified factors, initial encounter; Y93.89 Activity, other specified; Y92.89 Other specified places as the place of occurrence of the external cause; Y99.8 Other external cause status
CPT/HCPCS: 29875; A4930; J0690; J0780; J1100; J2250; J2405; J2704; J3010; A4223

== ENCOUNTER 2021-07-07 21:58 | Emergency (ER) | payer MEDICAID ==
[~2021-07-07] VITALS: Ht 175.3 cm; Wt 86.0 kg
[~2021-07-07 21:58] MED LIST changes: +HYDR-2765 PO; -HYDROmorphone 2 MG/ML INJ. IVP PRN; -IV RINGERS,LACTATED 1000ML 1,000 ML IV SCH; -MORPHINE SULFATE 2 MG/ML INJ. IVP PRN; -PROCHLORPERAZINE 10 MG/2 ML VIAL. IVP PRN; -fentaNYL PF VIAL 100 MCG/2 ML VIAL IVP PRN
[2021-07-07] MEDS ORDERED: PROCHLORPERAZINE 10 MG/2 ML VIAL. IV ONE (22:15)
[2021-07-07] MEDS ORDERED: MORPHINE SULFATE 4 MG/ML INJ. IVP ONE (22:15)
[2021-07-07] MEDS ORDERED: TAMSULOSIN 0.4 MG CAP.ER.24H. PO ONE (22:15)
[2021-07-07] MEDS ORDERED: KETOROLAC 30 MG/ML VIAL. IVP ONE (22:15)
[2021-07-07 22:25] LABS: BILIRUBIN,URINE NEGATIVE (NEG); CLARITY,URINE CLEAR; COLOR,URINE AMBER; NITRITE,URINE NEGATIVE (NEG); PROTEIN,URINE NEGATIVE (NEG-TRACE); UROBILINOGEN,URINE 0.2 mg/dL (0.2 mg/dL)
[2021-07-07 22:27] LABS: BASO # 0.1 x10^3/uL (0.0-0.2); BASO % 1 % (0-3); EOS # 0.1 x10^3/uL (0.0-0.7); EOS % 2 % (0-3); HEMATOCRIT 40.2 % (36.0-47.0); HEMOGLOBIN 13.2 g/dL (12.0-15.5); LYMPH # 3.8 x10^3/uL (1.0-4.8); LYMPH % 49 % (24-48); MEAN CORPUSCULAR HEMOGLOBIN 31 pg (25-35); MEAN CORPUSCULAR HGB CONC 33 g/dL (31-37); MEAN CORPUSCULAR VOLUME 94 fL (79-100); MONO # 0.7 x10^3/uL (0.0-1.1); MONO % 9 % (0-9); NEUT # 3.1 x10^3/uL (1.8-7.7); NEUT % 40 % (31-73); PLATELET COUNT 386 x10^3/uL (140-400); RED BLOOD COUNT 4.27 x10^6/uL (3.50-5.40); WHITE BLOOD COUNT 7.8 x10^3/uL (4.0-11.0)
[2021-07-07 22:31] LABS: BACTERIA,URINE FEW /HPF (0-FEW); CALCIUM 8.3 mg/dL (8.5-10.1); CREATININE 0.8 mg/dL (0.6-1.0); GFR 79.4; POTASSIUM 3.9 mmol/L (3.5-5.1)
[2021-07-07 22:36] LABS: ALBUMIN 3.3 g/dL (3.4-5.0); ALBUMIN/GLOBULIN RATIO 0.8 (1.0-1.7); TOTAL BILIRUBIN 0.4 mg/dL (0.2-1.0); TOTAL PROTEIN 7.5 g/dL (6.4-8.2)
--- NOTE | 2021-07-07 22:55 | PHYS DOC ---
Past Medical History Past Medical History: Anxiety, Depression, Hypothyroid, Kidney Stone, Migraines, Other Additional Past Medical Histor: ptsd,herpes symplex,hydroureternephosis,angio edema Past Surgical History: Hysterectomy, Tonsillectomy, Other Additional Past Surgical Histo: lithotripsy, RLE fx repair x 3 Smoking Status: Never Smoker Alcohol Use: None Drug Use: None General Adult EDM: Chief Complaint: FLANK PAIN HPI: HPI: Patient is a 41 year old female with a history of anxiety, depression, kidney stones, presenting today complaining of 10 out of 10 sharp intermittent right flank pain radiating to the right lower quadrant, symptoms have been going on for days. Patient states she was seen in the ED June 22, 2021 for the same pain and was diagnosed with a 6 mm kidney stone right distal ureter stone. She states she does not believe she passed it. She states she has not been able to follow-up with a urologist because she had to have right knee surgery. Patient is also complaining of nausea, vomiting. She states she ran out of her pain medicine yesterday. Denies any hematuria. Denies anything specifically exacerbating or relieving her pain. Review of Systems: Review of Systems: Constitutional: Denies fever or chills. [] Eyes: Denies change in visual acuity. [] HENT: Denies nasal congestion or sore throat. [] Respiratory: Denies cough or shortness of breath. [] Cardiovascular: Denies chest pain or edema. [] GI: Reports nausea and vomiting and pain radiating to the right lower quadrant. Denies bloody stools or diarrhea. [] : Reports right flank pain. Denies dysuria. [] Musculoskeletal: Denies back pain or joint pain. [] Integument: Denies rash. [] Neurologic: Denies headache, focal weakness or sensory changes. [] Endocrine: Denies polyuria or polydipsia. [] Lymphatic: Denies swollen glands. [] Psychiatric: Denies depression or anxiety. [] Heart Score: C/O Chest Pain: N/A Risk Factors: Risk Factors: DM, Current or recent (<one month) smoker, HTN, HLP, family history of CAD, obesity. Risk Scores: Score 0 - 3: 2.5% MACE over next 6 weeks - Discharge Home Score 4 - 6: 20.3% MACE over next 6 weeks - Admit for Clinical Observation Score 7 - 10: 72.7% MACE over next 6 weeks - Early Invasive Strategies Current Medications: Current Medications Medications (Trade) Dose Ordered Sig/Clarissa Start Time Stop Time Status Last Admin Dose Admin Ketorolac Tromethamine (Toradol 30mg Vial) 30 mg 1X ONCE 07/07/21 22:15 07/07/21 22:20 DC Morphine Sulfate (Morphine Sulfate) 4 mg 1X ONCE 07/07/21 22:15 07/07/21 22:20 DC Prochlorperazine Edisylate (Compazine) 10 mg 1X ONCE 07/07/21 22:15 07/07/21 22:20 DC Tamsulosin HCl (Flomax) 0.4 mg 1X ONCE 07/07/21 22:15 07/07/21 22:20 DC Allergies: Allergies: Allergies Coded Allergies Type Severity Reaction Last Updated Verified No Known Drug Allergies 07/01/21 No Physical Exam: PE: Constitutional: Well developed, well nourished, no acute distress, non-toxic appearance. [] HENT: Normocephalic, atraumatic, bilateral external ears normal, oropharynx moist, no oral exudates, nose normal. [] Eyes: PERRLA, EOMI, conjunctiva normal, no discharge. [] Neck: Normal range of motion, no tenderness, supple, no stridor. [] Cardiovascular:Heart rate regular rhythm, no murmur [] Lungs & Thorax: Bilateral breath sounds clear to auscultation [] Abdomen: Bowel sounds normal, soft, no tenderness, no masses, no pulsatile masses. [] Skin: Warm, dry, no erythema, no rash. [] Back: No tenderness, mild right CVA tenderness. [] Extremities: Right knee with 2 incision sites from surgery recently, no signs of infection to the surgical sites, no tenderness, no cyanosis, no clubbing, ROM intact, no edema. [] Neurologic: Alert and oriented X 3, normal motor function, normal sensory function, no focal deficits noted. [] Psychologic: Affect normal, judgement normal, mood normal. [] Current Patient Data: Labs: Laboratory Tests Test 07/07/21 22:10 White Blood Count 7.8 x10^3/uL (4.0-11.0) Red Blood Count 4.27 x10^6/uL (3.50-5.40) Hemoglobin 13.2 g/dL (12.0-15.5) Hematocrit 40.2 % (36.0-47.0) Mean Corpuscular Volume 94 fL (79-100) Mean Corpuscular Hemoglobin 31 pg (25-35) Mean Corpuscular Hemoglobin Concent 33 g/dL (31-37) Red Cell Distribution Width 13.0 % (11.5-14.5) Platelet Count 386 x10^3/uL (140-400) Neutrophils (%) (Auto) 40 % (31-73) Lymphocytes (%) (Auto) 49 % (24-48) H Monocytes (%) (Auto) 9 % (0-9) Eosinophils (%) (Auto) 2 % (0-3) Basophils (%) (Auto) 1 % (0-3) Neutrophils # (Auto) 3.1 x10^3/uL (1.8-7.7) Lymphocytes # (Auto) 3.8 x10^3/uL (1.0-4.8) Monocytes # (Auto) 0.7 x10^3/uL (0.0-1.1) Eosinophils # (Auto) 0.1 x10^3/uL (0.0-0.7) Basophils # (Auto) 0.1 x10^3/uL (0.0-0.2) Urine Collection Type Unknown Urine Color Vicky Urine Clarity Clear Urine pH 6.0 (<5.0-8.0) Urine Specific [place] 1.025 (1.000-1.030) Urine Protein Negative mg/dL (NEG-TRACE) Urine Glucose (UA) Negative mg/dL (NEG) Urine Ketones (Stick) Negative mg/dL (NEG) Urine Blood Negative (NEG) Urine Nitrite Negative (NEG) Urine Bilirubin Negative (NEG) Urine Urobilinogen Dipstick 0.2 mg/dL (0.2 mg/dL) Urine Leukocyte Esterase Small (NEG) Urine RBC 1-2 /HPF (0-2) Urine WBC 1-4 /HPF (0-4) Urine Squamous Epithelial Cells Many /LPF Urine Bacteria Few /HPF (0-FEW) Urine Mucus Slight /LPF Sodium Level 141 mmol/L (136-145) Potassium Level 3.9 mmol/L (3.5-5.1) Chloride Level 105 mmol/L (98-107) Carbon Dioxide Level 25 mmol/L (21-32) Anion Gap 11 (6-14) Blood Urea Nitrogen 10 mg/dL (7-20) Creatinine 0.8 mg/dL (0.6-1.0) Estimated GFR (Cockcroft-Gault) 79.4 BUN/Creatinine Ratio 13 (6-20) Glucose Level 110 mg/dL (70-99) H Calcium Level 8.3 mg/dL (8.5-10.1) L Total Bilirubin 0.4 mg/dL (0.2-1.0) Aspartate Amino Transferase (AST) 13 U/L (15-37) L Alanine Aminotransferase (ALT) 28 U/L (14-59) Alkaline Phosphatase 61 U/L (46-116) Total Protein 7.5 g/dL (6.4-8.2) Albumin 3.3 g/dL (3.4-5.0) L Albumin/Globulin Ratio 0.8 (1.0-1.7) L Laboratory Tests 07/07/21 22:10 Laboratory Tests 07/07/21 22:10 Vital Signs: Vital Signs Date Time Temp Pulse Resp B/P (MAP) Pulse Ox O2 Delivery O2 Flow Rate FiO2 07/07/21 22:00 97.8 99 18 109/75 (86) 99 Room Air 97.8 EKG: EKG: [] Radiology/Procedures: Radiology/Procedures: []PROCEDURE: CT ABDOMEN PELVIS WO CONTRAST PQRS Compliance Statement: One or more of the following individualized dose reduction techniques were utilized for this examination: 1. Automated exposure control 2. Adjustment of the mA and/or kV according to patient size 3. Use of iterative reconstruction technique CT abdomen/pelvis without contrast 07/07/2021 10:23 PM INDICATION: Flank pain, right lower quadrant pain. History of kidney stones. COMPARISON: CT abdomen/pelvis 06/22/2021 TECHNIQUE: Multiple axial CT images of the abdomen and pelvis were obtained without intravenous contrast. Coronal and sagittal reformats are provided. FINDINGS: Lung bases are clear. Heart size within normal limits. Evaluation of the solid abdominal viscera is limited by lack of intravenous contrast. Liver, spleen, adrenal glands and pancreas are normal in appearance. Gallbladder is present without adjacent inflammation. The abdominal aorta is normal in course and caliber. There are no pathologically enlarged lymph nodes in the abdomen and pelvis. There is no abdominal free fluid. There is no free intraperitoneal air. There is moderate to advanced diverticulosis. Small and large bowel are normal in caliber. There is no evidence for bowel obstruction. There are no pericolonic inflammatory changes. A normal, nondilated appendix is visualized without adjacent inflammatory changes. Bilateral nonobstructing renal calculi are identified measuring up to 4 mm in inferior pole the left kidney and 6 mm in the superior pole right kidney. No calculi identified within the ureters or urinary bladder. Previously seen calculus within the right distal ureter appears past. No suspicious osseous abnormality is identified. Urinary bladder is within normal limits given degree of distention. Tampon may be present. IMPRESSION: No findings to suggest obstructive uropathy. Bilateral nonobstructing renal calculi without calculi identified in the ureters or urinary bladder. Previously seen right ureteral calculus has passed. Moderate to advanced diverticulosis. Electronically signed by: Burt Barbosa MD (07/07/2021 11:20 PM) [facility] DICTATED and SIGNED BY: BURT BARBOSA MD DATE: 07/07/21 [id number] 0 Course & Med Decision Making: Course & Med Decision Making Pertinent Labs and Imaging studies reviewed. (See chart for details) This is a 41-year-old female patient presenting to the ED today complaining of right flank pain radiating to the right lower quadrant, patient states symptoms have been going on for a while. She was diagnosed with a 6 mm right distal ureteral stone on June 22, 2021 mild right-sided hydronephrosis. CBC, CMP with no acute findings. UA is contaminated with squamous cells epithelium CT of the abdomen and pelvis was negative for any obstructive uropathy. Bilateral nonobstructing renal calculi without calculi identified in the ureters or urinary bladder. Previously seen right ureteral calculus has passed. Mode rate to advanced diverticulosis. Discharged home. Follow-up with PCP in 1 week, provided urologist for follow-up Obi Disclaimer: Obi Disclaimer: This electronic medical record was generated, in whole or in part, using a voice recognition dictation system. Departure Departure Impression: Primary Impression: Right flank pain Disposition: HOME / SELF CARE / HOMELESS Condition: STABLE Referrals: OLE BARRERA MD (PCP) follow up next week OCTAVIANO TREJO MD follow up in the next seven day Patient Instructions: Flank Pain, [id number] Additional Instructions: You were evaluated in the emergency room, your CT of the abdomen and pelvis was negative for any obstructive kidney stones. Please follow-up with your urologist and primary care doctor in the next 7 days CLAU CHERRY APRN Jul 07, 2021 22:55
--- NOTE | 2021-07-07 23:22 | RAD ---
PQRS Compliance Statement: One or more of the following individualized dose reduction techniques were utilized for this examinat ion: 1. Automated exposure control 2. Adjustment of the mA and/or kV according to patient size 3. Use of iterative reconstruction technique CT abdomen/pelvis without contrast 07/07/2021 10:23 PM INDICATION: Flank pain, right lower quadrant pain. History of kidney stones. COMPARISON: CT abdomen/pelvis 06/22/2021 TECHNIQUE: Multiple axial CT images of the abdomen and pelvis were obtained without intravenous contr ast. Coronal and sagittal reformats are provided. FINDINGS: Lung bases are clear. Heart size within normal limits. Evaluation of the solid abdominal viscera is l imited by lack of intravenous contrast. Liver, spleen, adrenal glands and pancreas are normal in appe arance. Gallbladder is present without adjacent inflammation. The abdominal aorta is normal in course and caliber. There are no pathologically enlarged lymph nodes in the abdomen and pelvis. There is no abdominal free fluid. There is no free intraperitoneal air. T here is moderate to advanced diverticulosis. Small and large bowel are normal in caliber. There is no evidence for bowel obstruction. There are no pericolonic inflammatory changes. A normal, nondilated appendix is visualized without adjacent inflammatory changes. Bilateral nonobstructing renal calculi are identified measuring up to 4 mm in inferior pole the left kidney and 6 mm in the superior pole right kidney. No calculi identified within the ureters or urinar y bladder. Previously seen calculus within the right distal ureter appears past. No suspicious osseou s abnormality is identified. Urinary bladder is within normal limits given degree of distention. Tampon may be present. IMPRESSION: No findings to suggest obstructive uropathy. Bilateral nonobstructing renal calculi without calculi i dentified in the ureters or urinary bladder. Previously seen right ureteral calculus has passed. Moderate to advanced diverticulosis. Electronically signed by: Maribell Tafoya MD (07/07/2021 11:20 PM) ESTRELLA
[2021-07-08 00:34] VITALS: BP 95/53
== END 2021-07-08 01:01 | disposition home or self-care (01) ==
LOC: ER 21:58
DX: R10.31 Right lower quadrant pain (principal); R11.0 Nausea; E03.9 Hypothyroidism, unspecified; G43.909 Migraine, unspecified, not intractable, without status migrainosus; F43.10 Post-traumatic stress disorder, unspecified; Z90.710 Acquired absence of both cervix and uterus
CPT/HCPCS: 36415; 74176; 80053; 81001; 85025; 87086; 96374; 96375; 99285; J0780; J1885; J2270